=== PATIENT | female | born 1955 | race Caucasian/White ===

== ENCOUNTER → 2020-01-21 14:11 | Outpatient (CLI) | payer BC, SELFPAY ==
--- NOTE | ~2020-01-21 | XR_ITS ---
XR abdomen/kub 1V 01/21/2020 14:38 Indication: Left renal stones Procedure: KUB Comparison: No prior studies for comparison. Findings: There are left renal stones, largest measuring 1.8 cm. Bowel pattern nonobstructive. No acu te osseous abnormality. Lung bases unremarkable. There is a healed left 10th rib fracture. Impression: 1: Left nephrolithiasis. Reviewed, dictated and finalized at location B. NG RUNNING MACHINE TENDER Impression: 1: Left nephrolithiasis.
--- NOTE | ~2020-01-21 | CT_ITS ---
EXAMINATION: CT abdomen pelvis wo con DATE: 01/21/2020 14:40 INDICATION: Nephrolithiasis with left ureteropelvic junction obstruction TECHNIQUE: Computed tomography (CT) of the abdomen and pelvis was performed without intravenous contr ast. Automated exposure control and iterative reconstruction technique were employed. The dose-length product was 490.80 mGy-cm. COMPARISON: KUB dated 01/21/2020 FINDINGS: Lung bases are clear. Heart size is normal. No pericardial or pleural effusion. 12 mm hepatic cyst. G allbladder, spleen, pancreas and bilateral adrenal glands are normal. Bilateral low-attenuation subce ntimeter renal cysts. Bilateral nephrolithiasis with 1 nonobstructing 1 mm stone in the mid right kid jeffery. 1.7 x 1.4 x 1.2 cm obstructing stone at the left ureteropelvic junction with mild to moderate le ft hydronephrosis. There is an additional 5 mm stone at a lower pole calyx of the left kidney. No sto rosendo seen along the normal bilateral ureters. Bowels including the appendix are normal. Bladder is nor mal. The uterus is not identified and has likely been surgically resected. No free intraperitoneal ga s or fluid. No pathologically enlarged abdominal or pelvic lymphadenopathy. Severe spondylosis at the lumbosacral junction. IMPRESSION: 1. Bilateral nephrolithiasis with large obstructing stone at the left ureteropelvic junction with mil d to moderate left hydronephrosis. Reviewed, dictated and finalized at location A. HT ATTENDANT/INFLIGHT SUPERVISOR IMPRESSION: 1. Bilateral nephrolithiasis with large obstructing stone at the left ureterope lvic junction with mild to moderate left hydronephrosis.
== END ==
PROVIDERS: PCP Family Medicine Adolescent Medicine; Visit Provider Urology
DX: N20.2 Calculus of kidney with calculus of ureter (principal)
CPT/HCPCS: 74018; 74176

== ENCOUNTER → 2020-02-26 10:59 | Outpatient (CLI) | payer BC, SELFPAY ==
--- NOTE | ~2020-02-26 | MM_ITS ---
EXAMINATION: MM screening susanna BI w yudi HISTORY: Screening mammogram, family history of breast cancer in her sister. TECHNIQUE: Craniocaudal and mediolateral oblique 3-D tomosynthesis images were obtained and synthetic 2-D images were generated. CAD analysis was submitted and interpreted. COMPARISON: 09/12/2017, 01/07/2016, 06/02/2013 BREAST PARENCHYMAL COMPOSITION: There are scattered areas of fibroglandular density. FINDINGS: There is no evidence of suspicious mass, calcification, or architectural distortion to sugg est malignancy in either breast. There has been no suspicious interval change. IMPRESSION: 1. No mammographic evidence of malignancy. 2. Recommend routine screening mammography in one year. BI-RADS Category 1: Negative Reviewed, dictated and finalized at location A. ITY TENDER CARDING
--- NOTE | ~2020-02-26 | DEXA_ITS ---
Bone Density Report Name: Qi Anderson Age: 65 Sex: Female Ethnicity: White Date of : 1955 Indication: osteopenia; height loss; prior fracture; hysterectomy; postmenopausal Referring Provider: Enedelia, Tresa Paul Study: Bone densitometry was performed. Exam Date: February 26, 2020 Accession number: [id number] Bone Density: Region BMD T-score Z-score Classification AP Spine (L1-L4) 0.863 -1.7 0.0 Osteopenia Femoral Neck (Left) 0.678 -1.5 -0.1 Osteopenia Total Hip (Left) 0.832 -0.9 0.3 Normal Femoral Neck (Right) 0.685 -1.5 0.0 Osteopenia Total Hip (Right) 0.888 -0.4 0.7 Normal Total Hip Mean 0.860 -0.7 0.5 Normal World Health Organization criteria for BMD impression classify patients as: Normal (T-score at or above -1.0), Osteopenia (T-score between -1.0 and -2.5), or Osteoporosis (T-score at or below -2.5). 10-year Fracture Risk(1): Major Osteoporotic Fracture 14% Hip Fracture 1.4% Reported Risk Factors: [place] (), Neck BMD=0.678, BMI=31.3, previous fracture (1) FRAX(R) Version 3.08. Fracture probability calculated for an untreated patient. Fracture probability may be lower if the patient has received treatment. Previous Exams: Region Exam Age BMD T-score BMD Change BMD Change Date g/cm2 vs Baseline vs Previous AP Spine(L1-L4) 02/26/2020 65 0.863 -1.7 -0.015 -0.007 06/02/2013 58 0.870 -1.6 -0.008 0.028* 12/07/2011 56 0.842 -1.9 -0.035* -0.035* 08/28/2005 50 0.877 -1.5 Total Hip(Left) 02/26/2020 65 0.832 -0.9 -0.062* 0.074* 06/02/2013 58 0.758 -1.5 -0.136* -0.004 12/07/2011 56 0.762 -1.5 -0.132* -0.132* 08/28/2005 50 0.894 -0.4 Total Hip(Right) 02/26/2020 65 0.888 -0.4 -0.029* 0.075* 06/02/2013 58 0.813 -1.1 -0.104* -0.013 12/07/2011 56 0.826 -0.9 -0.091* -0.091* 08/28/2005 50 0.917 -0.2 *Denotes significance at 95% confidence level, LSC for AP Spine = 0.022 g/cm2, LSC for Total Hip = 0.027 g/cm2 Clinical Information Provided by Patient: Has had a low trauma fracture Has used the following medications: Diana (i.e. ibandronate) Has the following medical conditions: Hysterectomy Patient maximum height was 65 Menopause Age: 37 No regular weight bearing exercise Drinks caffeinated beverages Onset of menses at age 16 Number of children 2
== END ==
PROVIDERS: PCP Family Medicine Adolescent Medicine; Visit Provider Physician Assistant
DX: Z12.31 Encounter for screening mammogram for malignant neoplasm of breast (principal); Z78.0 Asymptomatic menopausal state; M85.88 Other specified disorders of bone density and structure, other site; M85.852 Other specified disorders of bone density and structure, left thigh; M85.851 Other specified disorders of bone density and structure, right thigh
CPT/HCPCS: 77063; 77067; 77080

== ENCOUNTER 2020-02-27 09:12 | Outpatient (CLI) | payer BC, SELFPAY ==
--- NOTE | 2020-02-27 09:13 | ECG_ITS ---
Measurements Intervals [place] Rate: 90 P: 65 CT: 202 QRS: -13 QRSD: 106 T: 61 QT: 349 QTc: 429 Interpretive Statements SINUS RHYTHM POSSIBLE LEFT ATRIAL ENLARGEMENT INCOMPLETE RIGHT BUNDLE BRANCH BLOCK NONSPECIFIC ST & T-WAVE ABNORMALITY- ANT/HIGH LAT LEADS BORDERLINE ECG Electronically Signed On 02-27-2020 9:38:52 RESIDENT ATHLETIC TRAINER by Drew Russell D.O.
[2020-02-27 10:26] LABS: Partial Thromboplastin Time 28.6 SECONDS (22.3-36.8); Prothrombin Time 13.9 Seconds (11.1-14.7)
== END 2020-02-27 09:13 | disposition home or self-care (01) ==
LOC: ANHSURGERY 09:13
PROVIDERS: PCP Family Medicine Adolescent Medicine; Visit Provider Urology
DX: Z01.818 Encounter for other preprocedural examination (principal); I10 Essential (primary) hypertension; N20.1 Calculus of ureter; I45.10 Unspecified right bundle-branch block
CPT/HCPCS: 36415; 85610; 85730; 87086; 93005

== ENCOUNTER 2020-03-02 01:22 | Outpatient (CLI) | payer BC, SELFPAY ==
[2020-03-02 19:22] LABS: SARS-CoV-2 RNA PCR Negative
== END 2020-03-02 01:23 | disposition home or self-care (01) ==
LOC: ANHCOVIDDT 01:22
PROVIDERS: PCP Family Medicine Adolescent Medicine; Visit Provider Urology
DX: Z01.812 Encounter for preprocedural laboratory examination (principal); Z20.822 Contact with and (suspected) exposure to COVID-19
CPT/HCPCS: C9803; U0003; U0005

== ENCOUNTER 2020-03-05 02:29 | Day surgery (SDC) | payer BC, SELFPAY ==
[2020-02-26 13:54] VITALS: BMI 31.2
--- NOTE | 2020-02-29 08:36 | PM.IMHP ---
H&P: HPI History of Present Illness Date/Time: 02/29/20 08:36 Chief Complaint: Calculus UPJ Narrative: Qi Anderson is a 65 year old female with a large left UPJ stone and recurrent UTI Review of Systems Review of Systems: All systems reviewed & are unremarkable except as noted in HPI and below [facility] Past Medical History Medical History (Updated 02/29/20 @ 08:38 by Kirby Fermin MD) Hyperlipidemia Hypertension SLE (systemic lupus erythematosus) Family History Family History Other Diabetes mellitus Family history of arthritis Hypertension Social History Social History Smoking status: Never smoker Alcohol intake: never Gender identity (if verbalized by the patient): Female Spiritual care concerns: No Meds Home Medications and Allergies Home Medications Medication Instructions Recorded Confirmed Type amlodipine 5 mg PO DAILY 01/07/19 02/26/20 History fenofibrate 160 mg PO QPM 01/07/19 02/26/20 History ibandronate [Boniva] 150 mg PO MONTHLY 01/07/19 02/26/20 History losartan 50 mg PO DAILY 01/07/19 02/26/20 History meloxicam 15 mg PO DAILY 01/07/19 02/26/20 History gsjkrmvl-xataj-kcdux-CF borate 1 tablet PO BID 02/26/20 02/26/20 History [[facility]] trazodone 100 mg PO HS 02/26/20 02/26/20 History trimethoprim 100 mg PO HS 02/26/20 02/26/20 History Allergies Allergy/AdvReac Type Severity Reaction Status Date / Time clomiphene [From Clomid] Allergy Rash Verified 02/26/20 13:35 Exam Const: General: cooperative and healthy appearing HENMT: Head: normal to inspection Eyes: General: appearance normal, both eyes and all related structures Neck: Neck: normal visual inspection Resp: Effort & Inspection: normal respiratory effort and able to speak in complete sentences GI: Inspection: normal to inspection Back/Spine/Pelvis: Back: no CVA tenderness Skin: General skin exam: normal color Neuro: General: patient oriented x3 Extrem: General: normal to inspection Assessment and Plan Assessment and plan (1) Obstruction of left ureteropelvic junction (UPJ) due to stone: Code(s): N20.1 - Calculus of ureter Status: Acute Assessment and Plan: Left EWL with stent (2) Recurrent cystitis: Code(s): N30.90 - Cystitis, unspecified without hematuria Status: Acute
--- NOTE | ~2020-03-05 | XR_ITS ---
EXAMINATION: XR abdomen/kub 1V INDICATION: Left nephrolithiasis TECHNIQUE: Supine views of the abdomen were obtained on 2 radiographs. COMPARISON: 01/21/2020 FINDINGS: A 2.5 cm stone projects in the left renal pelvis. There is a 5 mm stone projecting in the l eft kidney lower pole. No stones are identified in the right kidney, along the expected courses of th e ureters, or within the bladder. There are phleboliths in the pelvis. The bowel gas pattern is ara l. Mild bilateral hip osteoarthritis is noted. IMPRESSION: 1. Stones in the left renal pelvis and left kidney lower pole. Reviewed, dictated and finalized at location A. BATOR MACHINE OPERATOR
[2020-03-05 06:26] VITALS: BP 135/69; PULSE 79; RESP 16; TEMP 36.4; O2SAT 99
[2020-03-05] MEDS: LACTATED RINGERS 1,000 ML 30 ML IV CONT ×2 (06:39→08:26)
--- NOTE | 2020-03-05 06:57 | P.PNAN_ITS ---
Anes - Initial Pre Proc Eval Procedure: Operation Date: 03/05/20 07:30 Proposed Procedures p Left Ureteral Extracorporeal Shock Wave Lithotripsy, Left Ureteral Stent Placement - Kirby Fermin MD Date/Time: 03/05/20 06:57 Surgeon: Kirby Fermin MD Pre Op Diagnosis: Calculus of Ureter Patient Data Age: 65 Gender: F Height: 5 ft 4 in Weight: 81.1 kg Last Vital Signs Temp 36.4 C 03/05/20 06:26 Pulse 79 03/05/20 06:26 Resp 16 03/05/20 06:26 BP 135/69 03/05/20 06:26 Pulse Ox 99 03/05/20 06:26 Allergies Allergy/AdvReac Type Severity Reaction Status Date / Time clomiphene [From Clomid] Allergy Mild Rash Verified 03/05/20 06:04 Home Medications Medication Instructions Recorded Confirmed Type amlodipine 5 mg PO DAILY 01/07/19 03/05/20 History fenofibrate 160 mg PO QPM 01/07/19 03/05/20 History ibandronate [Boniva] 150 mg PO MONTHLY 01/07/19 03/05/20 History losartan 50 mg PO DAILY 01/07/19 03/05/20 History meloxicam 15 mg PO DAILY 01/07/19 03/05/20 History yiqpupwa-vmbkj-lvgcq-CF borate 1 tablet PO BID 02/26/20 03/05/20 History [[facility]] trazodone 100 mg PO HS 02/26/20 03/05/20 History trimethoprim 100 mg PO HS 02/26/20 03/05/20 History Patient hx anesthesia problems: none Family hx anesthesia problems: none PMFSH Past Medical History Medical History Hyperlipidemia Hypertension SLE (systemic lupus erythematosus) Family History Family History Other Diabetes mellitus Family history of arthritis Hypertension Social History Social History Smoking status: Never smoker Alcohol intake: never Living arrangements: with family Gender identity (if verbalized by the patient): Female Spiritual care concerns: No Anes - Eval Final PreProcedure Day of Procedure 03/05/20 06:57 Patient weight: obese Heart: regular rate and rhythm Lungs: clear to auscultation Airway: Mallampati scale class II Neurological: alert and oriented Last oral intake: >/= 8 hours ASA classification: III Emergent: no Anesthetic plan: proceed Anesthesia type and monitoring: general LMA and standard monitoring Informed Consent: The patient's anesthetic plan and its attendant risks and benefits were discussed with the patient/family/POA. Questions were solicited and answers provided to the satisfaction of the patient/family/POA.
--- NOTE | 2020-03-05 07:16 | WPDHPUPDATE1 ---
History and Physical Update Update Date/Time: 03/05/20 07:16 History and Physical has been reviewed, including an updated exam of the patient. There are NO changes in the patient's condition. Risks, benefits, and alternatives have been discussed and questions answered. Patient agrees to proceed with procedure.
[2020-03-05] MEDS: ceFAZolin 2 GM/D5W 50 ML 2 GM/50 ML BAG IVPB (07:24)
[2020-03-05] MEDS: LIDOCAINE HCL 2% GEL UROJET 10 ML PKG MUCOUS MEM (07:30)
[2020-03-05 08:26] VITALS: BP 125/55; PULSE 86; RESP 12; TEMP 36.7; O2SAT 100
--- NOTE | 2020-03-05 08:26 | PM.PROC ---
Procedure Note - Detailed Date of procedure: 03/05/20 Pre-op diagnosis: Calculus of Ureter Post-op diagnosis: same Procedure performed: Cystoscopy with left stent placement Extracorporeal shockwave lithotripsy Description of procedure: She was correctly identified and informed consent was obtained. She is brought to the operating room. She was given general anesthesia. She was placed in a frogleg position. She was prepped and draped in a sterile fashion. Time-out performed. Cystoscopy revealed a normal-appearing bladder. Stone was easily visible on laser printing operator. I placed a guidewire into the kidney. I placed a 4.8 variable length stent. Proximal coil was in the upper pole kidney. Distal coil in the bladder. She was then repositioned for lithotripsy. The stone was targeted. The lithotripsy was completed. There appeared to be fragmentation of the stone. At the conclusion she was awakened and transferred to the PACU in stable condition. She understands her stone is quite large and may require more than 1 procedure. She declined percutaneous nephrolithotomy. Implants: None Anesthesia: GLMA Surgeon: Kirby Fermin MD Estimated blood loss (mL): 0 Drains: Yes (4.8 variable length stent) Packing: No Pathology: none sent Complications: No immediate complications Condition: stable Disposition: PACU
[2020-03-05 08:35] VITALS: BP 115/71; PULSE 73; RESP 12; O2SAT 100
[2020-03-05 08:50] VITALS: BP 132/73; PULSE 70; RESP 12; O2SAT 100
[2020-03-05 09:00] VITALS: BP 134/74; PULSE 88; RESP 12
[2020-03-05 09:30] VITALS: BP 125/72; PULSE 82; RESP 12
== END 2020-03-05 09:40 | disposition home or self-care (01) ==
PROVIDERS: PCP Family Medicine Adolescent Medicine; Visit Provider Urology
PROC: (CPT 50590; principal; 2020-03-05 07:30)
DX: N20.1 Calculus of ureter (principal); N30.90 Cystitis, unspecified without hematuria; I10 Essential (primary) hypertension; E78.5 Hyperlipidemia, unspecified; M32.9 Systemic lupus erythematosus, unspecified
CPT/HCPCS: 50590; 52332; 74018; A9270; C1758; C1769; C2617; J0690; J2250; J2405; J2704; J3010; J7120

== ENCOUNTER → 2020-03-12 14:36 | Outpatient (CLI) | payer BC, SELFPAY ==
--- NOTE | ~2020-03-12 | XR_ITS ---
EXAMINATION: XR abdomen/kub 1V INDICATION: Obstruction of the left ureteropelvic junction due to stones TECHNIQUE: Supine views of the abdomen were obtained on 2 radiographs. COMPARISON: 03/05/2020 FINDINGS: There is a 2 cm stone in the left kidney lower pole which appears to demonstrate decrease i n density and interval fragmentation since the comparison examination. A left internal ureteral stent has been placed in expected position. No definite stones are identified adjacent to the internal ure teral stent. Phleboliths are noted in the pelvis. IMPRESSION: 1. Decrease in size and density of a left kidney stone likely related to interval lithotripsy. Left i nternal ureteral stent in expected position. Reviewed, dictated and finalized at location A. EYOR IMPRESSION: 1. Decrease in size and density of a left kidney stone likely related to interv al lithotripsy. Left internal ureteral stent in expected position.
== END ==
PROVIDERS: PCP Family Medicine Adolescent Medicine; Visit Provider Urology
DX: N20.1 Calculus of ureter (principal)
CPT/HCPCS: 74018

== ENCOUNTER → 2020-03-25 08:12 | Outpatient (CLI) | payer BC, SELFPAY ==
--- NOTE | ~2020-03-25 | XR_ITS ---
XR abdomen/kub 1V DATE: 03/25/2020 08:33 INDICATION: Stone obstructing left ureteropelvic junction TECHNIQUE: AP projection, 2 views COMPARISON: 03/12/2020 KUB FINDINGS: Left internal urinary stent is again noted, unchanged in position since 03/12/2020. There are multiple calcifications overlying the mid and lower pole left kidney, the largest overlying the lower pole measuring up to 1.5 cm approximate maximal dimension. The psoas shadows are intact. No visceromegaly is evident. No evidence of bowel obstruction. IMPRESSION: Left internal urinary stent Left nephrolithiasis Reviewed, dictated and finalized at Location A. Reviewed, dictated and finalized at location A. CORNER MACHINE OPERATOR
== END ==
PROVIDERS: PCP Family Medicine Adolescent Medicine; Visit Provider Urology
DX: N20.1 Calculus of ureter (principal)
CPT/HCPCS: 74018

== ENCOUNTER 2020-07-02 08:01 | Outpatient (CLI) | payer BC, SELFPAY ==
--- NOTE | ~2020-07-02 | US_ITS ---
EXAMINATION: US retroperitoneal comp DATE: 07/02/2020 08:44 INDICATION: Left renal stone TECHNIQUE: Multiple ultrasound grayscale images of the kidneys were obtained. COMPARISON: CT dated 01/21/2020 FINDINGS: The right kidney measures 11.5 x 5.9 x 5.7 cm. The left kidney measures 10.7 x 4.5 x 5.8 cm. The kidn eys demonstrate normal echogenicity. 10 mm and 13 mm anechoic cysts in the right kidney. 10 mm anecho ic cyst at the lower pole of the left kidney. No right-sided hydronephrosis. Mild left hydronephrosis . Echogenic and shadowing stones versus clusters of stones filling 3 calyces at the lower pole of the left kidney and measuring from 1.1 cm to 2.4 cm. The bladder is normal. IMPRESSION: 1. Mild left hydronephrosis with large stones or clusters of smaller stones filling 3 of the calyces at the lower pole of the left kidney. Reviewed, dictated and finalized at location A. IMPRESSION: 1. Mild left hydronephrosis with large stones or clusters of smaller stones fi lling 3 of the calyces at the lower pole of the left kidney.
--- NOTE | ~2020-07-02 | XR_ITS ---
EXAMINATION: XR abdomen/kub 1V DATE: 07/02/2020 08:44 INDICATION: Left kidney stone. TECHNIQUE: A supine view of the abdomen on 2 radiographs was obtained. COMPARISON: CT abdomen and pelvis 01/21/2020 FINDINGS: There are no dilated loops of bowel. There are innumerable overlapping stones in the left k idney. The size of the largest stone is not clear. There are phleboliths in the pelvis. IMPRESSION: 1. Left kidney stones. Reviewed, dictated and finalized at location B. IMPRESSION: 1. Left kidney stones.
== END 2020-07-02 08:02 | disposition home or self-care (01) ==
PROVIDERS: PCP Family Medicine Adolescent Medicine; Visit Provider Urology
DX: N20.0 Calculus of kidney (principal)
CPT/HCPCS: 74018; 76770

== ENCOUNTER → 2020-12-06 07:56 | Outpatient (CLI) | payer BC, SELFPAY ==
--- NOTE | ~2020-12-06 | XR_ITS ---
XR abdomen/kub 1V 12/06/2020 08:41 Indication: Left renal stones Procedure: KUB Comparison: Comparison to multiple prior studies sequentially, with oldest reviewed study dated 03/05. Findings: Bowel gas pattern is nonobstructive with moderate colonic fecal loading. There are punctate radiodensities overlying the left kidney, suspicious for renal stones. No acute osseous abnormality. There is a left pelvic phlebolith. Impression: 1: Possible left nephrolithiasis. Reviewed, dictated and finalized at location B. Impression: 1: Possible left nephrolithiasis.
== END ==
PROVIDERS: PCP Family Medicine Adolescent Medicine; Visit Provider Urology
DX: N20.0 Calculus of kidney (principal)
CPT/HCPCS: 74018

== ENCOUNTER → 2021-08-26 07:21 | Outpatient (CLI) | payer OTHER, SELFPAY ==
--- NOTE | ~2021-08-26 | XR_ITS ---
EXAMINATION: XR abdomen/kub 1V INDICATION: Left-sided kidney stone TECHNIQUE: Supine views of the abdomen were obtained on 2 radiographs. COMPARISON: 12/06/2020 FINDINGS: No definite urolithiasis is identified. A punctate density projecting near the left kidney appears to be associated with the tip of the left 12th rib. There are phleboliths of the pelvis. The bowel gas pattern is normal. IMPRESSION: 1. No urolithiasis identified. Reviewed, dictated and finalized at location B.
== END ==
PROVIDERS: PCP Family Medicine Adolescent Medicine; Visit Provider Urology
DX: N20.0 Calculus of kidney (principal)
CPT/HCPCS: 74018

== ENCOUNTER → 2021-11-01 07:22 | Outpatient (CLI) | payer OTHER, SELFPAY ==
--- NOTE | ~2021-11-01 | MM_ITS ---
EXAMINATION: MM screening susanna BI w yudi HISTORY: Screening mammogram TECHNIQUE: Craniocaudal and mediolateral oblique 3-D tomosynthesis images were obtained and synthetic 2-D images were generated. CAD analysis was submitted and interpreted. COMPARISON: 02/26/2020, 09/12/2017, 12/28/2015 bilateral screening mammogram examinations BREAST PARENCHYMAL COMPOSITION: There are scattered areas of fibroglandular density. FINDINGS: There is no evidence of suspicious mass, calcification, or architectural distortion to sugg est malignancy in either breast. There has been no suspicious interval change. IMPRESSION: 1. No mammographic evidence of malignancy. 2. Recommend routine screening mammography in one year. BI-RADS Category 1: Negative Reviewed, dictated and finalized at location A.
== END ==
PROVIDERS: PCP Family Medicine Adolescent Medicine; Visit Provider Physician Assistant
DX: Z12.31 Encounter for screening mammogram for malignant neoplasm of breast (principal)
CPT/HCPCS: 77063; 77067

== ENCOUNTER → 2022-10-12 10:28 | Outpatient (CLI) | payer OTHER, SELFPAY ==
--- NOTE | ~2022-10-12 | XR_ITS ---
EXAMINATION: XR humerus LT INDICATION: Left shoulder pain TECHNIQUE: Two views of the left humerus are obtained. COMPARISON: None available FINDINGS: Bone alignment is normal. There is no fracture. The soft tissues are unremarkable. There is moderate osteoarthritis of the acromioclavicular joint. IMPRESSION: 1. Moderate acromioclavicular joint osteoarthritis. Reviewed, dictated and finalized at location A.
--- NOTE | ~2022-10-12 | XR_ITS ---
EXAMINATION: XR shoulder LT min 2V INDICATION: Left shoulder pain TECHNIQUE: Four views of the left shoulder are submitted. COMPARISON: None FINDINGS: Normal alignment. No fracture. There is moderate osteoarthritis of the acromioclavicular mariaelena int. Soft tissues are unremarkable. IMPRESSION: 1. Moderate osteoarthritis of the acromioclavicular joint. Reviewed, dictated and finalized at location A.
== END ==
PROVIDERS: PCP Family Medicine Adolescent Medicine; Visit Provider Family Medicine Adolescent Medicine
DX: M19.012 Primary osteoarthritis, left shoulder (principal)
CPT/HCPCS: 73030; 73060

== ENCOUNTER → 2023-01-15 10:31 | Outpatient (CLI) | payer OTHER, SELFPAY ==
--- NOTE | ~2023-01-15 | MM_ITS ---
EXAMINATION: MM screening susanna BI w yudi HISTORY: Screening mammogram TECHNIQUE: Craniocaudal and mediolateral oblique 3-D tomosynthesis images were obtained and synthetic 2-D images were generated. CAD analysis was submitted and interpreted. COMPARISON: 11/01/2021, 02/26/2020, 09/12/2017 bilateral screening mammogram examinations BREAST PARENCHYMAL COMPOSITION: There are scattered areas of fibroglandular density. FINDINGS: There is no evidence of suspicious mass, calcification, or architectural distortion to sugg est malignancy in either breast. There has been no suspicious interval change. IMPRESSION: 1. No mammographic evidence of malignancy. 2. Recommend routine screening mammography in one year. BI-RADS Category 1: Negative Reviewed, dictated and finalized at location A. 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
== END ==
PROVIDERS: PCP Family Medicine Adolescent Medicine; Visit Provider Family Medicine Adolescent Medicine
DX: Z12.31 Encounter for screening mammogram for malignant neoplasm of breast (principal)
CPT/HCPCS: 77063; 77067

== ENCOUNTER → 2023-01-15 10:33 | Outpatient (CLI) | payer OTHER, SELFPAY ==
--- NOTE | ~2023-01-15 | XR_ITS ---
XR abdomen/kub 1V 01/15/2023 11:22 INDICATION: Left kidney stone TECHNIQUE: KUB COMPARISON: None FINDINGS: Bowel gas pattern is normal. There is no evidence of free air, mass, organomegaly, ascites or obstruction. There is a 2 mm stone in the left kidney. Moderate lumbar spondylosis.. The bones a ppear intact. IMPRESSION: 1: Left nephrolithiasis.. Reviewed, dictated and finalized at location B. BORER IMPRESSION: 1: Left nephrolithiasis..
== END ==
PROVIDERS: PCP Urology; Visit Provider Urology
DX: N20.0 Calculus of kidney (principal)
CPT/HCPCS: 74018

== ENCOUNTER 2023-07-17 06:56 | Outpatient (CLI) | payer OTHER, SELFPAY ==
--- NOTE | ~2023-07-17 | XR_ITS ---
Supine and upright views of the abdomen Clinical history: Left renal stone COMPARISON: 01/15/2023 Findings: Bowel gas pattern is nonspecific. No evidence for obstruction or free air. 4 mm left lower pole renal stone noted. Osseous structures are intact. Impression: 4 mm left lower pole renal stone. Reviewed, dictated and finalized at [facility]. Impression: 4 mm left lower pole renal stone.
== END 2023-07-17 06:57 ==
PROVIDERS: PCP Family Medicine Adolescent Medicine; Visit Provider Urology
DX: N20.0 Calculus of kidney (principal)
CPT/HCPCS: 74018

== ENCOUNTER 2024-03-04 08:12 | Outpatient (CLI) | payer OTHER, SELFPAY ==
--- NOTE | ~2024-03-04 | XR_ITS ---
XR abdomen/kub 1V Ordering provider: Jose E Rodrigues MD History: . Kidney stone on L side . Comparison: None. FINDINGS: BOWEL: Nonobstructive bowel gas pattern. ORGANOMEGALY: None. SIGNIFICANT PATHOLOGIC CALCIFICATIONS: Left kidney stone. OTHER: No free air is seen under the diaphragm. Degenerative changes of the spine. Mild bilateral hip osteoarthritic changes. IMPRESSION: NO ACUTE ABDOMINAL FINDINGS. Left kidney stone. Reviewed, dictated and finalized at location A. NTORY ASSISTANT
== END 2024-03-04 08:13 | disposition home or self-care (01) ==
PROVIDERS: PCP Family Medicine Adolescent Medicine; Visit Provider Urology
DX: N20.0 Calculus of kidney (principal)
CPT/HCPCS: 74018

== ENCOUNTER 2024-07-30 09:40 | Outpatient (CLI) | payer OTHER, SELFPAY ==
--- NOTE | ~2024-07-30 | MM_ITS ---
EXAMINATION: MM screening susanna BI w yudi HISTORY: Screening TECHNIQUE: Craniocaudal and mediolateral oblique 3-D tomosynthesis images were obtained and synthetic 2-D images were generated. CAD analysis was submitted and interpreted. COMPARISON: Comparison to multiple prior studies sequentially, with oldest reviewed study dated 09/2015. BREAST PARENCHYMAL COMPOSITION: Not dense: There are scattered areas of fibroglandular density. FINDINGS: There is no evidence of suspicious mass, calcification, or architectural distortion to sugg est malignancy in either breast. There has been no suspicious interval change. IMPRESSION: 1. No mammographic evidence of malignancy. 2. Recommend routine screening mammography in one year. BI-RADS Category 1: Negative Reviewed, dictated and finalized at location B.
== END 2024-07-30 09:41 | disposition home or self-care (01) ==
LOC: MICIMG 09:41
PROVIDERS: PCP Family Medicine Adolescent Medicine; Visit Provider Family Medicine Adolescent Medicine
DX: Z12.31 Encounter for screening mammogram for malignant neoplasm of breast (principal)
CPT/HCPCS: 77063; 77067

== ENCOUNTER 2024-08-19 08:35 | Outpatient (CLI) | payer OTHER, SELFPAY ==
--- NOTE | ~2024-08-19 | DEXA_ITS ---
Bone Density Report Name: TRINIDAD ARMSTRONG Age: 69 Sex: Female Ethnicity: White Date of : 1955 Indication: osteopenia; hysterectomy; Referring Provider: CLAUS GIBSON Study: Bone densitometry was performed. Exam Date: August 19, 2024 Accession number: [id number] Bone Density: Region BMD T-score Z-score Classification AP Spine(L1-L4) 0.885 -1.5 0.5 Osteopenia Femoral Neck (Left) 0.600 -2.2 -0.5 Osteopenia Total Hip (Left) 0.730 -1.7 -0.3 Osteopenia Femoral Neck (Right) 0.683 -1.5 0.2 Osteopenia Total Hip (Right) 0.786 -1.3 0.1 Osteopenia Total Hip Mean 0.758 -1.5 -0.1 Osteopenia World Health Organization criteria for BMD impression classify patients as: Normal (T-score at or above -1.0), Osteopenia (T-score between -1.0 and -2.5), or Osteoporosis (T-score at or below -2.5). 10-year Fracture Risk(1): Major Osteoporotic Fracture 12% Hip Fracture 2.2% Reported Risk Factors: [place] (), Neck BMD=0.600, BMI=31.7 (1) FRAX(R) Version 3.08. Fracture probability calculated for an untreated patient. Fracture probability may be lower if the patient has received treatment. Previous Exams: -- Region Exam Age BMD T-score BMD Change BMD Change Date g/cm2 vs Baseline vs Previous -- AP Spine (L1-L4) 08/19/2024 69 0.885 -1.5 0.9%# 2.6%# 02/26/2020 65 0.863 -1.7 -1.7% -0.8% 06/02/2013 58 0.870 -1.6 -0.9% 3.3%* 12/07/2011 56 0.842 -1.9 -4.0%* -4.0%* 08/28/2005 50 0.877 -1.5 Total Hip(Left) 08/19/2024 69 0.730 -1.7 -18.3%# -12.2%# 02/26/2020 65 0.832 -0.9 -6.9%* 9.8%* 06/02/2013 58 0.758 -1.5 -15.2%* -0.5% 12/07/2011 56 0.762 -1.5 -14.8%* -14.8%* 08/28/2005 50 0.894 -0.4 Total Hip(Right) 08/19/2024 69 0.786 -1.3 -14.3%# -11.5%# 02/26/2020 65 0.888 -0.4 -3.2%* 9.2%* 06/02/2013 58 0.813 -1.1 -11.3%* -1.6% 12/07/2011 56 0.826 -0.9 -9.9%* -9.9%* 08/28/2005 50 0.917 -0.2 -- *Denotes significance at 95% confidence level, LSC for AP Spine = 0.022 g/cm2, LSC for Total Hip = 0.027 g/cm2 # Denotes dissimilar scan types or analysis methods Clinical Information Provided by Patient: Has used the following medications: Diana (i.e. ibandronate) Has the following medical conditions: Hysterectomy Patient maximum height was 65 Menopause Age: 37 No regular weight bearing exercise Does not regularly consume dairy products Drinks caffeinated beverages Onset of menses at age 15 Number of children 2 Impression: The patient has low bone mass, based on the Left Femoral Neck T-score. The patient has an estimated ten-year risk of hip fracture of 2.2% and an estimated ten-year risk of major fracture of 12%, based on the WHO FRAX algorithm. Unable to evaluate interval change due to the use of different scan modes. Discussion: BONE DENSITY IS LOW AT ONE OR MORE SKELETAL SITES. This patient's lowest T-score is low at one or more skeletal sites. It meets the World Health Organization's (WHO) criteria for ?low bone mass? (T-score between -1.0 and -2.5). The patient's 10-year risk of fracture as calculated by FRAX is less than the threshold where pharmacological therapy is recommended by the National Osteoporosis Foundation (NOF). However, all treatment decisions require clinical judgment and consideration of individual patient factors, including patient preferences, comorbidities, previous drug use, risk factors not captured in the FRAX model (e.g., frailty, falls, vitamin D deficiency, increased bone turnover, interval significant decline in bone density) and possible under or overestimation of fracture risk by FRAX. The patient should follow a healthful lifestyle (good nutrition with adequate calcium and vitamin D, and appropriate weight-bearing exercise). Follow-Up: Consider repeating this study in 2 to 3 years to reassess this patient's status, or sooner if there is some new clinical indication. Reported by: DIALLO on 08/19/2024 8:51:00 AM. Reviewed, dictated and finalized at location A.
== END 2024-08-19 08:36 | disposition home or self-care (01) ==
LOC: MICIMG 08:36
PROVIDERS: PCP Family Medicine Adolescent Medicine; Visit Provider Family Medicine Adolescent Medicine
DX: Z78.0 Asymptomatic menopausal state (principal); M85.88 Other specified disorders of bone density and structure, other site; M85.852 Other specified disorders of bone density and structure, left thigh; M85.851 Other specified disorders of bone density and structure, right thigh
CPT/HCPCS: 77080

== ENCOUNTER 2024-09-15 17:36 | Inpatient (IN) | payer OTHER, SELFPAY ==
--- NOTE | ~2024-09-15 | CT_ITS ---
CLINICAL INDICATION: Cough, fever, urinary tract infection and shortness of breath COMPARISON: 01/21/2020. TECHNIQUE: Multiple contiguous axial images of the chest, abdomen and pelvis were performed without t he administration of intravenous contrast The dose-length product (DLP) was 732.54 mGy-cm. Automated exposure control and iterative reconstruction technique were employed. FINDINGS/OBSERVATIONS: LUNG: Left basilar atelectasis. The remainder of the lungs are clear. MEDIASTINUM: Limited evaluation without intravenous contrast. HEART: The heart is of normal size, with a small pericardial effusion. SOFT TISSUES OF THE CHEST: Unremarkable. Liver: The liver demonstrates homogeneous attenuation and is not enlarged. Gallbladder and biliary system: The gallbladder is only minimally distended, and otherwise unremarkable. Pancreas: Limited evaluation of the pancreas secondary to the lack of intravenous contrast. Spleen: The spleen demonstrates homogeneous attenuation and is not enlarged. Kidneys: Global enlargement of the heterogeneous right kidney with moderate right-sided hydroureteronephrosis secondary to a 5 mm calcification within the proximal to mid right ureter. The left kidney and left ureter are unremarkable Adrenal glands: Unremarkable. Gastrointestinal tract: Fecal stasis within the colon. No free fluid within the abdomen or pelvis. Appendix: The air-filled appendix is of normal caliber (axial series, images 193-207). Vasculature: Unremarkable. Lymph nodes: Limited evaluation without intravenous contrast. Pelvic structures: The bladder is decompressed, limiting its evaluation. The uterus is either surgically absent or markedly atrophic. Body wall and musculoskeletal: No umbilical hernia. Age-appropriate degenerative disease within the thoracic and lumbosacral spines. IMPRESSION: Moderate right-sided hydroureteronephrosis secondary to a 5 mm calculus proximal to mid right ureter. Reviewed, dictated and finalized at location A. IMPRESSION: Moderate right-sided hydroureteronephrosis secondary to a 5 mm calculus proxima l to mid right ureter.
--- NOTE | ~2024-09-15 | XR_ITS ---
CHEST RADIOGRAPH, PA AND LATERAL CLINICAL HISTORY: unknown source of infection . COMPARISON: 05/28/2017 TECHNIQUE: PA and lateral views of the chest. FINDINGS The cardiomediastinal silhouette is unremarkable. Trace left basilar atelectasis. The remainder of the lungs are clear. IMPRESSION: Trace left basilar atelectasis, without focal infiltrate or effusion. Reviewed, dictated and finalized at location A.
--- NOTE | ~2024-09-15 | XR_ITS ---
EXAMINATION: XR retrograde pyelo w/stent RT DATE: 09/16/2024 15:40 CDT INDICATION: RIGHT STENT PLACEMENT . TECHNIQUE: 5 fluoroscopic images of the right abdomen and pelvis were obtained during right retrograd e pyelography with stent placement. Fluoroscopy exposure time was 12.4 seconds. Air Kerma 5.06 mGy. D AP 0.20 mGym2. COMPARISON: CT cap 09/07/2024; x-ray abdomen 09/16/2024 FINDINGS/IMPRESSION: Fluoroscopic documentation of right retrograde pyelography with stent placement. Please refer to the operative note for complete procedural details. Reviewed, dictated and finalized at location K.
--- NOTE | ~2024-09-15 | XR_ITS ---
XR abdomen/kub 1V 09/16/2024 01:29 Indication: Kidney stones Procedure: KUB Comparison: Comparison to multiple prior studies sequentially, with oldest reviewed study dated 09/2021. Findings: There is a left renal stone. Bowel gas pattern nonobstructive. Lung bases unremarkable. No acute osseous abnormality. Irregular shaped calcification at the L4-5 level on the right, suspicious for ureteral stone. Impression: 1: Possible right ureteral stone at the L4-5 level. 2: Left nephrolithiasis. Reviewed, dictated and finalized at location B. Impression: 1: Possible right ureteral stone at the L4-5 level. 2: Left nephrolithiasis.
--- OUTSIDE RECORDS SUMMARY | 2024-09-15 17:39 | XMS_ITS | Encounter Summary ---
Author Organization [facility] Address [address] [place] [address] Care Team Providers Care Traffic Ii Manager Name Role Phone Chacorta Valenzuela MD Primary Care Provider +1- [phone] Encounter Details Date Type Department Care Team (Late st Contact Info) Description 11/03/2020 Prep for Procedure [facility] [place] [address] Jose E Rodrigues MD [address] [facility] [place] [address] Social History Tobacco Use Types Packs/Day Years Used Date Smoking Tobacco: Never Smokeless Tobacco: Never Alcohol Use Standard Drinks/Week Comments Never 0 (1 standard drink = 0.6 oz pur e alcohol) Comments No Sex and Gender Information Value Date Recorded Sex Assigned at Not on file Legal Sex Female 12:55 PM CDT Gender Identity Not on file Sexual Orientation Not on file COVID-19 Exposure Response Date Recorded In the last month, have you been in contact with someone who was confirmed or suspected to have Coronavirus / COVID-19? No / Unsure 11/03/2020 5:07 AM CDT documented as of this encounter Functional Status * Calculated C-SSRS Risk Score (Lifetime/Recent) Answer Date of Assessment Author Status No Risk Indicated 11/03/2020 5:58 AM CDT Labadie, Erica la V, RN Active * [place] Suicide Severity Rating Scale (Screener/Recent Self-Report) Question Answer Date of Assessment Author Status 1. Wish to be (Past 1 Month) No 11/03/2020 5:58 AM CDT Mony Nicole RN Act sebastien 2. Non-Specific Active Suicidal Thoughts (Past 1 Month) No 11/03/2020 5:58 AM CDT Mony Nicole RN Act sebastien 6. Suicidal Behavior (Lifetime) No 11/03/2020 5:58 AM CDT Mony Nicole RN Act sebastien documented as of this encounter Plan of Treatment Not on file documented as of this encounter Results * (ABNORMAL) BASIC METABOLIC PANEL (11/01/2020 8:37 AM CDT) [facility] GLUCOSE 98 70 - 99 MG/DL 11/01/2020 9:55 AM CDT [facility] BUN 19(H) 7 - 18 MG/DL 11/01/2020 9:55 AM CDT [facility] CREATININE S/P/B 1.10(H) 0.55 - 1.02 MG/DL 11/01/2020 9:55 AM CDT [facility] SODIUM S/P/B 140 136 - 145 MMOL/L 11/01/2020 9:55 AM CDT [facility] POTASSIUM S/P/B 4.3 3.5 - 5.1 MMOL/L 11/01/2020 9:55 AM CDT [facility] CHLORIDE S/P/B 106 100 - 108 MMOL/L 11/01/2020 9:55 AM CDT [facility] CO2 28.3 21 - 32 MMOL/L 11/01/2020 9:55 AM CDT [facility] CALCIUM S/P/B 9.7 8.5 - 10.1 MG/DL 11/01/2020 9:55 AM CDT [facility] ANION GAP 5.7 5 - 15 MMOL/L 11/01/2020 9:55 AM CDT [facility] BUN CREATININE RATIO 17.3 6 - 26 11/01/2020 9:55 AM CDT [facility] EGFR NON-AFR. AMER. 53(L) >90 ML/MIN/1.7 3 M2 11/01/2020 9:55 AM CDT [facility] EGFR AFR. AMER. 61(L) >90 ML/MIN/1.7 3 M2 11/01/2020 9:55 AM CDT [facility] Comment: NOTE: eGFR is not calculated for patients <18 years of age. This is an estimated GFR (CKD EPI) and should not be used for calculating drug doses. 11/01/2020 8:37 AM CDT Gretchen Llamas [facility] Final R esult [facility] [address] [place] [address], [place] [phone] * (ABNORMAL) CBC W/DIFF AUTOMATED (11/01/2020 8:37 AM CDT) WBC 7.4 4.5 - 11.0 x10'3/uL 11/01/2020 9:36 AM CDT [facility] RBC 4.10(L) 4.20 - 5.40 x10'6/uL 11/01/2020 9:36 AM CDT [facility] HGB 11.6(L) 12.0 - 16.0 G/DL 11/01/2020 9:36 AM CDT [facility] HCT 36.1(L) 38.0 - 48.0 % 11/01/2020 9:36 AM CDT [facility] MCV 88.0 81.0 - 99.0 FL 11/01/2020 9:36 AM CDT [facility] MCH 28.3 27.0 - 31.0 PG 11/01/2020 9:36 AM CDT [facility] MCHC 32.1 32.0 - 36.0 G/DL 11/01/2020 9:36 AM CDT [facility] RDW 12.7 11.5 - 14.5 % 11/01/2020 9:36 AM CDT [facility] PLT 294 130 - 400 x10'3/uL 11/01/2020 9:36 AM CDT [facility] MPV 9.6 9.3 - 12.2 FL 11/01/2020 9:36 AM CDT [facility] DIFFERENTIAL TYPE AUTOMATED DIFFERENTIAL 11/01/2020 9:36 AM CDT [facility] NEUTROPHILS % 58.0 % 11/01/2020 9:36 AM CDT [facility] LYMPHOCYTES % 26.1 % 11/01/2020 9:36 AM CDT [facility] MONOCYTES % 9.8 % 11/01/2020 9:36 AM CDT [facility] EOSINOPHILS 5.0 % 11/01/2020 9:36 AM CDT [facility] BASOPHILS 0.4 % 11/01/2020 9:36 AM CDT [facility] IMMATURE GRANS % 0.7 % 11/02/19 9:36 AM CDT [facility] ABS. NEUTROPHILS TOTAL 4.31 1.80 - 7.70 x10'3/uL 11/01/2020 9:36 AM CDT [facility] ABS. LYMPHOCYTES 1.94 1.00 - 4.80 x10'3/uL 11/01/2020 9:36 AM CDT [facility] ABS. MONOCYTES 0.73 0.24 - 0.86 x10'3/uL 11/01/2020 9:36 AM CDT [facility] ABS. EOSINOPHILS 0.37(H) 0.04 - 0.36 x10'3/uL 11/01/2020 9:36 AM CDT [facility] ABS. BASOPHILS 0.03 0.01 - 0.08 x10'3/uL 11/01/2020 9:36 AM CDT [facility] ABS. IMMATURE GRANULOCYTES 0.05 0.00 - 0.49 x10'3/uL 11/01/2020 9:36 AM CDT [facility] 11/01/2020 8:37 AM CDT us Gretchen Llamas [facility] Final R esult [facility] [address] [place] [address], documented in this encounter Visit Diagnoses Diagnosis Preoperative testing- Primary Preoperative examination, unspecified documented in this encounter Care Teams Traffic Ii Manager Relationship Specialty Start Date End Date Chacorta Valenzuela MD [address] [place] [id number] PCP - General FAMILY PRACTICE 11/01/20 documented as of this encounter
--- OUTSIDE RECORDS SUMMARY | 2024-09-15 17:39 | XMS_ITS | Encounter Summary ---
Author Organization [facility] Address [address] [place] [address] Care Team Providers Care Rn Emergency Room Name Role Phone Unavailable Primary Care Provider Unavailabl e Encounter Details Date Type Department Care Team (Late st Contact Info) Description 12/19/2023 Lab Requisition [facility] - DermPath Lab [address] [place] [id number] Veronika Lancaster PA-C [address] [place] [address] Dermatitis, unspecified Social History Tobacco Use Types Packs/Day Years Used Date Smoking Tobacco: Never Assessed Comments Unknown Sex and Gender Information Value Date Recorded Sex Assigned at Not on file Legal Sex Female 11:40 AM CDT Gender Identity Not on file Sexual Orientation Not on file documented as of this encounter Plan of Treatment Not on file documented as of this encounter Procedures Procedure Name Priority Date/Time Associated Diagnosis Comments IMMUNOFLUORESCENT STUDY DERM Routine 12/19/2023 12:00 AM CDT Dermatitis, unspecified documented in this encounter Results * IMMUNOFLUORESCENT STUDY DERM (12/19/2023 12:00 AM CDT) Case Report Dermatopathol ogy Report Case: [id number] Authorizing Provider: Veronika Lancaster, Collected: 12/19/2023 12:00 AM BETHANIE Ordering Location: [facility] - Received: 12/20/2023 11:58 AM DermPath Lab Pathologist: Susie Crowley MD Specimen: Skin, left distal thigh 4 5:19 PM [facility] Final Diagnosis Specimen A. SKIN, left distal thigh: NO IMMUNOPATHOLO GICAL ABNORMALITY (L98.9) (see fixed tissue results [id number]) 4 5:19 PM [facility]ATH[facility] at [address] [facility] Direct Immunofluorescence Report - Specimen A Specimen A IgA IgM IgG C3 CollV Fibrinogen Epidermis Negative Negative Negative Negative Negative Negative Basement Membrane Negative Negative Negative Negative 2+ Negative Vessels Negative Negative Negative Negative 2+ Negative Interstitium Negative Negative Negative Negative Negative Non specific 4 5:19 PM [facility] Clinical History Acute cutaneous lupus erythematosus 4 5:19 PM [facility] Gross Description Specimen A: Received is one Wilton's media filled container labeled with the patient's name and designated left distal thigh. The specimen consists of a punch biopsy measuring 3x3x3 mm. The specimen is submitted in whole for direct immunofluores cence testing. 5:19 PM [facility]ATH[facility] Microscopic Description Specimen A. SKIN, left distal thigh: Controls were run in parallel. Staining is negative with IgA, IgM, IgG, and C3. Collagen IV stains the basement membrane zone and vessels. Fibrinogen shows non-specific staining. A hematoxylin and eosin stained frozen section shows no significant inflammation. See fixed tissue results. 5:19 PM [facility]ATH[facility] Disclaimer An external and internal positive and negative controls are appropriate for the histochemical , immunohistoch emical and immunofluores cence stain(s) in this case (if any), except where stated explicitly. The performance characteristi cs of the stain(s) cited in this report were developed and its performance characteristi c determined by the Dermatopathol ogy Laboratory at [facility], directed by Dr. Humberto Crowley. These tests need not be, and therefore are not, approved by the [place] Food and Drug Administratio n. The tests are used for clinical purposes. Billing Codes Specimen Charges Stain Charges 95192 [id number] [id number] 07595 72222 1 1 1 1 1 1 4 5:19 PM [facility]ATH[facility] Embedded Images 5:19 PM [facility] Pathology/Cytolog y TISSUE SPECIMEN FROM SKIN / Unknown 12/19/2023 12/20/2023 11:58 AM CDT Veronika Lancaster PA-C LAB - PATHOLOGY/CYTO LOGY ORDERABLES Final Result DERMATOPATHOLOGY LABORATORY [facility] - Department of Dermatology [facility] [address] [place] [address], [address] [phone] documented in this encounter Visit Diagnoses Diagnosis Dermatitis, unspecified documented in this encounter
--- OUTSIDE RECORDS SUMMARY | 2024-09-15 17:39 | XMS_ITS | Encounter Summary ---
Author Organization [facility] Address [address] [place] [address] Care Team Providers Care Customs Broker Name Role Phone Chacorta Valenzuela MD Primary Care Prov ider Jose E Rodrigues MD Unavailable +1- [phone] Encounter Details Date Type Department Care Team (Late st Contact Info) Description 09/20/2020 Telephone [facility] - Interventional Radiology [address] [place] [address] Marycruz Conte RN Social History Tobacco Use Types Packs/Day Years Used Date Smoking Tobacco: Never Smokeless Tobacco: Never AUDIT-C Answer Date Recorded Q1: How often do you have a drink containing alc ohol? Never 09/21/2020 Average Number of Drinks Not on file 021 Q3: How often do you have si x or more drinks on one occasion? Never 09/21/2020 Comments Unknown Sex and Gender Information Value Date Recorded Sex Assigned at Not on file Legal Sex Female 11:53 AM ADMISSIONS EVALUATOR Gender Identity Female 09/14/2020 6:35 AM CDT Sexual Orientation Straight 09/14/2020 6: 35 AM CDT documented as of this encounter Functional Status documented as of this encounter Plan of Treatment Not on file documented as of this encounter Visit Diagnoses Not on filedocumented in this encounter Care Teams Customs Broker Relationship Specialty Start Date End Date Chacorta Valenzuela MD [address] [place] [address] PCP - General Family Medicine 09/07/20 Jose E Rodrigues MD [address] [place] [address] Consulting Physician Urology 09/23/20 documented as of this encounter
--- OUTSIDE RECORDS SUMMARY | 2024-09-15 17:39 | XMS_ITS | Clinical Summary ---
Author Organization [facility] Address [address] [place] [address] Care Team Providers Care Director Hair Name Role Phone Chacorta Valenzuela MD Primary Care Provider +1- [phone] Allergies Active Allergy Reactions Criticality Noted Date Comments Clomiphene Rash Low 10/28/2020 Sulfa Antibiotics Rash Low 10/28/2020 Medications amLODIPine 5 MG tablet Take 5 mg by mouth daily. Active losartan 50 MG tablet Take 50 mg by mouth daily. Active fenofibrate 160 MG tablet Take 160 mg by mouth daily. Active meloxicam 15 MG tablet Take 15 mg by mouth daily. Stopped in August on 2020 Active ibandronate 150 MG tablet Take 150 mg by mouth every 30 (thirty) days. Active oxybutynin 5 MG tablet Take 5 mg by mouth 3 (three) times daily. Active traZODone 100 MG tablet Take 100 mg by mouth nightly at bedtime. Active traMADol 50 MG tablet 09/22/2020 Active Active Problems Problem Noted Date Diagnosed Date Kidney stone on left side 11/03/2020 Immunizations Immunization Administration Dates Next Due PFIZER COVID-19 (TOBAR CAP), MRNA, LNP-S, PF, 30 MCG/0.3 ML CARMINE-SUCROSE, IM 09/27/2021 PFIZER COVID-19 (ORIGINAL FO RMULATION, PURPLE CAP) mRNA, LNP-S, PF, 30 MCG/0.3 ML DOSE 01/12/2021 PFIZER COVID-19 BIVALENT (12 +) mRNA, LNP-S, PF, 30 MCG/0.3 ML DOSE 01/05/2022 Family History Medical History Relation Comments Cancer Brother 1 Cancer Brother 2 Cancer Brother 3 schledoderma Daughter Diabetes Father mesothelioma Father asbestos, weldin g Emphysema Mother Cancer Sister 1 Cancer Sister 2 No Known Problems Son Relation Status Comments Brother 1 Alive Brother 2 Alive Brother 3 Alive Daughter Alive Father Mother Sister 1 Alive Sister 2 Alive Son Alive Social History Tobacco Use Types Packs/Day Years Used Date Smoking Tobacco: Never Smokeless Tobacco: Never Alcohol Use Standard Drinks/Week Comments Never 0 (1 standard drink = 0.6 oz pur e alcohol) Comments No Sex and Gender Information Value Date Recorded Sex Assigned at Not on file Legal Sex Female 12:55 PM CDT Gender Identity Not on file Sexual Orientation Not on file Last Filed Vital Signs Vital Sign Reading Time Taken Comments Blood Pressure 152/79 11/03/2020 12:05 PM CDT Pulse 76 11/03/2020 12:05 PM CDT Temperature 36.2 C (97.2 F) 11/03/2020 12:05 PM CDT Respiratory Rate 18 11/03/2020 12:0 5 PM CDT Oxygen Saturation 99% 11/03/2020 12: 05 PM CDT Inhaled Oxygen Concentration - - Weight 84.8 kg (186 lb 15.2 oz) 11/03/2020 5:55 AM CDT Height 165.1 cm (5' 5) 11/03/2020 5:55 AM CDT Body Mass Index 31.11 11/03/2020 5:55 AM CDT Plan of Treatment Health Maintenance Due Date Last Done Comments Colorectal Cancer Screening Colonoscopy (10 Years) 1955 Hepatitis C 01/02/1974 DTaP, Tdap and Td Vaccines (1 - Tdap) 01/02/1975 Mammogram Screening 1996 Pneumococcal Vaccine: 50+ Years (1 of 1 - PCV) 01/02/2006 Zoster Vaccines (1 of 2) 01/02/2006 Annual Medicare Wellness Visit 01/02/2021 Dexa Scan (General) 01/02/2021 COVID-19 Vaccine ( season) 2023 01/05/2022, 09/27/2021, 01/12/2021, Additional history exists RSV Immunization or 60+ Years (1 - 1-dose 75+ series) 01/02/2031 Meningococcal B Vaccine Aged Out No l onger eligible based on patient's age to complete this topic Meningococcal Vaccine Aged Out No jocelyn allen eligible based on patient's age to complete this topic RSV Immunizations Under 20 Months Aged Out No longer eligible based on patient's age to complete this topic Medical Devices Implanted Type Area Trouble Locater Device Identifier Shelf Expiration Date Model / Serial / Lot Percuflex Plus Ureteral Stent 6f X 24cm Implanted:Qty: 1 on 11/03/2020 by Jose E Rodrigues MD at [facility] Stent Left: Ureter [id number] 06/28/2023 [id number] / / [id number] Insurance [employer] Care Teams Director Hair Relationship Specialty Start Date End Date Chacorta Valenzuela MD [address] [place] [address] PCP - General FAMILY PRACTICE 11/01/20
--- OUTSIDE RECORDS SUMMARY | 2024-09-15 17:39 | XMS_ITS | Clinical Summary ---
Author Organization [facility] Address [address] [place] [address] Care Team Providers Care Platform Operations Director Name Role Phone Unavailable Primary Care Provider Unavailabl e Source Comments [facility],non-owned Affiliates and Associated Physician Practices is amultiple site organization consisting of ambulatory clinics and hospital sitesin [place], [place], [place] and [place]. This disclosure is being madepursuant to the Care Everywhere program and may not contain all information available regarding this patient. Last updated 17.[facility] Social History Tobacco Use Types Packs/Day Years Used Date Smoking Tobacco: Never Assessed Comments Unknown Sex and Gender Information Value Date Recorded Sex Assigned at Not on file Legal Sex Female 11:40 AM CDT Gender Identity Not on file Sexual Orientation Not on file Plan of Treatment Health Maintenance Due Date Last Done Comments BONE DENSITY TESTING 1955 COLOGUARD (AGES 45-75) - COL ON CA SCREENING 1955 COLON MONITORING 1955 COLONOSCOPY - COLON CA SCREENING 1956 CT COLONOGRAPHY - COLON CA SCREENING 1955 Colorectal Cancer Screening 1955 FIT - COLON CA SCREENING 1955 FLEX SIG - COLON CA SCREENING 1955 LIPID TESTING 1955 MAMMOGRAM 1955 MEDICARE AWV 12 MONTHS 1955 HEPATITIS C SCREENING 12/29/1973 DTAP/TDAP/TD VACCINES (1 - Tdap) 01/02/1975 PNEUMOCOCCAL VACCINE 50+ (1 of 1 - PCV) 01/02/2006 ZOSTER VACCINE (1 of 2) 01/02/2006 COVID-19 VACCINE ( - 2023-2 5 season) 2023 DEPRESSION SCREENING 02/20/2024 INFLUENZA VACCINE (#1) 2024 Respiratory Syncytial Virus (RSV) Vaccine Pt: or over 60 yrs (1 - 1-dose 75+ series) 01/02/2031 HEPATITIS B VACCINE Aged Out No longe r eligible based on patient's age to complete this topic HIB VACCINE Aged Out No longer eligi ble based on patient's age to complete this topic HPV VACCINE Aged Out No longer eligi ble based on patient's age to complete this topic MENINGOCOCCAL (Group B) VACC INE SHARED DECISION-MAKING Aged Out No longer eligibl e based on patient's age to complete this topic MENINGOCOCCAL GROUPS A/C/Y/W VACCINE Aged Out No longer eligible b ased on patient's age to complete this topic Insurance [facility] MEDICARE
--- OUTSIDE RECORDS SUMMARY | 2024-09-15 17:39 | XMS_ITS | Encounter Summary ---
Author Organization [facility] Address [address] [place] [address] Care Team Providers Care Analytical Research Program Manager Name Role Phone Unavailable Primary Care Provider Unavailabl e Encounter Details Date Type Department Care Team (Late st Contact Info) Description 12/20/[address] [facility] - DermPath Lab [address] [place] [id number] Marcin Marie MD [facility] DERMATOLOGY [address] [place] [id number] Social History Tobacco Use Types Packs/Day Years [...] Procedure Name Priority Date/Time Associated Diagnosis Comments DERMATOPATHOLOGY Routine 12/19/2023 12:0 0 AM CDT documented in this encounter Results * DERMATOPATHOLOGY (12/19/2023 12:00 AM CDT) Case Report Dermatopathology Report Case: [id number] Authorizing Provider: Marcin Marie MD Collected: 12/19/2023 12:00 AM Ordering Location: [facility] Physician [facility] - Received: 12/20/2023 11:57 AM DermPath Lab Pathologist: Susie Crowley MD Specimen: Skin, left proximal thigh 5:19 PM STATEMENT CLERKS MANAGER DERMATOPATHOLOGY LABORATORY Final Diagnosis Specimen A. SKIN, left proximal thigh: SUPERFICIAL AND DEEP PERIVASCULAR LYMPHOCYTIC INFILTRATE WITH EOSINOPHILS (L27.0) (see microscopic description and comment) (see direct immunofluorescence results [id number]) 4 5:19 PM [facility] DERMATOPATHOLOGY LABORATORY at [address]19 STATEMENT CLERKS MANAGER Clinical History Acute cutaneous lupus erythematosus 4 5:19 PM [facility] DERMATOPATHOLOGY LABORATORY Gross Description Specimen A: Received is one formalin filled container labeled with the patient's name and designated left proximal thigh. The specimen consists of a punch biopsy measuring 4x4x3 mm. Jar 0. 4 5:19 PM [facility] DERMATOPATHOLOGY LABORATORY Microscopic Description Specimen A. SKIN, left proximal thigh: Sections show a superficial and deep perivascular and interstitial infiltrate including lymphocytes and eosinophils. There is focal spongiosis and vacuolar interface changes. See direct immunofluorescence results. COMMENT: These histological findings are often seen in hypersensitivity reactions to an ingested allergen. 5:19 PM [facility] DERMATOPATHOLOGY LABORATORY Disclaimer An external and internal positive and negative controls are appropriate for the histochemical, immunohistochemical and immunofluorescence stain(s) in this case (if any), except where stated explicitly. The performance characteristics of the stain(s) cited in this report were developed and its performance characteristic determined by the Dermatopathology Laboratory at [facility], directed by Dr. Humberto Crowley. These tests need not be, and therefore are not, approved by the [place] Food and Drug Administration. The tests are used for clinical purposes. Billing Codes Specimen Charges Stain Charges 63724 1 4 5:19 PM [facility] DERMATOPATHOLOGY LABORATORY Embedded Images 4 5:19 PM [facility] DERMATOPATHOLOGY LABORATORY Pathology/Cytolog y TISSUE SPECIMEN FROM SKIN / Unknown 12/19/2023 12/20/2023 11:57 AM CDT us Marcin Marie MD LAB - PATHOLOGY/CYTOLOGY GOS[facility]A Final Result DERMATOPATHOLOGY LABORATORY [facility] - Department of Dermatology [address], [address] [phone] documented in this encounter Visit Diagnoses Not on filedocumented in this encounter
--- OUTSIDE RECORDS SUMMARY | 2024-09-15 17:39 | XMS_ITS | Clinical Summary ---
Author Organization [facility] Address [address] [place] [address] Care Team Providers Care Supervisor Dog License Officer Name Role Phone Chacorta Valenzuela MD Primary Care Prov ider Jose E Rodrigues MD Unavailable [phone] Allergies Active Allergy Reactions Criticality Noted Date Comments Clomiphene Citrate Hives Medium 09/07/2020 Medications amLODIPine (NORVASC) 5 mg tablet Take 5 mg by mouth daily Active fenofibrate (TRIGLIDE) 160 mg tablet Take 160 mg by mouth daily with dinner Active losartan (COZAAR) 50 mg tablet Take 50 mg by mouth daily with dinner Active ibandronate (BONIVA) 150 mg tablet Take 150 mg by mouth every 30 (thirty) days Take in AM with glass of water prior to food, don't lie down for 30 minutes. Active traZODone (DESYREL) 100 mg tablet Take 100 mg by mouth nightly Active Active Problems Problem Noted Date Diagnosed Date Nephrolithiasis 09/21/2020 Staghorn renal calculus 07/28/2020 Overview (07/28/2020): Added automatically from request for surgery [id number] Surgical History Surgery Date Site/Laterality Comments HYSTERECTOMY DILATION AND CURETTAGE OF UTERUS SECTION x2 NEPHROURETERAL STENT PLACEMENT NEW ACCESS LEFT Left URETERAL STENT PLACEMENT VIA EXISTING TRACT LEFT 021 Left Medical History Medical History Date Comments Staghorn renal calculus Migraines HTN (hypertension) Obesity BMI 32 BPV (benign positional vertigo) Social History Tobacco Use Types Packs/Day Years Used Date Smoking Tobacco: Never Smokeless Tobacco: Never AUDIT-C Answer Date Recorded Q1: How often do you have a drink containing alc ohol? Never 09/21/2020 Average Number of Drinks Not on file 021 Q3: How often do you have si x or more drinks on one occasion? 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 Gender Identity Female 09/14/2020 6:35 AM CDT Sexual Orientation Straight 09/14/2020 6: 35 AM CDT Obstetrics History Last Filed Vital Signs Vital Sign Reading Time Taken Comments Blood Pressure 151/76 09/23/2020 8:22 AM CDT Pulse 96 09/23/2020 8:22 AM CDT Temperature 36.8 C (98.2 F) 09/23/2020 8:22 AM CDT Respiratory Rate 18 09/23/2020 8:22 AM CDT Oxygen Saturation 98% 09/23/2020 8:22 AM CDT Inhaled Oxygen Concentration - - Weight 85 kg (187 lb 6.3 oz) 09/21/2020 8:04 PM CDT Height 165.1 cm (5' 5) 09/21/2020 8:04 PM CDT Body Mass Index 31.18 09/21/2020 8:04 PM CDT Plan of Treatment Not on file Medical Devices Implanted Type Area Burlapper Device Identifier Shelf Expiration Date Model / Serial / Lot OX [employer] [id number] Amplatz 8.5fr 24cm 6 Sideport Introducer Catheter String - [id number] Implanted:Qty: 1 on 09/22/2020 at [facility] [employer] 09/29/2022 [id number] / [id number] Insurance BL CHOICE PRF PPO [place] Advance Directives For more information, please contact: [phone] Documents on File Type Date Recorded Patient Folder Inspector Expl anation Advance Directives and Livin g Will 09/07/2020 11:04 AM * Full Code (Latest Code Status on File) Date Activated Date Inactivated Comments 09/21/2020 8:02 PM 09/23/2020 3:00 PM Care Teams Supervisor Dog License Officer Relationship Specialty Start Date End Date Chacorta Valenzuela MD [address] [place] [address] PCP - General Family Medicine 09/07/20 Jose E Rodrigues MD [address] [place] [address] Consulting Physician Urology 09/23/20
--- OUTSIDE RECORDS SUMMARY | 2024-09-15 17:39 | XMS_ITS | Continuity of Care Document ---
Author Organization [facility] Address [address] [place] [address] Phone Care Team Providers Care Perianesthesia Nurse Name Role Phone Dinorah Figueroa Unavailable Unavailable Advance Directives Directive Yes / No Effective Date File Name No Information Encounters Encounter Description Practice Location Reason(s) For Visit Diagnoses Date Provider Providers Copied on Encounter [facility], [address], [place], [place], [id number], [place] tel:[phone] [facility] No Information 0-200 0 Carolina Copeland. [address] , [address], [place], [address], [place]. tel:[phone] Family History Family Member Type Diagnosis Age At Onset No Information Payers Payer name Insurance type Covered constitution party ID Authoriza tion(s) [employer] SOI CI [id number] Social History Type Description Quantity Date Captured Comments Sex Female Smoking Status No Information Chief Complaint And Reason For Visit No Information Reason For Referral Reason For Referral No Information History Of Present Illness Encounter Date Complaint History Of Prese nt Illness No Information Functional Status Date Functional Assessmen t No Information Instructions Date Instruction Additional Infor mation No Information Assessments Type Assessment Date No Information Patient Care Teams Name Effective Dates (start - stop) Status Members No Information
--- OUTSIDE RECORDS SUMMARY | 2024-09-15 17:39 | XMS_ITS ---
Author Organization [facility] ([address]) Address [address] [place] [address] Care Team Providers Care Assorter Laundry Name Role Phone Chacorta Carrasco Primary Care Provider Unavail able Marleen Irizarry Unavailable [phone] Marcin Marie Unavailable Unavailable REASON FOR VISIT Rash follow-up Encounters Encounter Location Date Provider Diagnosis [facility] [address] [place] [address] 02/28/2024 Marleen Irizarry Plan Of Treatment No Information Progress Notes * Gibson ARMSTRONGOB:1954 (69 yo F)Acc No.[id number]:02/28/2024 Progress Notes Patient: Qi CARLIN Provider: Philipp Irizarry PA-C :1955 A ge:69 Y S ex:Female Date:02/28/2024 Address:[address] [facility] [address] Pcp:Chacorta Carrasco Subjective: * Chief Complaints: * 1 . Rash follow-up. * Medical History: Objective: * Vitals: Assessment: Plan: * Treatment: * Billing Information: * Visit Code: * Procedure Codes: * Electronic signature of Angel Irizarry PA-C, RUSTS on 09/15/2024 at 05:39 PM CDT Sign off status: Pending * Provider: Philipp Irizarry PA-C Date: 0 02/28/2024 Generated for Martina thorne/Lorenzo/Andrey on: 0 09/15/2024 05:39 PM CDT
--- OUTSIDE RECORDS SUMMARY | 2024-09-15 17:39 | XMS_ITS | Patient Health Record ---
Author Organization [facility] ([address]) Address [address] [place] [address] Care Team Providers Care Solar Sales Manager Name Role Phone Chacorta Carrasco Primary Care Provider Unavail able Marleen Irizarry Unavailable [phone] Marcin Marie Unavailable Unavailable Allergies Allergen (clinical drug ingredient) Drug/Non Drug Allergy documented on EMR Reaction Allergy Type Onset Date Status clomiphene Clomid (uncoded) Rash Allergy Ac tive Substance with sulfonamide structure and antibacterial mechanism of action (substance) Sulfa (uncoded) Rash Allergy Active Reason For Referral Referring Provider First Name Chacorta Referring Provider Last Name Danilo Referred Organization [facility] Referred Provider Marleen Irizarry Referred Address [address] [place] [id number], Referred Provider Specialty Allergy/Immu nology Referral Priority Routine Medications Medication SIG (Take, Route, Frequency, Duration) Notes Start Date End Date Status Meloxicam 15 MG 1 tablet Orally Once a day; Duration: 90 days Active amLODIPine Besylate 5 MG 1 tablet Orally Once a day Active Losartan Potassium 50 MG Oral; Duration: 90 Days Active Fenofibrate 50 MG 2 tablet Orally Once a day; Duration: 90 days Active traZODone HCl 100 MG Oral; Duration: 90 Days Active Immunizations Vaccine Route Administration Date Status Comme nts FluZone Quadrivalent Unknown 11/01/2023 Administered Po rtal Information Social History Tobacco Use: Social History Observation Description Date Details (start date - stop date) Never Smoker NA - NA Tobacco Control (Standard) Question Answer Notes Tobacco use: Nonsmoker AUDIT-C (Standard) Question Answer Notes Did you have a drink containing alcohol in the p ast year? No Points 0 Interpretation Negative Problems Problem Type SNOMED Code ICD Code Onset Dates Problem Status W/U Status Risk Notes Problem Anxiety disorder (129409548) Anxiety disorder, unspecified (F41.9) Active confirmed Problem Chronic allergic conjunctivitis (69028736) Other chronic allergic conjunctivitis (H10.45) Active confirmed Problem Allergic rhinitis caused by pollen (disorder) (83889667) Allergic rhinitis due to pollen (J30.1) Active confirmed Problem Allergic rhinitis (94747180) Other allergic rhinitis (J30.89) Active confirmed Problem Chronic rhinitis (80515821) Chronic rhinitis (J31.0) Active confirmed Problem Uncomplicated mild persistent asthma (169790448) Mild persistent asthma, uncomplicated (J45.30) Active confirmed Problem Uncomplicated moderate persistent asthma (020068418) Moderate persistent asthma, uncomplicated (J45.40) Active confirmed Problem Uncomplicated severe persistent asthma (022516879) Severe persistent asthma, uncomplicated (J45.50) Active confirmed Problem Allergic rhinitis caused by animal hair and dander (590686666178508) Allergic rhinitis due to animal (cat) (dog) hair and dander (J30.81) Active confirmed Vital Signs Respiratory Rate 17 /min 04/10/2024 Oximetry 99 % 04/10/2024 Blood pressure diastolic 85 mm Hg 04/10/2024 Height 65 in 04/10/2024 Blood pressure systolic 136 mm Hg 04/10/2024 Weight 192.4 lbs 04/10/2024 BMI 32.01 kg/m2 04/10/2024 Encounters Encounter Location Date Provider Diagnosis [facility] [address] [place] [address] 01/24/2024 Marleen Aiken [address] [place] [address] 01/24/2024 Marleen Aiken [address] [place] [address] 01/12/2024 Marleen Mace [facility] [address] [place] [address] 04/05/2024 Marleen Mace [facility] [place] [address] 04/05/2024 Marleen Irizarry [facility] [address] [place] [address] 01/24/2024 Marleen Irizarry Rash and other nonspecific skin eruption R21 and Pruritus, unspecified L29.9 [facility] [address] [place] [address] 04/10/2024 Marleen Irizarry Rash and other nonspecific skin eruption R21 and Pruritus, unspecified L29.9 Assessments Encounter Date Diagnosis (ICD Code) Assessment Notes Treatment Notes Treatment Clinical Notes Section Notes 01/24/2024 Rash and other nonspecific skin eruption (ICD-10 - R21) Qi is heres today for evaluation of rash. Has had 3-4 episodes of rash on backs of arms and on tops of legs. She describes it as an itchy purple raised rash made up of bumps. Lasts for days to weeks. Worsened by heat, notable itchy after a shower and when she puts her laptop on her legs. Responds well to topical steroid -Unfortnately she does not have any pictures nor is the rash present today -Dermatology notes and biopsy not available for review but requested. Their office is also closed right now to discuss. I will reach out to Veronika to coordinate care. Her description is inconsistent with IgE mediated food allergy. Description is atypical for urticaria, eczema, and drug allergy but I need to reivew records and see rash. -She is also on Trazadone which needs to be held for testing for several weeks which she cannot do. -Will return for f/u in 1 month once I review records and biopsy 01/24/2024 Pruritus, unspecified (ICD-10 - L29.9) See above 04/10/2024 Rash and other nonspecific skin eruption (ICD-10 - R21) Qi was seen last for evaluation of rash. Has had 3-4 episodes of rash on backs of arms and on tops of legs. She describes it as an itchy raised rash made up of bumps that turn into ring, almost like ringworm. Lasts for days to weeks. Worsened by heat, notable itchy after a shower and when she puts her laptop on her legs. Responds well to topical steroid -Last visit she did not have any pictures nor is the rash present today. Fortunatley the rash returned and she has a round raised lesions on her R forearm. Biopsy reviewed showing perivascular and lymphocytic infiltrate with scattered eosinphils. This is often associated with inflammation, allergic reactions, and autoimmune disorders. There are other causes. The comment says possible ingested allergen. Could be a drug in which stopping meds with her PCP is the only test we have. Patch testing can be done for some meds, topicals, and products. I dont believe in unnecessary food testing given the high false positive and Qi agrees that diet is very routine. She also has never had anaphylaxis. So at this point Im happy to do chemical testing but I would hate to stop her Trazadone for environmental or food testing. -Possible ddx includes numular eczema vs. granuloma annulare -Recommend resuming TAC BID with unscented dye free products and returning to Derm. Contact office if she would like to pursue patch testing 04/10/2024 Pruritus, unspecified (ICD-10 - L29.9) See above 01/24/2024 Other 04/10/2024 Other Plan Of Treatment No Information Insurance Providers Payer Name Payer Address Payer Phone Subscriber Number Group Number Insured Name Patient Relationship to Insured Coverage Start Date Coverage End Date [employer] [address] [address] [place] [address] [id number] Qi Haque Self - patient is the insured 1 Medical (General) History Medical History History ICD Code Essential (primary) hypertension I10 Arthritis due to other bacteria, 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
--- OUTSIDE RECORDS SUMMARY | 2024-09-15 17:39 | XMS_ITS | Referral Summary ---
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 Gender Identity Female 09/14/2020 6:35 AM CDT Sexual Orientation Straight 09/14/2020 6: 35 AM CDT Last Filed Vital Signs Vital Sign Reading [...] on file Medical Devices Implanted Type Area Manager Combination Device Identifier Shelf Expiration Date Model / Serial / Lot [employer] [id number] Amplatz 8.5fr 24cm 6 Sideport Introducer Catheter String - [id number] Implanted:Qty: 1 on 09/22/2020 at [facility] [employer] 09/29/2022 [id number] / / [id number] Insurance BL CHOICE PRF PPO [place] Advance Directives For more information, please contact: [phone] Documents on File Type Date Recorded Patient Electronic Systems Security Assessment Expl anation Advance Directives and Livin g Will 09/07/2020 11:04 AM * Full Code (Latest Code Status on File) Date Activated Date Inactivated Comments 09/21/2020 8:02 PM 09/23/2020 3:00 PM Care Teams Dinkey Brakeman Relationship Specialty Start Date End Date Chacorta Valenzuela MD [address] [place] [address] PCP - General Family Medicine 09/07/20 Jose E Rodrigues MD [address] [place] [address] Consulting Physician Urology 09/23/20
--- OUTSIDE RECORDS SUMMARY | 2024-09-15 17:39 | XMS_ITS | Encounter Summary ---
Author Organization [facility] Address [address] [place] [address] Care Team Providers Care Knife Edger Name Role Phone Chacorta Valenzuela MD Primary Care Prov ider Jose E Rodrigues MD Unavailable [phone]- [phone] Encounter Details Date Type Department Care Team (Late st Contact Info) Description 08/18/2020 Telephone [facility] - Interventional Radiology [facility] [place] [address] Marycruz Conte RN Social History Tobacco Use Types Packs/Day Years Used Date Smoking Tobacco: Never Assessed Comments Unknown Sex and Gender Information Value Date Recorded Sex Assigned at Not on file 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
[2024-09-15 18:18] VITALS: BP 133/58; PULSE 125; RESP 24; TEMP 37.1; O2SAT 97
--- NOTE | 2024-09-15 18:35 | ECG_ITS ---
Test Date: 2024-09-15 20:55:34 Measurements Intervals [facility] Rate: 102 P: 54 NC: 176 QRS: 19 QRSD: 144 T: 0 QT: 335 QTc: 438 Interpretive Statements SINUS TACHYCARDIA INTRAVENTRICULAR CONDUCTION DELAY Electronically Signed On 09-16-2024 17:17:33 CDT by Juan Feliciano D.O
--- NOTE | 2024-09-15 18:36 | ED_ITS ---
HPI - SOB/Dyspnea General Chief Complaint: Shortness of Breath/Dyspnea <Ama Morgan, LEATHER PRODUCTION MACHINE OPERATOR - Last Filed: 09/15/24 18:38> Stated Complaint: sob, carballo since <Ama Morgan LEATHER PRODUCTION MACHINE OPERATOR - Last Filed: 09/15/24 18:38> Time Seen by Provider: 09/15/24 18:15 <Ama Morgan LEATHER PRODUCTION MACHINE OPERATOR - Last Filed: 09/15/24 18:38> Focused HPI: Patient is a 69-year-old female who presents ER with concern for sepsis. She reports she started having symptoms of a UTI on Sunday, 5 days ago. Patient reports she went to urgent care earlier today and they told her she had a UTI. She reports they advised her to come to the ER for further evaluation. She endorses a history of high blood pressure. Patient endorses recent fevers, shortness of breath, and lower abdominal pain. She denies any other pertinent medical history. GENERAL: Ill-appearing, well-nourished, and in mild distress. + diaphorectic HEAD: Normocephalic, atraumatic. CHEST: Clear to auscultation. ?No respiratory distress. HEART: Tachycardia NEURO: ?Alert and oriented x3. Patient screened in triage and initial orders placed.? ?Additional care and disposition to be based upon?diagnostic testing and treatment. <Ama Morgan, LEATHER PRODUCTION MACHINE OPERATOR - Last Filed: 09/15/24 18:38> Focused HPI: Patient is a 69-year-old female who presents ER with concern for sepsis. She reports she started having symptoms of a UTI on Sunday, 5 days ago. Patient reports she went to urgent care earlier today and they told her she had a UTI. She reports they advised her to come to the ER for further evaluation. She endorses a history of high blood pressure. Patient endorses recent fevers, shortness of breath, and lower abdominal pain. She denies any other pertinent medical history. GENERAL: Ill-appearing, well-nourished, and in no acute distress HEAD: Normocephalic, atraumatic. CHEST: Clear to auscultation. ?No respiratory distress. HEART: Tachycardia NEURO: ?Alert and oriented x3. Patient screened in triage and initial orders placed.? ?Additional care and disposition to be based upon?diagnostic testing and treatment. <Malina Nails PA-C - Last Filed: 09/16/24 03:01> History of Present Illness HPI Narrative: per HPI <Camryn Walsh MD - Last Filed: 09/16/24 03:29> Related Data Home Medications: Home Medications ?Medication ?Instructions ?Recorded ?Confirmed ?Last Taken ?Type apple cider vinegar 600 mg capsule mg PO 04/09/23 07/29/24 Unknown History <Ama Morgan APRN - Last Filed: 09/15/24 18:38> Allergies/Adverse Reactions: Allergies Allergy/AdvReac Type Severity Reaction Status Date / Time clomiphene (From Clomid) Allergy Mild Rash Verified 09/15/24 20:50 Sulfa (Sulfonamide Allergy Mild Unknown Verified 09/15/24 20:50 Antibiotics) <Ama Morgan APRN - Last Filed: 09/15/24 18:38> Review of Systems 2 Review of Systems: All systems reviewed & are unremarkable except as noted in HPI and below <Malina Nails PA-C - Last Filed: 09/16/24 03:01> [facility] Past Medical History Medical History: Medical History (Updated 09/16/24 @ 03:01 by Malina Nails PA-C) BMI 32.0-32.9,adult Trochanteric bursitis Left hip pain Chronic right hip pain History of renal calculi (10/2020) Osteopenia Pure hyperglyceridemia Migraine Recurrent cystitis Obstruction of left ureteropelvic junction (UPJ) due to stone Occult blood in stools SLE (systemic lupus erythematosus) Hypertension <Ama Morgan APRN - Last Filed: 09/15/24 18:38> Surgical History Surgical History: Surgical History History of lithotripsy History of X2 History of hysterectomy with bilateral oophorectomy <Ama Morgan APRN - Last Filed: 09/15/24 18:38> Family History Family History: Family History (Updated 06/27/24 @ 09:52 by DINORA Lezama) Sibling Breast cancer Bladder cancer Father Carcinoma of colon Diabetes mellitus Hypertension Mother Cerebrovascular accident Family history of arthritis <Ama Hoang Morgan, LEATHER PRODUCTION MACHINE OPERATOR - Last Filed: 09/15/24 18:38> Social History Social History: Social History (Updated 06/27/24 @ 09:53 by Katie Machuca [facility]) Smoking status: Never smoker Second hand tobacco smoke exposure: Yes Alcohol intake: never Substance use: never Substance use type: does not use Do You Feel Safe in your Home?: Yes Lack of Transportation: No Lack of Food: Never True Current Housing: I Have Housing Concerned About Future Housing: No Difficulty Paying Gas/Electric Bills: No Difficulty Paying for Meds: No Currently Unemployed: No Education: Associate Degree Difficulty w/ Childcare or Family Care: No Living arrangements: with family Occupation/Education: retired 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 HEAD: Normocephalic, atraumatic. EYES: EOMI. ENT: Nares clear, no rhinorrhea or epistaxis. Mucous membranes moist. Oropharynx without tonsillar hypertrophy exudate or other lesions. CHEST: Clear to auscultation. No respiratory distress. No wheezes rales or rhonchi HEART: Regular rate and rhythm. No murmur heard. Normal peripheral pulses. ABDOMEN: Soft, nontender, nondistended, normal active bowel sounds. EXTREMITIES: Normal range of motion. No edema. SKIN: Warm, dry, no rash. NEURO: No focal deficits. Alert and oriented x3. PSYCH: Normal mood and affect <Malina Nails PA-C - Last Filed: 09/16/24 03:01> Course Course Emergency Course: patient updated on her workup and need for admission <DIANA Duvall - Last Filed: 09/16/24 03:01> REGRADER/PA Physician Supervision I agree with midlevel documentation; I performed the medical decision making component of this evaluation. <Camryn Walsh MD - Last Filed: 09/16/24 03:29> Consultations Consultation #1: Spoke with hospitalist about patient and workup who accepts admission < Malina Nails PA-C - Last Filed: 09/16/24 03:01> Date: 09/16/24 <Malina Nails PA-C - Last Filed: 09/16/24 03:01> Consultation #2: Spoke with Dr. Webb who will consult. Patient will remain NPO <Malina Nails PA-C - Last Filed: 09/16/24 03:01> Date: 09/16/24 <Malina Nails PA-C - Last Filed: 09/16/24 03:01> Vital Signs Vital signs: Vital Signs Temperature 98.8 F 09/15/24 18:18 Pulse Rate 125 H 09/15/24 18:18 Respiratory Rate 24 H 09/15/24 18:18 Blood Pressure 133/58 L 09/15/24 18:18 Pulse Oximetry 97 09/15/24 18:18 Oxygen Delivery Room Air 09/15/24 18:18 Temperature 97.8 F 09/15/24 23:52 Pulse Rate 86 09/15/24 23:52 Respiratory Rate 16 09/15/24 23:52 Blood Pressure 141/64 H 09/15/24 23:52 Pulse Oximetry 99 09/15/24 23:52 Oxygen Delivery Room Air 09/15/24 20:48 <Ama Morgan APRN - Last Filed: 09/15/24 18:38> Vital Signs Temperature 98.8 F 09/15/24 18:18 Pulse Rate 125 H 09/15/24 18:18 Respiratory Rate 24 H 09/15/24 18:18 Blood Pressure 133/58 L 09/15/24 18:18 Pulse Oximetry 97 09/15/24 18:18 Oxygen Delivery Room Air 09/15/24 18:18 Temperature 97.8 F 09/15/24 23:52 Pulse Rate 86 09/15/24 23:52 Respiratory Rate 16 09/15/24 23:52 Blood Pressure 141/64 H 09/15/24 23:52 Pulse Oximetry 99 09/15/24 23:52 Oxygen Delivery Room Air 09/15/24 20:48 <Malina Nails PA-C - Last Filed: 09/16/24 03:01> Vital Signs Temperature 98.8 F 09/15/24 18:18 Pulse Rate 125 H 09/15/24 18:18 Respiratory Rate 24 H 09/15/24 18:18 Blood Pressure 133/58 L 09/15/24 18:18 Pulse Oximetry 97 09/15/24 18:18 Oxygen Delivery Room Air 09/15/24 18:18 Temperature 97.8 F 09/15/24 23:52 Pulse Rate 86 09/15/24 23:52 Respiratory Rate 16 09/15/24 23:52 Blood Pressure 141/64 H 09/15/24 23:52 Pulse Oximetry 99 09/15/24 23:52 Oxygen Delivery Room Air 09/15/24 20:48 <Camryn Walsh MD - Last Filed: 09/16/24 03:29> MDM - SOB/Dyspnea MDM Narrative Medical decision making narrative: Patient presents to the emergency department for shortness of breath, cough, dysuria. She is afebrile and nontoxic appearing. Tachycardic upon arrival, this normalized with IV fluids. Her blood pressure is stable. CBC with leukocytosis to 38.4. Shows normocytic anemia with hemoglobin of 10. Metabolic panel with evidence of acute kidney injury. Lactic acid is not elevated. Urine with 3+ leuk esterase, greater than 100 white blood cells, also many squamous epithelial cells. This will be sent for culture. Blood cultures obtained. Patient was given dose of IV Rocephin at the urgent care prior to arrival. Patient was hydrated with IV fluids in the ER. CT chest/ abdomen / pelvis obtained for further evaluation. Shows a 5 mm mid right ureteral stone. Spoke with Dr. Webb who will consult. Patient will remain NPO. Spoke with hospitalist about patient and workup who accepts admission <DIANA Duvall - Last Filed: 09/16/24 03:01> Differential Diagnosis Differential diagnosis: Likely community acquired pneumonia and other (UTI, Pyelonephritis, kidney stone) <Malina Nails PA-C - Last Filed: 09/16/24 03:01> Lab Data Attestation: I reviewed the patient's lab results. <Malina Nails PA-C - Last Filed: 09/16/24 03:01> Result diagrams: 09/15/24 20:55 09/15/24 20:55 <Ama Morgan, LEATHER PRODUCTION MACHINE OPERATOR - Last Filed: 09/15/24 18:38> Labs: Lab Results 09/15/24 09/15/24 09/15/24 Range/Units 20:55 22:45 23:39 WBC 38.4 H (4.5-10.0) K/mm3 RBC 3.53 L (4.2-5.4) M/mm3 Hgb 10.0 L (12.0-15.0) g/dL Hct 31.0 L (37.0-47.0) % MCV 87.8 (80-100) fl MCH 28.3 (26-34) pg MCHC 32.3 (32-36) g/dl RDW 14.6 H (11.5-14.5) % Plt Count 327 (150-375) k/mm3 MPV 9.8 (7.4-10.4) fl Immature Gran % (Auto) 1.7 H (0-0.5) % Neut % (Auto) 92.3 H (45.5-73.1) % Lymph % (Auto) 1.7 L (18.3-44.2) % [place] % (Auto) 3.7 (2.6-8.5) % Eos % (Auto) 0.2 (0-4.4) % Baso % (Auto) 0.4 (0.2-1.2) % Lymph # (Auto) 0.64 L (0.9-3.2) K/mm3 [place] # (Auto) 1.4 H (0.1-0.6) K/mm3 Eos # (Auto) 0.1 (0-0.3) K/mm3 Baso # (Auto) 0.2 H (0.0-0.1) K/mm3 Abs Immat Gran (auto) 0.65 H (0.00-0.031) K/mm3 Absolute Neuts (auto) 35.5 H (1.3-6.7) K/mm3 Absolute Nucleated RBC 0.000 (0.0-0.012) K/mm3 Nucleated RBC % 0.0 (0.0-0.2) % PT 16.5 H (11.1-14.7) Seconds INR 1.3 APTT 34.3 (22.3-36.8) Seconds Sodium 136 L (137-145) mmol/L Potassium 3.9 (3.4-5.0) mmol/L Chloride 106 (98-107) mmol/L Carbon Dioxide 18 L (22-30) mmol/L Anion Gap 12 (4-12) mmol/L BUN 29 H (7-17) mg/dL Creatinine 2.65 H (0.7-1.0) mg/dL Estim Creat Clear Calc 20 ml/min Estimated GFR 18 L (59 - ) Glucose 141 H (65-110) mg/dL Lactic Acid 1.5 (0.7-2.0) mmol/L Calcium 9.7 (8.4-10.2) mg/dL Total Bilirubin 1.0 (0.2-1.3) mg/dL AST 29 (14-36) U/L ALT 16 (6-35) U/L Alkaline Phosphatase 65 (38-126) U/L Troponin I 0.197 H* (0.000-0.034) ng/mL C-Reactive Protein 17.8 H (<1.0) mg/dL Total Protein 7.0 (6.3-8.2) g/dL Albumin 3.5 (3.5-5.1) g/dL Urine Color Dark yellow (Yellow) Urine Appearance Turbid H (Clear) Urine pH 5.0 (5.0-9.0) Ur Specific [place] 1.019 (1.001-1.035) Urine Protein 3+ H (Negative) mg/dL Urine Glucose (UA) Negative (Negative) mg/dL Urine Ketones Trace H (Negative) mg/dL Ur Blood (Man) 3+ H (Negative) Urine Nitrate Negative (Negative) Urine Bilirubin 2+ H (Negative) Urine Urobilinogen 1.0 (<2.0) mg/dL Add Ur Microanalysis Reviewed Leukocyte Esterase Rfl 3+ H (Negative) SUZETTE/UL Urine RBC >100 H (0-2) /hpf Urine WBC >100 H (0-3) /hpf Urine WBC Clumps Present H (None) /HPF Ur Squamous Epith Cells Many H (Few) /hpf Urine Bacteria Rare /hpf Urine Casts >20 Influenza A (RT-PCR) Negative (Negative) Influenza B (RT-PCR) Negative (Negative) RSV (RT-PCR) Negative (Negative) SARS-CoV-2 RNA (RT-PCR) Negative (Negative) 09/15/24 Range/Units 23:57 WBC (4.5-10.0) K/mm3 RBC (4.2-5.4) M/mm3 Hgb (12.0-15.0) g/dL Hct (37.0-47.0) % MCV (80-100) fl MCH (26-34) pg MCHC (32-36) g/dl RDW (11.5-14.5) % Plt Count (150-375) k/mm3 MPV (7.4-10.4) fl Immature Gran % (Auto) (0-0.5) % Neut % (Auto) (45.5-73.1) % Lymph % (Auto) (18.3-44.2) % [place] % (Auto) (2.6-8.5) % Eos % (Auto) (0-4.4) % Baso % (Auto) (0.2-1.2) % Lymph # (Auto) (0.9-3.2) K/mm3 [place] # (Auto) (0.1-0.6) K/mm3 Eos # (Auto) (0-0.3) K/mm3 Baso # (Auto) (0.0-0.1) K/mm3 Abs Immat Gran (auto) (0.00-0.031) K/mm3 Absolute Neuts (auto) (1.3-6.7) K/mm3 Absolute Nucleated RBC (0.0-0.012) K/mm3 Nucleated RBC % (0.0-0.2) % PT (11.1-14.7) Seconds INR APTT (22.3-36.8) Seconds Sodium (137-145) mmol/L Potassium (3.4-5.0) mmol/L Chloride (98-107) mmol/L Carbon Dioxide (22-30) mmol/L Anion Gap (4-12) mmol/L BUN (7-17) mg/dL Creatinine (0.7-1.0) mg/dL Estim Creat Clear Calc ml/min Estimated GFR (59 - ) Glucose (65-110) mg/dL Lactic Acid (0.7-2.0) mmol/L Calcium (8.4-10.2) mg/dL Total Bilirubin (0.2-1.3) mg/dL AST (14-36) U/L ALT (6-35) U/L Alkaline Phosphatase (38-126) U/L Troponin I 0.122 H* D (0.000-0.034) ng/mL C-Reactive Protein (<1.0) mg/dL Total Protein (6.3-8.2) g/dL Albumin (3.5-5.1) g/dL Urine Color (Yellow) Urine Appearance (Clear) Urine pH (5.0-9.0) Ur Specific [place] (1.001-1.035) Urine Protein (Negative) mg/dL Urine Glucose (UA) (Negative) mg/dL Urine Ketones (Negative) mg/dL Ur Blood (Man) (Negative) Urine Nitrate (Negative) Urine Bilirubin (Negative) Urine Urobilinogen (<2.0) mg/dL Add Ur Microanalysis Leukocyte Esterase Rfl (Negative) SUZETTE/UL Urine RBC (0-2) /hpf Urine WBC (0-3) /hpf Urine WBC Clumps (None) /HPF Ur Squamous Epith Cells (Few) /hpf Urine Bacteria /hpf Urine Casts Influenza A (RT-PCR) (Negative) Influenza B (RT-PCR) (Negative) RSV (RT-PCR) (Negative) SARS-CoV-2 RNA (RT-PCR) (Negative) <Ama Morgan, LEATHER PRODUCTION MACHINE OPERATOR - Last Filed: 09/15/24 18:38> Lab Results 09/15/24 09/15/24 09/15/24 Range/Units 20:55 22:45 23:39 WBC 38.4 H (4.5-10.0) K/mm3 RBC 3.53 L (4.2-5.4) M/mm3 Hgb 10.0 L (12.0-15.0) g/dL Hct 31.0 L (37.0-47.0) % MCV 87.8 (80-100) fl MCH 28.3 (26-34) pg MCHC 32.3 (32-36) g/dl RDW 14.6 H (11.5-14.5) % Plt Count 327 (150-375) k/mm3 MPV 9.8 (7.4-10.4) fl Immature Gran % (Auto) 1.7 H (0-0.5) % Neut % (Auto) 92.3 H (45.5-73.1) % Lymph % (Auto) 1.7 L (18.3-44.2) % [place] % (Auto) 3.7 (2.6-8.5) % Eos % (Auto) 0.2 (0-4.4) % Baso % (Auto) 0.4 (0.2-1.2) % Lymph # (Auto) 0.64 L (0.9-3.2) K/mm3 [place] # (Auto) 1.4 H (0.1-0.6) K/mm3 Eos # (Auto) 0.1 (0-0.3) K/mm3 Baso # (Auto) 0.2 H (0.0-0.1) K/mm3 Abs Immat Gran (auto) 0.65 H (0.00-0.031) K/mm3 Absolute Neuts (auto) 35.5 H (1.3-6.7) K/mm3 Absolute Nucleated RBC 0.000 (0.0-0.012) K/mm3 Nucleated RBC % 0.0 (0.0-0.2) % PT 16.5 H (11.1-14.7) Seconds INR 1.3 APTT 34.3 (22.3-36.8) Seconds Sodium 136 L (137-145) mmol/L Potassium 3.9 (3.4-5.0) mmol/L Chloride 106 (98-107) mmol/L Carbon Dioxide 18 L (22-30) mmol/L Anion Gap 12 (4-12) mmol/L BUN 29 H (7-17) mg/dL Creatinine 2.65 H (0.7-1.0) mg/dL Estim Creat Clear Calc 20 ml/min Estimated GFR 18 L (59 - ) Glucose 141 H (65-110) mg/dL Lactic Acid 1.5 (0.7-2.0) mmol/L Calcium 9.7 (8.4-10.2) mg/dL Total Bilirubin 1.0 (0.2-1.3) mg/dL AST 29 (14-36) U/L ALT 16 (6-35) U/L Alkaline Phosphatase 65 (38-126) U/L Troponin I 0.197 H* (0.000-0.034) ng/mL C-Reactive Protein 17.8 H (<1.0) mg/dL Total Protein 7.0 (6.3-8.2) g/dL Albumin 3.5 (3.5-5.1) g/dL Urine Color Dark yellow (Yellow) Urine Appearance Turbid H (Clear) Urine pH 5.0 (5.0-9.0) Ur Specific [place] 1.019 (1.001-1.035) Urine Protein 3+ H (Negative) mg/dL Urine Glucose (UA) Negative (Negative) mg/dL Urine Ketones Trace H (Negative) mg/dL Ur Blood (Man) 3+ H (Negative) Urine Nitrate Negative (Negative) Urine Bilirubin 2+ H (Negative) Urine Urobilinogen 1.0 (<2.0) mg/dL Add Ur Microanalysis Reviewed Leukocyte Esterase Rfl 3+ H (Negative) SUZETTE/UL Urine RBC >100 H (0-2) /hpf Urine WBC >100 H (0-3) /hpf Urine WBC Clumps Present H (None) /HPF Ur Squamous Epith Cells Many H (Few) /hpf Urine Bacteria Rare /hpf Urine Casts >20 Influenza A (RT-PCR) Negative (Negative) Influenza B (RT-PCR) Negative (Negative) RSV (RT-PCR) Negative (Negative) SARS-CoV-2 RNA (RT-PCR) Negative (Negative) 09/15/24 Range/Units 23:57 WBC (4.5-10.0) K/mm3 RBC (4.2-5.4) M/mm3 Hgb (12.0-15.0) g/dL Hct (37.0-47.0) % MCV (80-100) fl MCH (26-34) pg MCHC (32-36) g/dl RDW (11.5-14.5) % Plt Count (150-375) k/mm3 MPV (7.4-10.4) fl Immature Gran % (Auto) (0-0.5) % Neut % (Auto) (45.5-73.1) % Lymph % (Auto) (18.3-44.2) % [place] % (Auto) (2.6-8.5) % Eos % (Auto) (0-4.4) % Baso % (Auto) (0.2-1.2) % Lymph # (Auto) (0.9-3.2) K/mm3 [place] # (Auto) (0.1-0.6) K/mm3 Eos # (Auto) (0-0.3) K/mm3 Baso # (Auto) (0.0-0.1) K/mm3 Abs Immat Gran (auto) (0.00-0.031) K/mm3 Absolute Neuts (auto) (1.3-6.7) K/mm3 Absolute Nucleated RBC (0.0-0.012) K/mm3 Nucleated RBC % (0.0-0.2) % PT (11.1-14.7) Seconds INR APTT (22.3-36.8) Seconds Sodium (137-145) mmol/L Potassium (3.4-5.0) mmol/L Chloride (98-107) mmol/L Carbon Dioxide (22-30) mmol/L Anion Gap (4-12) mmol/L BUN (7-17) mg/dL Creatinine (0.7-1.0) mg/dL Estim Creat Clear Calc ml/min Estimated GFR (59 - ) Glucose (65-110) mg/dL Lactic Acid (0.7-2.0) mmol/L Calcium (8.4-10.2) mg/dL Total Bilirubin (0.2-1.3) mg/dL AST (14-36) U/L ALT (6-35) U/L Alkaline Phosphatase (38-126) U/L Troponin I 0.122 H* D (0.000-0.034) ng/mL C-Reactive Protein (<1.0) mg/dL Total Protein (6.3-8.2) g/dL Albumin (3.5-5.1) g/dL Urine Color (Yellow) Urine Appearance (Clear) Urine pH (5.0-9.0) Ur Specific [place] (1.001-1.035) Urine Protein (Negative) mg/dL Urine Glucose (UA) (Negative) mg/dL Urine Ketones (Negative) mg/dL Ur Blood (Man) (Negative) Urine Nitrate (Negative) Urine Bilirubin (Negative) Urine Urobilinogen (<2.0) mg/dL Add Ur Microanalysis Leukocyte Esterase Rfl (Negative) SUZETTE/UL Urine RBC (0-2) /hpf Urine WBC (0-3) /hpf Urine WBC Clumps (None) /HPF Ur Squamous Epith Cells (Few) /hpf Urine Bacteria /hpf Urine Casts Influenza A (RT-PCR) (Negative) Influenza B (RT-PCR) (Negative) RSV (RT-PCR) (Negative) SARS-CoV-2 RNA (RT-PCR) (Negative) <Malina Nails PA-C - Last Filed: 09/16/24 03:01> Lab Results 09/15/24 09/15/24 09/15/24 Range/Units 20:55 22:45 23:39 WBC 38.4 H (4.5-10.0) K/mm3 RBC 3.53 L (4.2-5.4) M/mm3 Hgb 10.0 L (12.0-15.0) g/dL Hct 31.0 L (37.0-47.0) % MCV 87.8 (80-100) fl MCH 28.3 (26-34) pg MCHC 32.3 (32-36) g/dl RDW 14.6 H (11.5-14.5) % Plt Count 327 (150-375) k/mm3 MPV 9.8 (7.4-10.4) fl Immature Gran % (Auto) 1.7 H (0-0.5) % Neut % (Auto) 92.3 H (45.5-73.1) % Lymph % (Auto) 1.7 L (18.3-44.2) % [place] % (Auto) 3.7 (2.6-8.5) % Eos % (Auto) 0.2 (0-4.4) % Baso % (Auto) 0.4 (0.2-1.2) % Lymph # (Auto) 0.64 L (0.9-3.2) K/mm3 [place] # (Auto) 1.4 H (0.1-0.6) K/mm3 Eos # (Auto) 0.1 (0-0.3) K/mm3 Baso # (Auto) 0.2 H (0.0-0.1) K/mm3 Abs Immat Gran (auto) 0.65 H (0.00-0.031) K/mm3 Absolute Neuts (auto) 35.5 H (1.3-6.7) K/mm3 Absolute Nucleated RBC 0.000 (0.0-0.012) K/mm3 Nucleated RBC % 0.0 (0.0-0.2) % PT 16.5 H (11.1-14.7) Seconds INR 1.3 APTT 34.3 (22.3-36.8) Seconds Sodium 136 L (137-145) mmol/L Potassium 3.9 (3.4-5.0) mmol/L Chloride 106 (98-107) mmol/L Carbon Dioxide 18 L (22-30) mmol/L Anion Gap 12 (4-12) mmol/L BUN 29 H (7-17) mg/dL Creatinine 2.65 H (0.7-1.0) mg/dL Estim Creat Clear Calc 20 ml/min Estimated GFR 18 L (59 - ) Glucose 141 H (65-110) mg/dL Lactic Acid 1.5 (0.7-2.0) mmol/L Calcium 9.7 (8.4-10.2) mg/dL Total Bilirubin 1.0 (0.2-1.3) mg/dL AST 29 (14-36) U/L ALT 16 (6-35) U/L Alkaline Phosphatase 65 (38-126) U/L Troponin I 0.197 H* (0.000-0.034) ng/mL C-Reactive Protein 17.8 H (<1.0) mg/dL Total Protein 7.0 (6.3-8.2) g/dL Albumin 3.5 (3.5-5.1) g/dL Urine Color Dark yellow (Yellow) Urine Appearance Turbid H (Clear) Urine pH 5.0 (5.0-9.0) Ur Specific [place] 1.019 (1.001-1.035) Urine Protein 3+ H (Negative) mg/dL Urine Glucose (UA) Negative (Negative) mg/dL Urine Ketones Trace H (Negative) mg/dL Ur Blood (Man) 3+ H (Negative) Urine Nitrate Negative (Negative) Urine Bilirubin 2+ H (Negative) Urine Urobilinogen 1.0 (<2.0) mg/dL Add Ur Microanalysis Reviewed Leukocyte Esterase Rfl 3+ H (Negative) SUZETTE/UL Urine RBC >100 H (0-2) /hpf Urine WBC >100 H (0-3) /hpf Urine WBC Clumps Present H (None) /HPF Ur Squamous Epith Cells Many H (Few) /hpf Urine Bacteria Rare /hpf Urine Casts >20 Influenza A (RT-PCR) Negative (Negative) Influenza B (RT-PCR) Negative (Negative) RSV (RT-PCR) Negative (Negative) SARS-CoV-2 RNA (RT-PCR) Negative (Negative) 09/15/24 Range/Units 23:57 WBC (4.5-10.0) K/mm3 RBC (4.2-5.4) M/mm3 Hgb (12.0-15.0) g/dL Hct (37.0-47.0) % MCV (80-100) fl MCH (26-34) pg MCHC (32-36) g/dl RDW (11.5-14.5) % Plt Count (150-375) k/mm3 MPV (7.4-10.4) fl Immature Gran % (Auto) (0-0.5) % Neut % (Auto) (45.5-73.1) % Lymph % (Auto) (18.3-44.2) % [place] % (Auto) (2.6-8.5) % Eos % (Auto) (0-4.4) % Baso % (Auto) (0.2-1.2) % Lymph # (Auto) (0.9-3.2) K/mm3 [place] # (Auto) (0.1-0.6) K/mm3 Eos # (Auto) (0-0.3) K/mm3 Baso # (Auto) (0.0-0.1) K/mm3 Abs Immat Gran (auto) (0.00-0.031) K/mm3 Absolute Neuts (auto) (1.3-6.7) K/mm3 Absolute Nucleated RBC (0.0-0.012) K/mm3 Nucleated RBC % (0.0-0.2) % PT (11.1-14.7) Seconds INR APTT (22.3-36.8) Seconds Sodium (137-145) mmol/L Potassium (3.4-5.0) mmol/L Chloride (98-107) mmol/L Carbon Dioxide (22-30) mmol/L Anion Gap (4-12) mmol/L BUN (7-17) mg/dL Creatinine (0.7-1.0) mg/dL Estim Creat Clear Calc ml/min Estimated GFR (59 - ) Glucose (65-110) mg/dL Lactic Acid (0.7-2.0) mmol/L Calcium (8.4-10.2) mg/dL Total Bilirubin (0.2-1.3) mg/dL AST (14-36) U/L ALT (6-35) U/L Alkaline Phosphatase (38-126) U/L Troponin I 0.122 H* D (0.000-0.034) ng/mL C-Reactive Protein (<1.0) mg/dL Total Protein (6.3-8.2) g/dL Albumin (3.5-5.1) g/dL Urine Color (Yellow) Urine Appearance (Clear) Urine pH (5.0-9.0) Ur Specific [place] (1.001-1.035) Urine Protein (Negative) mg/dL Urine Glucose (UA) (Negative) mg/dL Urine Ketones (Negative) mg/dL Ur Blood (Man) (Negative) Urine Nitrate (Negative) Urine Bilirubin (Negative) Urine Urobilinogen (<2.0) mg/dL Add Ur Microanalysis Leukocyte Esterase Rfl (Negative) SUZETTE/UL Urine RBC (0-2) /hpf Urine WBC (0-3) /hpf Urine WBC Clumps (None) /HPF Ur Squamous Epith Cells (Few) /hpf Urine Bacteria /hpf Urine Casts Influenza A (RT-PCR) (Negative) Influenza B (RT-PCR) (Negative) RSV (RT-PCR) (Negative) SARS-CoV-2 RNA (RT-PCR) (Negative) <Camryn Walsh MD - Last Filed: 09/16/24 03:29> Imaging Data Radiologist's impression: ITS Impressions Chest X-Ray 09/15/24 19:08 IMPRESSION: Trace left basilar atelectasis, without focal infiltrate or effusion. Chest/Abdomen/Pelvis CT 09/15/24 22:26 IMPRESSION: Moderate right-sided hydroureteronephrosis secondary to a 5 mm calculus proximal to mid right ureter. <Malina Nails PA-C - Last Filed: 09/16/24 03:01> Critical Care Time Critical Care Time Critical Care Time: No <Malina Nails PA-C - Last Filed: 09/16/24 03:01> Discharge Plan Discharge Clinical Impression: Ureterolithiasis, Acute UTI, Acute kidney injury <Ama Morgan APRN - Last Filed: 09/15/24 18:38> Patient Disposition: Still a Patient <Ama Morgan APRN - Last Filed: 09/15/24 18:38> Condition: Stable <Ama Morgan APRN - Last Filed: 09/15/24 18:38>
[2024-09-15 20:44] VITALS: BP 108/66; PULSE 102; RESP 17; TEMP 37.1; O2SAT 97
[2024-09-15 20:48] VITALS: BP 108/66; PULSE 100; RESP 17; TEMP 37.1; O2SAT 100; O2SAT 99
[2024-09-15 21:01] LABS: Hematocrit 31.0 % (37.0-47.0); Hemoglobin 10.0 g/dL (12.0-15.0); Immature Granulocyte Percent A 1.7 % (0-0.5); Lymphocytes Absolute Auto 0.64 K/mm3 (0.9-3.2); Mean Corpuscular HGB Conc 32.3 g/dl (32-36); Mean Corpuscular Hemoglobin 28.3 pg (26-34); Mean Corpuscular Volume 87.8 fl (80-100); Nucleated Red Blood Cells Absolute Auto 0.000 K/mm3 (0.0-0.012); Nucleated Red Blood Cells Perc 0.0 % (0.0-0.2); Platelet Count Result 327 k/mm3 (150-375); Red Blood Count 3.53 M/mm3 (4.2-5.4); White Blood Count 38.4 K/mm3 (4.5-10.0)
[2024-09-15 21:14] LABS: INR 1.3; Prothrombin Time 16.5 Seconds (11.1-14.7)
[2024-09-15 21:15] LABS: Partial Thromboplastin Time 34.3 Seconds (22.3-36.8)
[2024-09-15 21:23] LABS: Alanine Aminotransferase 16 U/L (6-35); Albumin Level 3.5 g/dL (3.5-5.1); Alkaline Phosphatase 65 U/L (38-126); Anion Gap 12 mmol/L (4-12); Aspartate Amino Transferase 29 U/L (14-36); Bilirubin,Total 1.0 mg/dL (0.2-1.3); Blood Urea Nitrogen 29 mg/dL (7-17); Calcium 9.7 mg/dL (8.4-10.2); Carbon Dioxide 18 mmol/L (22-30); Chloride 106 mmol/L (98-107); Estimated CRCL calculation 20 ml/min; Estimated Glomerular Filt Rate 18; Glucose 141 mg/dL (65-110); Potassium 3.9 mmol/L (3.4-5.0); Sodium 136 mmol/L (137-145); Total Protein 7.0 g/dL (6.3-8.2)
[2024-09-15 21:35] LABS: CRP 17.8 mg/dL (<1.0); Troponin I 0.197 ng/mL (0.000-0.034)
--- NOTE | 2024-09-15 22:08 | PC.NURSE ---
ok to hold on this rocephin dose as pt [facility] [place]
[2024-09-15] MEDS: SODIUM CHLORIDE 0.9% IV 1,000 ML 999 ML IV CONT (22:15)
--- NOTE | 2024-09-15 22:54 | PC.NURSE ---
pt updated that the urine she provided was not enough. Pt will attempt to try again after she receives a little bit more of her fluids she currently has infusing.
--- OUTSIDE RECORDS SUMMARY | 2024-09-15 22:54 | XMS_ITS | Referral Summary ---
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 Gender Identity Female 09/14/2020 6:35 AM CDT [...] on file Medical Devices Implanted Type Area Fisheries Technical Officer Device Identifier Shelf Expiration Date Model / Serial / Lot [employer] [id number] Amplatz 8.5fr 24cm 6 Sideport Introducer Catheter String - [id number] Implanted:Qty: 1 on 09/22/2020 at [facility] [employer] 09/29/2022 [id number] / / [id number] Insurance [place] CHOICE PRF [place]PO [place] Advance Directives For more information, please contact: [phone] Documents on File Type Date Recorded Patient Hoop Maker Expl anation Advance Directives and Livin g Will 09/07/2020 11:04 AM * Full Code (Latest Code Status on File) Date Activated Date Inactivated Comments 09/21/2020 8:02 PM 09/23/2020 3:00 PM Care Teams Tax Collector Relationship Specialty Start Date End Date Chacorta Valenzuela MD [address] [place] [address] PCP - General Family Medicine 09/07/20 Jose E Rodrigues MD [address] [place] [address] Consulting Physician Urology 09/23/20
--- OUTSIDE RECORDS SUMMARY | 2024-09-15 22:54 | XMS_ITS | Clinical Summary ---
Author Organization [facility] Need Address [address] [place] [address] Care Team Providers Care Oil Field Equipment Mechanic Supervisor Name Role Phone Unavailable Primary Care Provider Unavailabl e Source Comments [facility] Need,non-owned Affiliates and Associated Physician Practices is amultiple site organization consisting of ambulatory clinics and hospital sitesin [place], [place], [place] and [place]. This disclosure is being madepursuant to the Care Everywhere program and may not contain all information available regarding this patient. Last updated 17.[facility] Need Social History Tobacco Use Types Packs/Day Years [...] this topic Insurance [facility] MEDICARE
--- OUTSIDE RECORDS SUMMARY | 2024-09-15 22:54 | XMS_ITS | Encounter Summary ---
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
--- OUTSIDE RECORDS SUMMARY | 2024-09-15 22:54 | XMS_ITS | Encounter Summary ---
Author Organization [facility] Address [address] [facility] [place] [address] Care Team Providers Care Phlebotomy Support Tech Name Role Phone Unavailable Primary Care Provider Unavailabl e Encounter Details Date Type Department Care Team (Late st Contact Info) Description 12/19/2023 Lab Requisition [facility] - DermPath Lab [address] [place] [id number] Veronika Lancaster PA-C [address] [place] [address] Dermatitis, unspecified Social History Tobacco [...] CDT) Case Report Dermatopathol ogy Report Case: [id number] Authorizing Provider: Veronika Lancaster, Collected: 12/19/2023 12:00 AM BETHANIE Ordering Location: [facility] - Received: 12/20/2023 11:58 AM DermPath Lab Pathologist: Susie Crowley MD Specimen: Skin, left distal thigh 4 5:19 PM [facility] Final Diagnosis Specimen A. SKIN, left distal thigh: NO IMMUNOPATHOLO GICAL ABNORMALITY (L98.9) (see fixed tissue results [id number]) 4 5:19 PM [facility] DERMATOPATHOLOGY LABORATORY at [address] [facility] Direct Immunofluorescence Report - Specimen A Specimen A IgA IgM IgG C3 CollV Fibrinogen Epidermis Negative Negative Negative Negative Negative Negative Basement Membrane Negative Negative Negative Negative 2+ Negative Vessels Negative Negative Negative Negative 2+ Negative Interstitium Negative Negative Negative Negative Negative Non specific 4 5:19 PM [facility] DERMATOPATHOLOGY LABORATORY Clinical History Acute cutaneous lupus erythematosus 4 5:19 PM [facility] DERMATOPATHOLOGY LABORATORY Gross Description Specimen A: Received is one Iwlton's media filled container labeled with the patient's name and designated left distal thigh. The specimen consists of a punch biopsy measuring 3x3x3 mm. The specimen is submitted in whole for direct immunofluores cence testing. 5:19 PM [facility] DERMATOPATHOLOGY LABORATORY Microscopic Description Specimen A. SKIN, left distal thigh: Controls were run in parallel. Staining is negative with IgA, IgM, IgG, and C3. Collagen IV stains the basement membrane zone and vessels. Fibrinogen shows non-specific staining. A hematoxylin and eosin stained frozen section shows no significant inflammation. See fixed tissue results. 5:19 PM [facility] DERMATOPATHOLOGY LABORATORY Disclaimer An external and internal positive and negative controls are appropriate for the histochemical , immunohistoch emical and immunofluores cence stain(s) in this case (if any), except where stated explicitly. The performance characteristi cs of the stain(s) cited in this report were developed and its performance characteristi c determined by the Dermatopathol ogy Laboratory at [facility], directed by Dr. Humberto Crowley. These tests need not be, and therefore are not, approved by the [place] Food and Drug Administratio n. The tests are used for clinical purposes. Billing Codes Specimen Charges Stain Charges 01353 98291 28075 81817 04903 00955 1 1 1 1 1 1 4 5:19 PM [facility] DERMATOPATHOLOGY LABORATORY Embedded Images 5:19 PM [facility] DERMATOPATHOLOGY LABORATORY Pathology/Cytolog y TISSUE SPECIMEN FROM SKIN / Unknown 12/19/2023 12/20/2023 11:58 AM CDT Veronika Lancaster PA-C LAB - PATHOLOGY/CYTO LOGY ORDERABLES Final Result DERMATOPATHOLOGY LABORATORY [facility] - Department of Dermatology [facility] Specialized Medicine [address] [place] [address], [address] [phone] documented in this encounter Visit Diagnoses Diagnosis Dermatitis, unspecified documented in this encounter
--- OUTSIDE RECORDS SUMMARY | 2024-09-15 22:54 | XMS_ITS | Encounter Summary ---
Author Organization [facility] Address [address] [place] [address] Care Team Providers Care Ob Gyn Physician Assistant Name Role Phone Unavailable Primary Care Provider Unavailabl e Encounter Details Date Type Department Care Team (Late st Contact Info) Description 12/20/2023 Lab Requisition [facility] - DermPath Lab [address] [place] [id number] Marcin Marie MD [facility] DERMATOLOGY [address] [place] [address] Social History Tobacco Use Types Packs/Day [...] AM CDT) Case Report Dermatopathology Report Case: [id number] Authorizing Provider: Marcin Marie MD Collected: 12/19/2023 12:00 AM Ordering Location: [facility] Physician [facility] - Received: 12/20/2023 11:57 AM DermPath Lab Pathologist: Susie Crowley MD Specimen: Skin, left proximal thigh 5:19 PM STAFF PSYCHOLOGIST DERMATOPATHOLOGY LABORATORY Final Diagnosis Specimen A. SKIN, left proximal thigh: SUPERFICIAL AND DEEP PERIVASCULAR LYMPHOCYTIC INFILTRATE WITH EOSINOPHILS (L27.0) (see microscopic description and comment) (see direct immunofluorescence results [id number]) 4 5:19 PM [facility] DERMATOPATHOLOGY LABORATORY at [address] STAFF PSYCHOLOGIST Clinical History Acute cutaneous lupus erythematosus 4 5:19 PM [facility] DERMATOPATHOLOGY LABORATORY Gross Description Specimen A: Received is one formalin filled container labeled with the patient's name and designated left proximal thigh. The specimen consists of a punch biopsy measuring 4x4x3 mm. Jar 0. 4 5:19 PM [facility] DERMATOPATHOLOGY LABORATORY Microscopic Description Specimen A. SKIN, left proximal thigh: Sections show a superficial and deep perivascular and interstitial infiltrate including lymphocytes and eosinophils. There is focal spongiosis and vacuolar interface changes. See direct immunofluorescence results. COMMENT: These histological findings are often seen in hypersensitivity reactions to an ingested allergen. 5:19 PM [facility] DERMATOPATHOLOGY LABORATORY Disclaimer An external and internal positive and negative controls are appropriate for the histochemical, immunohistochemical and immunofluorescence stain(s) in this case (if any), except where stated explicitly. The performance characteristics of the stain(s) cited in this report were developed and its performance characteristic determined by the Dermatopathology Laboratory at [facility], directed by Dr. Humberto Crowley. These tests need not be, and therefore are not, approved by the [place] Food and Drug Administration. The tests are used for clinical purposes. Billing Codes Specimen Charges Stain Charges 63658 1 4 5:19 PM [facility] DERMATOPATHOLOGY LABORATORY Embedded Images 4 5:19 PM [facility] DERMATOPATHOLOGY LABORATORY Pathology/Cytolog y TISSUE SPECIMEN FROM SKIN / Unknown 12/19/2023 12/20/2023 11:57 AM CDT us Marcin Marie MD LAB - PATHOLOGY/CYTOLOGY GOSIA MORA Final Result DERMATOPATHOLOGY LABORATORY [facility] - Department of Dermatology [address], [address] [phone] documented in this encounter Visit Diagnoses Not on filedocumented in this encounter
--- OUTSIDE RECORDS SUMMARY | 2024-09-15 22:54 | XMS_ITS | Encounter Summary ---
Author Organization [facility] Address [address] [place] [address] Care Team Providers Care Elementary Instructional Coach Name Role Phone Chacorta Valenzuela MD Primary Care Provider +1- [phone] Encounter Details Date Type Department Care Team (Late st Contact Info) Description 11/03/2020 Prep for Procedure [facility] [place] [address] Jose E Rodrigues MD [address] [facility] [place] [address] Social History Tobacco Use Types Packs/Day Years [...] Labadie, Erica la V, RN Active * Iva Suicide Severity Rating Scale (Screener/Recent Self-Report) Question [...] BASIC METABOLIC PANEL (11/01/2020 8:37 AM CDT) [facility] GLUCOSE 98 70 - 99 MG/DL 11/01/2020 9:55 AM CDT [facility] BUN 19(H) 7 - 18 MG/DL 11/01/2020 9:55 AM CDT [facility] CREATININE S/P/B 1.10(H) 0.55 - 1.02 MG/DL 11/01/2020 9:55 AM CDT [facility] SODIUM S/P/B 140 136 - 145 MMOL/L 11/01/2020 9:55 AM CDT [facility] POTASSIUM S/P/B 4.3 3.5 - 5.1 MMOL/L 11/01/2020 9:55 AM CDT [facility] CHLORIDE S/P/B 106 100 - 108 MMOL/L 11/01/2020 9:55 AM CDT [facility] CO2 28.3 21 - 32 MMOL/L 11/01/2020 9:55 AM CDT [facility] CALCIUM S/P/B 9.7 8.5 - 10.1 MG/DL 11/01/2020 9:55 AM CDT [facility] ANION GAP 5.7 5 - 15 MMOL/L 11/01/2020 9:55 AM CDT [facility] BUN CREATININE RATIO 17.3 6 - 26 11/01/2020 9:55 AM CDT [facility] EGFR NON-AFR. AMER. 53(L) >90 ML/MIN/1.7 3 M2 11/01/2020 9:55 AM CDT [facility] EGFR AFR. AMER. 61(L) >90 ML/MIN/1.7 3 M2 11/01/2020 9:55 AM CDT [facility] Comment: NOTE: eGFR is not calculated for patients <18 years of age. This is an estimated GFR (CKD EPI) and should not be used for calculating drug doses. 11/01/2020 8:37 AM CDT Gretchen Llamas [facility] Final R esult [facility] [address] [place] [address], [place] [phone] * (ABNORMAL) CBC W/DIFF AUTOMATED (11/01/2020 8:37 AM CDT) WBC 7.4 4.5 - 11.0 x10'3/uL 11/01/2020 9:36 AM CDT [facility] RBC 4.10(L) 4.20 - 5.40 x10'6/uL 11/01/2020 9:36 AM CDT [facility] HGB 11.6(L) 12.0 - 16.0 G/DL 11/01/2020 9:36 AM CDT [facility] HCT 36.1(L) 38.0 - 48.0 % 11/01/2020 9:36 AM CDT [facility] MCV 88.0 81.0 - 99.0 FL 11/01/2020 9:36 AM CDT [facility] MCH 28.3 27.0 - 31.0 PG 11/01/2020 9:36 AM CDT [facility] MCHC 32.1 32.0 - 36.0 G/DL 11/01/2020 9:36 AM CDT [facility] RDW 12.7 11.5 - 14.5 % 11/01/2020 9:36 AM CDT [facility] PLT 294 130 - 400 x10'3/uL 11/01/2020 9:36 AM CDT [facility] MPV 9.6 9.3 - 12.2 FL 11/01/2020 9:36 AM CDT [facility] DIFFERENTIAL TYPE AUTOMATED DIFFERENTIAL 11/01/2020 9:36 AM CDT [facility] NEUTROPHILS % 58.0 % 11/01/2020 9:36 AM CDT [facility] LYMPHOCYTES % 26.1 % 11/01/2020 9:36 AM CDT [facility] MONOCYTES % 9.8 % 11/01/2020 9:36 AM CDT [facility] EOSINOPHILS 5.0 % 11/01/2020 9:36 AM CDT [facility] BASOPHILS 0.4 % 11/01/2020 9:36 AM CDT [facility] IMMATURE GRANS % 0.7 % 11/02/19 9:36 AM CDT [facility] ABS. NEUTROPHILS TOTAL 4.31 1.80 - 7.70 x10'3/uL 11/01/2020 9:36 AM CDT [facility] ABS. LYMPHOCYTES 1.94 1.00 - 4.80 x10'3/uL 11/01/2020 9:36 AM CDT [facility] ABS. MONOCYTES 0.73 0.24 - 0.86 x10'3/uL 11/01/2020 9:36 AM CDT [facility] ABS. EOSINOPHILS 0.37(H) 0.04 - 0.36 x10'3/uL 11/01/2020 9:36 AM CDT [facility] ABS. BASOPHILS 0.03 0.01 - 0.08 x10'3/uL 11/01/2020 9:36 AM CDT [facility] ABS. IMMATURE GRANULOCYTES 0.05 0.00 - 0.49 x10'3/uL 11/01/2020 9:36 AM CDT [facility] 11/01/2020 8:37 AM CDT us Gretchen Llamas [facility] Final R esult [facility] [address] [place] [address], documented in this encounter Visit Diagnoses Diagnosis Preoperative testing- Primary Preoperative examination, unspecified documented in this encounter Care Teams Elementary Instructional Coach Relationship Specialty Start Date End Date Chacorta Valenzuela MD [address] [place] [address] PCP - General FAMILY PRACTICE 11/01/20 documented as of this encounter
--- OUTSIDE RECORDS SUMMARY | 2024-09-15 22:54 | XMS_ITS | Continuity of Care Document ---
Author Organization [facility] Address [address] [place] [address] Phone Care Team Providers Care Luggage Repairer Name Role Phone Dinorah Figueroa Unavailable Unavailable Advance Directives Directive Yes / No Effective Date File Name No Information Encounters Encounter Description Practice Location Reason(s) For Visit Diagnoses Date Provider Providers Copied on Encounter [facility], [address], [place], [place], [id number], [place] tel:[phone] [facility] No Information 0-[address] Carolina Copeland. [address] , [address], [place], [address], [place]. tel:[phone] Family History Family Member Type Diagnosis Age At Onset No Information Payers Payer name Insurance type Covered democrat ID Authoriza tion(s) [employer] SOI CI [id number] Social History Type Description Quantity Date Captured [...]
--- OUTSIDE RECORDS SUMMARY | 2024-09-15 22:54 | XMS_ITS | Clinical Summary ---
Author Organization [facility] Address [address] [place] [address] Care Team Providers Care Correctional Food Service Supervisor Name Role Phone Chacorta Valenzuela MD Primary Care Provider [phone]- [phone] Allergies Active Allergy Reactions Criticality Noted Date [...] this topic Medical Devices Implanted Type Area Facility Supervisor Device Identifier Shelf Expiration Date Model / Serial / Lot Percuflex Plus Ureteral Stent 6f X 24cm Implanted:Qty: 1 on 11/03/2020 by Jose E Rodrigues MD at [facility] Stent Left: Ureter [id number] 06/28/2023 [id number] / / [id number] Insurance [employer] Care Teams Correctional Food Service Supervisor Relationship Specialty Start Date End Date Chacorta Valenzuela MD [address] [place] [address] PCP - General FAMILY PRACTICE 11/01/20
--- OUTSIDE RECORDS SUMMARY | 2024-09-15 22:54 | XMS_ITS | Clinical Summary ---
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 Gender Identity Female 09/14/2020 6:35 AM CDT [...] on file Medical Devices Implanted Type Area Fund Development Manager Device Identifier Shelf Expiration Date Model / Serial / Lot [employer] [id number] Amplatz 8.5fr 24cm 6 Sideport Introducer Catheter String - [id number] Implanted:Qty: 1 on 09/22/2020 at [facility] [employer] 09/29/2022 [id number] / [id number] Insurance BL CHOICE PRF PPO [place] Advance Directives For more information, please contact: [phone] Documents on File Type Date Recorded Patient Network Intelligence Analyst Expl anation Advance Directives and Livin g Will 09/07/2020 11:04 AM * Full Code (Latest Code Status on File) Date Activated Date Inactivated Comments 09/21/2020 8:02 PM 09/23/2020 3:00 PM Care Teams Plane Captain Relationship Specialty Start Date End Date Chacorta Valenzuela MD [address] [place] [address] PCP - General Family Medicine 09/07/20 Jose E Rodrigues MD [address] [place] [address] Consulting Physician Urology 09/23/20
--- OUTSIDE RECORDS SUMMARY | 2024-09-15 22:54 | XMS_ITS | Encounter Summary ---
Author Organization [facility] Healthcare Address [address] [place] [address] Care Team Providers Care Refrigeration Mechanic Helper Name Role Phone Chacorta Valenzuela MD Primary Care Prov ider Jose E Rodrigues MD Unavailable +1- [phone] Encounter Details Date Type Department Care Team (Late st Contact Info) Description 08/18/2020 Telephone [facility] - Interventional Radiology [facility] [place] [address] Marycruz Conte RN Social History Tobacco Use Types Packs/Day Years Used Date Smoking Tobacco: Never Assessed Comments Unknown Sex and Gender Information Value Date Recorded Sex Assigned at Not on file 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
[2024-09-15 23:33] LABS: Influenza A QL RT-PCR Negative (Negative); Influenza B QL RT-PCR Negative (Negative); RSV RNA, RT-PCR Negative (Negative); SARS-CoV-2 RNA PCR Negative (Negative)
[2024-09-15 23:52] VITALS: BP 141/64; PULSE 86; RESP 16; TEMP 36.6; O2SAT 99
[2024-09-16] VITALS (67 sets, daily range): BP systolic 98–146; BP diastolic 52–73; PULSE 77–110; RESP 10–24; TEMP 36.6–37.6; O2SAT 96–100; BMI 29.1
--- NOTE | 2024-09-16 00:02 | ECG_ITS ---
Test Date: 2024-09-16 00:06:16 Measurements Intervals Zenia Rate: 87 P: 63 SC: 208 QRS: 21 QRSD: 133 T: 14 QT: 388 QTc: 468 Interpretive Statements SINUS RHYTHM INTRAVENTRICULAR CONDUCTION DELAY Electronically Signed On 09-16-2024 17:19:01 CDT by Juan Feliciano D.O
[2024-09-16 00:21] LABS: Add Urine Microscopic? YES; Appearance Urine Turbid (Clear); Glucose Urine UA Negative (Negative); Leukocyte Esterase Ur 3+ LEU/UL (Negative); Need Manual Microscopic Reviewed; Nitrate Urine Negative (Negative); Non Pathogenic Casts >20; Specific Grav Ur 1.019 (1.001-1.035)
[2024-09-16 00:59] LABS: Troponin I 0.122 ng/mL (0.000-0.034)
[2024-09-16] MEDS: METOCLOPRAMIDE HCL INJ 10 MG/2 ML VIAL IV PUSH (01:39)
[2024-09-16] MEDS: SODIUM CHLORIDE 0.9% IV 200 ML 999 ML (01:40)
[2024-09-16] MEDS: SODIUM CHLORIDE 0.9% IV 1,000 ML 999 ML IV CONT (01:54)
[2024-09-16] MEDS: SODIUM CHLORIDE 0.9% IV 1,000 ML 125 ML IV CONT ×3 (02:57→23:20)
[2024-09-16 06:01] LABS: Hematocrit 24.0 % (37.0-47.0); Hemoglobin 7.7 g/dL (12.0-15.0); Immature Granulocyte Percent A 1.1 % (0-0.5); Lymphocytes Absolute Auto 1.48 K/mm3 (0.9-3.2); Mean Corpuscular HGB Conc 32.1 g/dl (32-36); Mean Corpuscular Hemoglobin 28.7 pg (26-34); Mean Corpuscular Volume 89.6 fl (80-100); Nucleated Red Blood Cells Absolute Auto 0.000 K/mm3 (0.0-0.012); Nucleated Red Blood Cells Perc 0.0 % (0.0-0.2); Platelet Count Result 220 k/mm3 (150-375); Red Blood Count 2.68 M/mm3 (4.2-5.4); White Blood Count 25.0 K/mm3 (4.5-10.0)
[2024-09-16 06:28] LABS: Alanine Aminotransferase 12 U/L (6-35); Albumin Level 2.6 g/dL (3.5-5.1); Alkaline Phosphatase 53 U/L (38-126); Anion Gap 7 mmol/L (4-12); Aspartate Amino Transferase 43 U/L (14-36); Bilirubin,Total 0.5 mg/dL (0.2-1.3); Blood Urea Nitrogen 32 mg/dL (7-17); Calcium 8.2 mg/dL (8.4-10.2); Carbon Dioxide 21 mmol/L (22-30); Chloride 110 mmol/L (98-107); Estimated CRCL calculation 20 ml/min; Estimated Glomerular Filt Rate 18; Glucose 99 mg/dL (65-110); Magnesium 1.8 mg/dL (1.6-2.3); Potassium 3.9 mmol/L (3.4-5.0); Sodium 138 mmol/L (137-145); Total Protein 5.4 g/dL (6.3-8.2)
[2024-09-16 06:46] LABS: Procalcitonin > 100.0 ng/mL
--- NOTE | 2024-09-16 07:48 | P.CONUR_ITS ---
Assessment and Plan Assessment and plan (1) Right ureteral calculus: Code(s): N20.1 - Calculus of ureter Status: Acute Assessment and Plan: Patient is admitted to the medicine service given her elevated white count and tachycardia earlier. She is hemodynamically stable at this time. Given the possibility of UTI will proceed with cystoscopy right retrograde, right stent placement today. The stone will need to be addressed at a later point in time Urology Consult Note HPI Date Seen: 09/16/24 Time Seen: 07:48 Requesting Physician: Nadia Watson MD Primary Care Provider: Chacorta Valenzuela MD Consult Narrative Reason for consult: Right ureteral calculus 5 mm with UTI Narrative: Qi Anderson is a 69 year old female who has a history of stones requiring PCNL in the past. She now most recently over the past week had symptoms of a UTI was treated with antibiotics. She was feeling worse and presented to the emergency room actually with some respiratory issues and some tachycardia. Evaluation revealed a 5 mm right ureteral calculus with some mild hydronephrosis. Urinalysis had leukocyte esterase positive and white cells but rare bacteria. Surprisingly she has been asymptomatic otherwise. When I received a call from the emergency room they felt patient was hemodynamically stable. She is currently in the emergency room at the time of my evaluation. She is resting fairly comfortably. Afebrile. White count however was elevated at 38,000 eight thousand in his down in the 20,000 retention today. Review of Systems 2 Review of Systems: All systems reviewed & are unremarkable except as noted in HPI and below PMFSH Past Medical History Medical History BMI 32.0-32.9,adult Trochanteric bursitis Left hip pain Chronic right hip pain History of renal calculi (10/2020) Osteopenia Pure hyperglyceridemia Migraine Recurrent cystitis Obstruction of left ureteropelvic junction (UPJ) due to stone Occult blood in stools SLE (systemic lupus erythematosus) Hypertension Surgical History Surgical History History of lithotripsy History of X2 History of hysterectomy with bilateral oophorectomy Family History Family History Sibling Breast cancer Bladder cancer Father Carcinoma of colon Diabetes mellitus Hypertension Mother Cerebrovascular accident Family history of arthritis Social History Social History Smoking status: Never smoker Second hand tobacco smoke exposure: Yes Alcohol intake: never Substance use: never Substance use type: does not use Do You Feel Safe in your Home?: Yes Lack of Transportation: No Lack of Food: Never True Current Housing: I Have Housing Concerned About Future Housing: No Difficulty Paying Gas/Electric Bills: No Difficulty Paying for Meds: No Currently Unemployed: No Education: Associate Degree Difficulty w/ Childcare or Family Care: No Living arrangements: with family Occupation/Education: retired 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 Gender identity (if verbalized by the patient): Female Sexual Orientation (if Verbalized by the Patient): Straight or Heterosexual Spiritual care concerns: No Agree to blood products: Yes Meds Home Medications and Allergies Home Medications ?Medication ?Instructions ?Recorded ?Confirmed ?Type apple cider vinegar 600 mg capsule mg PO 04/09/23 07/29/24 History fenofibrate 160 mg tablet 160 mg PO QPM #90 tabs 10/26/23 07/29/24 Rx meloxicam 15 mg tablet 15 mg PO DAILY #90 tabs 10/26/23 07/29/24 Rx trazodone 100 mg tablet 100 mg PO HS #90 tabs 10/26/23 07/29/24 Rx losartan 100 mg tablet 100 mg PO DAILY #90 tabs 05/30/24 07/29/24 Rx verapamil 120 mg 24 hr 120 mg PO DAILY #90 caps 07/04/24 07/29/24 Rx capsule,extended release Allergies Allergy/AdvReac Type Severity Reaction Status Date / Time clomiphene (From Clomid) Allergy Mild Rash Verified 09/15/24 20:50 Sulfa (Sulfonamide Allergy Mild Unknown Verified 09/15/24 20:50 Antibiotics) Vital Signs Vital Signs - 24 hr 09/15/24 18:18 09/15/24 20:44 09/15/24 20:48 Temperature 37.1 C 37.1 C Pulse Rate 125 H 102 H Respiratory Rate 24 H 17 Blood Pressure 133/58 L 108/66 Pulse Oximetry 97 97 99 Oxygen Delivery Room Air Room Air Room Air 09/15/24 20:48 09/15/24 23:52 09/16/24 00:01 Temperature 37.1 C 36.6 C Pulse Rate 100 86 91 Respiratory Rate 17 16 21 H Blood Pressure 108/66 141/64 H 138/65 Pulse Oximetry 100 99 98 Oxygen Delivery 09/16/24 00:13 09/16/24 00:15 09/16/24 00:16 Temperature Pulse Rate 89 91 90 Respiratory Rate 20 20 19 Blood Pressure 134/62 Pulse Oximetry 97 98 97 Oxygen Delivery 09/16/24 00:30 09/16/24 00:31 09/16/24 00:46 Temperature Pulse Rate 88 89 85 Respiratory Rate 19 19 16 Blood Pressure 123/58 L 128/56 L Pulse Oximetry 97 97 97 Oxygen Delivery 09/16/24 00:47 09/16/24 01:00 09/16/24 01:01 Temperature Pulse Rate 87 88 86 Respiratory Rate 18 17 24 H Blood Pressure 116/68 Pulse Oximetry 97 98 97 Oxygen Delivery 09/16/24 01:41 09/16/24 01:45 09/16/24 01:46 Temperature Pulse Rate 86 86 86 Respiratory Rate 21 H 17 18 Blood Pressure 131/64 Pulse Oximetry 97 98 98 Oxygen Delivery 09/16/24 02:00 09/16/24 02:01 09/16/24 02:15 Temperature Pulse Rate 90 88 87 Respiratory Rate 16 17 15 Blood Pressure 139/55 L Pulse Oximetry 97 96 96 Oxygen Delivery 09/16/24 02:16 09/16/24 03:15 09/16/24 03:37 Temperature Pulse Rate 86 85 83 Respiratory Rate 15 16 14 Blood Pressure 128/56 L Pulse Oximetry 96 98 97 Oxygen Delivery 09/16/24 03:45 09/16/24 03:46 09/16/24 04:00 Temperature Pulse Rate 84 82 82 Respiratory Rate 15 14 16 Blood Pressure 135/60 Pulse Oximetry 96 98 97 Oxygen Delivery 09/16/24 04:01 09/16/24 04:16 09/16/24 04:17 Temperature Pulse Rate 82 82 81 Respiratory Rate 14 16 16 Blood Pressure 137/58 L 130/58 L Pulse Oximetry 97 97 97 Oxygen Delivery 09/16/24 04:30 09/16/24 04:31 09/16/24 04:45 Temperature Pulse Rate 82 78 82 Respiratory Rate 14 16 14 Blood Pressure 127/54 L Pulse Oximetry 96 97 97 Oxygen Delivery 09/16/24 04:46 09/16/24 05:02 09/16/24 05:24 Temperature Pulse Rate 79 78 80 Respiratory Rate 15 12 15 Blood Pressure 130/60 Pulse Oximetry 98 98 98 Oxygen Delivery 09/16/24 05:30 09/16/24 05:32 09/16/24 05:45 Temperature Pulse Rate 80 79 83 Respiratory Rate 12 12 16 Blood Pressure 135/62 Pulse Oximetry 98 100 99 Oxygen Delivery 09/16/24 05:46 09/16/24 06:00 09/16/24 06:01 Temperature Pulse Rate 84 81 83 Respiratory Rate 17 16 15 Blood Pressure 120/63 123/61 Pulse Oximetry 99 98 100 Oxygen Delivery 09/16/24 06:15 09/16/24 06:16 09/16/24 06:30 Temperature Pulse Rate 80 79 81 Respiratory Rate 13 13 12 Blood Pressure 108/55 L Pulse Oximetry 99 100 98 Oxygen Delivery 09/16/24 06:31 09/16/24 06:48 09/16/24 07:00 Temperature Pulse Rate 80 78 80 Respiratory Rate 13 13 12 Blood Pressure 105/54 L Pulse Oximetry 98 98 98 Oxygen Delivery 09/16/24 07:01 09/16/24 07:15 09/16/24 07:16 Temperature Pulse Rate 77 82 85 Respiratory Rate 13 13 15 Blood Pressure 98/55 L 116/52 L Pulse Oximetry 98 97 98 Oxygen Delivery 09/16/24 07:30 09/16/24 07:31 Temperature Pulse Rate 80 80 Respiratory Rate 12 10 L Blood Pressure 99/53 L Pulse Oximetry 97 99 Oxygen Delivery Exam 2 Const: General: cooperative, comfortable and no acute distress Resp: Effort & Inspection: normal respiratory effort Cardio: Rate: regular rate Rhythm: regular rhythm Results Labs 09/16/24 05:42 09/16/24 05:42 Labs: Short CBC 09/15/24 09/16/24 Range/Units 20:55 05:42 WBC 38.4 H 25.0 H (4.5-10.0) K/mm3 Hgb 10.0 L 7.7 L (12.0-15.0) g/dL Hct 31.0 L 24.0 L (37.0-47.0) % Plt Count 327 220 (150-375) k/mm3 BMP 09/15/24 09/16/24 20:55 05:42 Sodium 136 L 138 Potassium 3.9 3.9 Chloride 106 110 H Carbon Dioxide 18 L 21 L BUN 29 H 32 H Creatinine 2.65 H 2.61 H Glucose 141 H 99 Calcium 9.7 8.2 L Cardiac Enzymes 09/15/24 09/15/24 Range/Units 20:55 23:57 Troponin I 0.197 H* 0.122 H* D (0.000-0.034) ng/mL Liver Function 09/15/24 09/16/24 Range/Units 20:55 05:42 Total Bilirubin 1.0 0.5 (0.2-1.3) mg/dL AST 29 43 H (14-36) U/L ALT 16 12 (6-35) U/L Alkaline Phosphatase 65 53 (38-126) U/L Albumin 3.5 2.6 L (3.5-5.1) g/dL Urine 09/15/24 Range/Units 23:39 Urine Color Dark yellow (Yellow) Urine Appearance Turbid H (Clear) Urine pH 5.0 (5.0-9.0) Ur Specific [place] 1.019 (1.001-1.035) Urine Protein 3+ H (Negative) mg/dL Urine Glucose (UA) Negative (Negative) mg/dL
--- NOTE | 2024-09-16 07:52 | WPDHPUPDATE1 ---
History and Physical Update Update Date/Time: 09/16/24 07:52 History and Physical has been reviewed, including an updated exam of the patient. There are NO changes in the patient's condition. Risks, benefits, and alternatives have been discussed and questions answered. Patient agrees to proceed with procedure.
--- NOTE | 2024-09-16 08:41 | PC.NURSE ---
This patient, Qi Anderson, was admitted to IMU status, and placed in Intensive Care Unit-4. Patient/family oriented to hospital policies and general routines including ID bracelet, bed and alarms, visiting hours, pain management, procedures, bathroom and other care routines, personal items, smoking policy, room service/diet, and visiting hours. Valuables list has been completed. Information on how to activate the Rapid Response Team has been discussed. Patient/Family are encouraged to report perceived risks to care and to ask questions if they do not understand what they are told or what they should do.
--- NOTE | 2024-09-16 10:56 | P.HP_ITS ---
H&P: HPI History of Present Illness Date/Time: 09/16/24 10:56 Chief Complaint: Fever Narrative: this is a 69-year-old female who presented to the ER with fever and chills. On and off since last week. She also reports mild cough nonproductive. She started getting short of breath yesterday and hence presented to the Urgent Care. Urgent Care she was told she has UTI was sent to ER for evaluation. She denies any abdominal pain nausea vomiting. In the ED she was tachycardic with normal blood pressure. Tachycardia improved with IV fluids. Laboratory studies showed WBC of 38.4 hemoglobin of 10 platelet count of 327. Chemistry showed a sodium of 136 potassium 3.9 chloride 106 bicarbonate 18 BUN 29 creatinine of 2.65 blood glucose 141 lactate was normal at 1.5 troponin was elevated 0.197 CRP 17.8 urinalysis suggestive of UTI influenza RSV COVID swab was negative procalcitonin elevated at more than 100. Repeat troponin 0.1122 see received a dose of ceftriaxone in the ER. Chest x-ray showed trace left basilar atelectasis without focal infiltrate or effusion. Chest abdomen pelvis CT showed moderate right-sided hydro ureter nephrosis secondary to 5 mm calculus proximal to mid right ureter. She is admitted for further treatment. Review of Systems Review of Systems: - CONSTITUTIONAL: Denies weight loss, re ports fever and chills. - HEENT: Denies changes in vision and he aring - RESPIRATORY: Reports SOB and cough. - CV: Denies palpitations and CP. - GI: Denies abdominal pain, nausea, vom iting and diarrhea. - : reports dysuria and urinary frequ ency. - MSK: Denies myalgia and joint pain. - SKIN: Denies rash and pruritus. - NEUROLOGICAL: Denies headache and sync ope. - PSYCHIATRIC: Denies recent changes in mood. Denies anxiety and depression. [facility] Past Medical History Medical History BMI 32.0-32.9,adult Trochanteric bursitis Left hip pain Chronic right hip pain History of renal calculi (10/2020) Osteopenia Pure hyperglyceridemia Migraine Recurrent cystitis Obstruction of left ureteropelvic junction (UPJ) due to stone Occult blood in stools SLE (systemic lupus erythematosus) Hypertension Surgical History Surgical History History of lithotripsy History of X2 History of hysterectomy with bilateral oophorectomy Family History Family History Sibling Breast cancer Bladder cancer Father Carcinoma of colon Diabetes mellitus Hypertension Mother Cerebrovascular accident Family history of arthritis Social History Social History Smoking status: Never smoker Second hand tobacco smoke exposure: Yes Alcohol intake: never Substance use: never Substance use type: does not use Do You Feel Safe in your Home?: Yes Lack of Transportation: No Lack of Food: Never True Current Housing: I Have Housing Concerned About Future Housing: No Difficulty Paying Gas/Electric Bills: No Difficulty Paying for Meds: No Currently Unemployed: No Education: Associate Degree Difficulty w/ Childcare or Family Care: No Living arrangements: with family Occupation/Education: retired 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 Gender identity (if verbalized by the patient): Female Sexual Orientation (if Verbalized by the Patient): Straight or Heterosexual Spiritual care concerns: No Agree to blood products: Yes Meds Home Medications and Allergies Home Medications ?Medication ?Instructions ?Recorded ?Confirmed ?Type apple cider vinegar 600 mg capsule 600 mg PO DAILY 04/09/23 09/16/24 History fenofibrate 160 mg tablet 160 mg PO QPM #90 tabs 10/26/23 09/16/24 Rx meloxicam 15 mg tablet 15 mg PO DAILY #90 tabs 10/26/23 09/16/24 Rx trazodone 100 mg tablet 100 mg PO HS #90 tabs 10/26/23 09/16/24 Rx losartan 100 mg tablet 100 mg PO DAILY #90 tabs 05/30/24 09/16/24 Rx verapamil 120 mg 24 hr 120 mg PO DAILY #90 caps 07/04/24 09/16/24 Rx capsule,extended release Allergies Allergy/AdvReac Type Severity Reaction Status Date / Time clomiphene (From Clomid) Allergy Mild Rash Verified 09/15/24 20:50 Sulfa (Sulfonamide Allergy Mild Unknown Verified 09/15/24 20:50 Antibiotics) Vital Signs Vital Signs - 24 hr 09/15/24 18:18 09/15/24 20:44 09/15/24 20:48 Temperature 98.8 F 98.8 F Pulse Rate 125 H 102 H Respiratory Rate 24 H 17 Blood Pressure 133/58 L 108/66 Pulse Oximetry 97 97 99 Oxygen Delivery Room Air Room Air Room Air 09/15/24 20:48 09/15/24 23:52 09/16/24 00:01 Temperature 98.8 F 97.8 F Pulse Rate 100 86 91 Respiratory Rate 17 16 21 H Blood Pressure 108/66 141/64 H 138/65 Pulse Oximetry 100 99 98 Oxygen Delivery 09/16/24 00:13 09/16/24 00:15 09/16/24 00:16 Temperature Pulse Rate 89 91 90 Respiratory Rate 20 20 19 Blood Pressure 134/62 Pulse Oximetry 97 98 97 Oxygen Delivery 09/16/24 00:30 09/16/24 00:31 09/16/24 00:46 Temperature Pulse Rate 88 89 85 Respiratory Rate 19 19 16 Blood Pressure 123/58 L 128/56 L Pulse Oximetry 97 97 97 Oxygen Delivery 09/16/24 00:47 09/16/24 01:00 09/16/24 01:01 Temperature Pulse Rate 87 88 86 Respiratory Rate 18 17 24 H Blood Pressure 116/68 Pulse Oximetry 97 98 97 Oxygen Delivery 09/16/24 01:41 09/16/24 01:45 09/16/24 01:46 Temperature Pulse Rate 86 86 86 Respiratory Rate 21 H 17 18 Blood Pressure 131/64 Pulse Oximetry 97 98 98 Oxygen Delivery 09/16/24 02:00 09/16/24 02:01 09/16/24 02:15 Temperature Pulse Rate 90 88 87 Respiratory Rate 16 17 15 Blood Pressure 139/55 L Pulse Oximetry 97 96 96 Oxygen Delivery 09/16/24 02:16 09/16/24 03:15 09/16/24 03:37 Temperature Pulse Rate 86 85 83 Respiratory Rate 15 16 14 Blood Pressure 128/56 L Pulse Oximetry 96 98 97 Oxygen Delivery 09/16/24 03:45 09/16/24 03:46 09/16/24 04:00 Temperature Pulse Rate 84 82 82 Respiratory Rate 15 14 16 Blood Pressure 135/60 Pulse Oximetry 96 98 97 Oxygen Delivery 09/16/24 04:01 09/16/24 04:16 09/16/24 04:17 Temperature Pulse Rate 82 82 81 Respiratory Rate 14 16 16 Blood Pressure 137/58 L 130/58 L Pulse Oximetry 97 97 97 Oxygen Delivery 09/16/24 04:30 09/16/24 04:31 09/16/24 04:45 Temperature Pulse Rate 82 78 82 Respiratory Rate 14 16 14 Blood Pressure 127/54 L Pulse Oximetry 96 97 97 Oxygen Delivery 09/16/24 04:46 09/16/24 05:02 09/16/24 05:24 Temperature Pulse Rate 79 78 80 Respiratory Rate 15 12 15 Blood Pressure 130/60 Pulse Oximetry 98 98 98 Oxygen Delivery 09/16/24 05:30 09/16/24 05:32 09/16/24 05:45 Temperature Pulse Rate 80 79 83 Respiratory Rate 12 12 16 Blood Pressure 135/62 Pulse Oximetry 98 100 99 Oxygen Delivery 09/16/24 05:46 09/16/24 06:00 09/16/24 06:01 Temperature Pulse Rate 84 81 83 Respiratory Rate 17 16 15 Blood Pressure 120/63 123/61 Pulse Oximetry 99 98 100 Oxygen Delivery 09/16/24 06:15 09/16/24 06:16 09/16/24 06:30 Temperature Pulse Rate 80 79 81 Respiratory Rate 13 13 12 Blood Pressure 108/55 L Pulse Oximetry 99 100 98 Oxygen Delivery 09/16/24 06:31 09/16/24 06:48 09/16/24 07:00 Temperature Pulse Rate 80 78 80 Respiratory Rate 13 13 12 Blood Pressure 105/54 L Pulse Oximetry 98 98 98 Oxygen Delivery 09/16/24 07:01 09/16/24 07:15 09/16/24 07:16 Temperature Pulse Rate 77 82 85 Respiratory Rate 13 13 15 Blood Pressure 98/55 L 116/52 L Pulse Oximetry 98 97 98 Oxygen Delivery 09/16/24 07:30 09/16/24 07:31 Temperature Pulse Rate 80 80 Respiratory Rate 12 10 L Blood Pressure 99/53 L Pulse Oximetry 97 99 Oxygen Delivery Exam Narrative: GENERAL: Well-appearing, well-nourished, and in no acute distress. HEAD: Normocephalic, atraumatic. EYES: EOMI. ENT: Nares clear, no rhinorrhea or epistaxis. Mucous membranes moist. CHEST: Clear to auscultation. No respiratory distress. No wheezes rales or rhonchi HEART: Regular rate and rhythm. No murmur heard. Normal peripheral pulses. ABDOMEN: Soft, nontender, nondistended, normal active bowel sounds. EXTREMITIES: Normal range of motion. No edema. SKIN: Warm, dry, no rash. NEURO: No focal deficits. Alert and oriented x3. PSYCH: Normal mood and affect H&P: Results Labs Labs: Short CBC 09/15/24 09/16/24 Range/Units 20:55 05:42 WBC 38.4 H 25.0 H (4.5-10.0) K/mm3 Hgb 10.0 L 7.7 L (12.0-15.0) g/dL Hct 31.0 L 24.0 L (37.0-47.0) % Plt Count 327 220 (150-375) k/mm3 BMP 09/15/24 09/16/24 20:55 05:42 Sodium 136 L 138 Potassium 3.9 3.9 Chloride 106 110 H Carbon Dioxide 18 L 21 L BUN 29 H 32 H Creatinine 2.65 H 2.61 H Glucose 141 H 99 Calcium 9.7 8.2 L Cardiac Enzymes 09/15/24 09/15/24 Range/Units 20:55 23:57 Troponin I 0.197 H* 0.122 H* D (0.000-0.034) ng/mL Liver Function 09/15/24 09/16/24 Range/Units 20:55 05:42 Total Bilirubin 1.0 0.5 (0.2-1.3) mg/dL AST 29 43 H (14-36) U/L ALT 16 12 (6-35) U/L Alkaline Phosphatase 65 53 (38-126) U/L Albumin 3.5 2.6 L (3.5-5.1) g/dL Urine 09/15/24 Range/Units 23:39 Urine Color Dark yellow (Yellow) Urine Appearance Turbid H (Clear) Urine pH 5.0 (5.0-9.0) Ur Specific [place] 1.019 (1.001-1.035) Urine Protein 3+ H (Negative) mg/dL Urine Glucose (UA) Negative (Negative) mg/dL Assessment and Plan Assessment and plan (1) Hypertension: Code(s): I10 - Essential (primary) hypertension Status: Acute (2) Acute kidney injury: Code(s): N17.9 - Acute kidney failure, unspecified Status: Acute (3) Right ureteral calculus: Code(s): N20.1 - Calculus of ureter Status: Acute (4) Acute UTI: Code(s): N39.0 - Urinary tract infection, site not specified Status: Acute (5) Sepsis: Code(s): A41.9 - Sepsis, unspecified organism Status: Acute Plan this is a 69-year-old female who presented to the ER with fever and chills. On and off since last week. She also reports mild cough nonproductive. She started getting short of breath yesterday and hence presented to the Urgent Care. Urgent Care she was told she has UTI was sent to ER for evaluation. She denies any abdominal pain nausea vomiting. In the ED she was tachycardic with normal blood pressure. Tachycardia improved with IV fluids. Laboratory studies showed WBC of 38.4 hemoglobin of 10 platelet count of 327. Chemistry showed a sodium of 136 potassium 3.9 chloride 106 bicarbonate 18 BUN 29 creatinine of 2.65 blood glucose 141 lactate was normal at 1.5 troponin was elevated 0.197 CRP 17.8 urinalysis suggestive of UTI influenza RSV COVID swab was negative procalcitonin elevated at more than 100. Repeat troponin 0.1122 see received a dose of ceftriaxone in the ER. Chest x-ray showed trace left basilar atelectasis without focal infiltrate or effusion. Chest abdomen pelvis CT showed moderate right-sided hydro ureter nephrosis secondary to 5 mm calculus proximal to mid right ureter. She is admitted for further treatment. Sepsis UTI Obstructive uropathy with right hydroureteronephrosis related to 5 mm ureter calculus in right mid ureter. Urology has been consulted and plan for stent placement PRO creatinine of 2.6. Baseline creatinine 1 continue IV hydration History of kidney stones in the past Hypertension SLE DVT prophylaxis Lovenox Code status full code
[2024-09-16] MEDS: cefTRIAXone 2 GM in SODIUM CHLORIDE 0.9% IV 50 ML 100 ML IVPB (12:50)
--- NOTE | 2024-09-16 14:48 | PC.NURSE ---
Patient to OR via stretcher
--- NOTE | 2024-09-16 15:02 | WPDANESEPPF ---
Anes - Initial Pre Proc Eval Procedure: Operation Date: 09/16/24 14:30 Proposed Procedures p Cystoscopy, Right Retrograde Pyelogram, Right Stent Placement - Ricardo Webb MD Date/Time: 09/16/24 15:02 Surgeon: Nadia Watson MD Pre Op Diagnosis: UTI, Kidney stone, Elevated troponin Patient Data Age: 69 Gender: F Height: 1.65 m Weight: 79.5 kg Last Vital Signs Temp 36.9 C 09/16/24 11:50 Pulse 84 09/16/24 14:00 Resp 18 09/16/24 11:50 BP 133/69 09/16/24 11:50 Pulse Ox 100 09/16/24 11:50 O2 Del Method Room Air 09/15/24 20:48 Allergies Allergy/AdvReac Type Severity Reaction Status Date / Time clomiphene (From Clomid) Allergy Mild Rash Verified 09/15/24 20:50 Sulfa (Sulfonamide Allergy Mild Unknown Verified 09/15/24 20:50 Antibiotics) Home Medications ?Medication ?Instructions ?Recorded ?Confirmed ?Type apple cider vinegar 600 mg capsule 600 mg PO DAILY 04/09/23 09/16/24 History fenofibrate 160 mg tablet 160 mg PO QPM #90 tabs 10/26/23 09/16/24 Rx meloxicam 15 mg tablet 15 mg PO DAILY #90 tabs 10/26/23 09/16/24 Rx trazodone 100 mg tablet 100 mg PO HS #90 tabs 10/26/23 09/16/24 Rx losartan 100 mg tablet 100 mg PO DAILY #90 tabs 05/30/24 09/16/24 Rx verapamil 120 mg 24 hr 120 mg PO DAILY #90 caps 07/04/24 09/16/24 Rx capsule,extended release Laboratory Tests 09/15/24 09/15/24 09/15/24 20:55 22:45 23:39 WBC 38.4 H K/mm3 (4.5-10.0) RBC 3.53 L M/mm3 (4.2-5.4) Hgb 10.0 L g/dL (12.0-15.0) Hct 31.0 L % (37.0-47.0) MCV 87.8 fl (80-100) MCH 28.3 pg (26-34) MCHC 32.3 g/dl (32-36) RDW 14.6 H % (11.5-14.5) Plt Count 327 k/mm3 (150-375) MPV 9.8 fl (7.4-10.4) Immature Gran % (Auto) 1.7 H % (0-0.5) Neut % (Auto) 92.3 H % (45.5-73.1) Lymph % (Auto) 1.7 L % (18.3-44.2) [place] % (Auto) 3.7 % (2.6-8.5) Eos % (Auto) 0.2 % (0-4.4) Baso % (Auto) 0.4 % (0.2-1.2) Lymph # (Auto) 0.64 L K/mm3 (0.9-3.2) [place] # (Auto) 1.4 H K/mm3 (0.1-0.6) Eos # (Auto) 0.1 K/mm3 (0-0.3) Baso # (Auto) 0.2 H K/mm3 (0.0-0.1) Abs Immat Gran (auto) 0.65 H K/mm3 (0.00-0.031) Absolute Neuts (auto) 35.5 H K/mm3 (1.3-6.7) Absolute Nucleated RBC 0.000 K/mm3 (0.0-0.012) Nucleated RBC % 0.0 % (0.0-0.2) PT 16.5 H Seconds (11.1-14.7) INR 1.3 APTT 34.3 Seconds (22.3-36.8) Sodium 136 L mmol/L (137-145) Potassium 3.9 mmol/L (3.4-5.0) Chloride 106 mmol/L (98-107) Carbon Dioxide 18 L mmol/L (22-30) Anion Gap 12 mmol/L (4-12) BUN 29 H mg/dL (7-17) Creatinine 2.65 H mg/dL (0.7-1.0) Estim Creat Clear Calc 20 ml/min Estimated GFR 18 L (59 - ) Glucose 141 H mg/dL (65-110) Lactic Acid 1.5 mmol/L (0.7-2.0) Calcium 9.7 mg/dL (8.4-10.2) Magnesium Total Bilirubin 1.0 mg/dL (0.2-1.3) AST 29 U/L (14-36) ALT 16 U/L (6-35) Alkaline Phosphatase 65 U/L (38-126) Troponin I 0.197 H* ng/mL (0.000-0.034) C-Reactive Protein 17.8 H mg/dL (<1.0) Total Protein 7.0 g/dL (6.3-8.2) Albumin 3.5 g/dL (3.5-5.1) Procalcitonin Urine Color Dark yellow (Yellow) Urine Appearance Turbid H (Clear) Urine pH 5.0 (5.0-9.0) Ur Specific [place] 1.019 (1.001-1.035) Urine Protein 3+ H mg/dL (Negative) Urine Glucose (UA) Negative mg/dL (Negative) Urine Ketones Trace H mg/dL (Negative) Ur Blood (Man) 3+ H (Negative) Urine Nitrate Negative (Negative) Urine Bilirubin 2+ H (Negative) Urine Urobilinogen 1.0 mg/dL (<2.0) Add Ur Microanalysis Reviewed Leukocyte Esterase Rfl 3+ H SUZETTE/UL (Negative) Urine RBC >100 H /hpf (0-2) Urine WBC >100 H /hpf (0-3) Urine WBC Clumps Present H /HPF (None) Ur Squamous Epith Cells Many H /hpf (Few) Urine Bacteria Rare /hpf Urine Casts >20 Influenza A (RT-PCR) Negative (Negative) Influenza B (RT-PCR) Negative (Negative) RSV (RT-PCR) Negative (Negative) SARS-CoV-2 RNA (RT-PCR) Negative (Negative) 09/15/24 09/16/24 09/16/24 23:57 05:42 05:43 WBC 25.0 H K/mm3 (4.5-10.0) RBC 2.68 L M/mm3 (4.2-5.4) Hgb 7.7 L g/dL (12.0-15.0) Hct 24.0 L % (37.0-47.0) MCV 89.6 fl (80-100) MCH 28.7 pg (26-34) MCHC 32.1 g/dl (32-36) RDW 14.8 H % (11.5-14.5) Plt Count 220 k/mm3 (150-375) MPV 10.0 fl (7.4-10.4) Immature Gran % (Auto) 1.1 H % (0-0.5) Neut % (Auto) 87.8 H % (45.5-73.1) Lymph % (Auto) 5.9 L % (18.3-44.2) [place] % (Auto) 4.8 % (2.6-8.5) Eos % (Auto) 0.2 % (0-4.4) Baso % (Auto) 0.2 % (0.2-1.2) Lymph # (Auto) 1.48 K/mm3 (0.9-3.2) [place] # (Auto) 1.2 H K/mm3 (0.1-0.6) Eos # (Auto) 0.0 K/mm3 (0-0.3) Baso # (Auto) 0.0 K/mm3 (0.0-0.1) Abs Immat Gran (auto) 0.28 H K/mm3 (0.00-0.031) Absolute Neuts (auto) 21.9 H K/mm3 (1.3-6.7) Absolute Nucleated RBC 0.000 K/mm3 (0.0-0.012) Nucleated RBC % 0.0 % (0.0-0.2) PT INR APTT Sodium 138 mmol/L (137-145) Potassium 3.9 mmol/L (3.4-5.0) Chloride 110 H mmol/L (98-107) Carbon Dioxide 21 L mmol/L (22-30) Anion Gap 7 mmol/L (4-12) BUN 32 H mg/dL (7-17) Creatinine 2.61 H mg/dL (0.7-1.0) Estim Creat Clear Calc 20 ml/min Estimated GFR 18 L (59 - ) Glucose 99 mg/dL (65-110) Lactic Acid Calcium 8.2 L mg/dL (8.4-10.2) Magnesium 1.8 mg/dL (1.6-2.3) Total Bilirubin 0.5 mg/dL (0.2-1.3) AST 43 H U/L (14-36) ALT 12 U/L (6-35) Alkaline Phosphatase 53 U/L (38-126) Troponin I 0.122 H* D ng/mL (0.000-0.034) C-Reactive Protein Total Protein 5.4 L g/dL (6.3-8.2) Albumin 2.6 L g/dL (3.5-5.1) Procalcitonin > 100.0 ng/mL Urine Color Urine Appearance Urine pH Ur Specific [place] Urine Protein Urine Glucose (UA) Urine Ketones Ur Blood (Man) Urine Nitrate Urine Bilirubin Urine Urobilinogen Add Ur Microanalysis Leukocyte Esterase Rfl Urine RBC Urine WBC Urine WBC Clumps Ur Squamous Epith Cells Urine Bacteria Urine Casts Influenza A (RT-PCR) Influenza B (RT-PCR) RSV (RT-PCR) SARS-CoV-2 RNA (RT-PCR) Patient hx anesthesia problems: none Family hx anesthesia problems: none Results Review: All pre-operative results and documents have been reviewed as part of the pre-operative evaluation. [facility] Past Medical History Medical History BMI 32.0-32.9,adult Trochanteric bursitis Left hip pain Chronic right hip pain History of renal calculi (10/2020) Osteopenia Pure hyperglyceridemia Migraine Recurrent cystitis Obstruction of left ureteropelvic junction (UPJ) due to stone Occult blood in stools SLE (systemic lupus erythematosus) Hypertension Surgical History Surgical History History of lithotripsy History of X2 History of hysterectomy with bilateral oophorectomy Family History Family History Sibling Breast cancer Bladder cancer Father Carcinoma of colon Diabetes mellitus Hypertension Mother Cerebrovascular accident Family history of arthritis Social History Social History Smoking status: Never smoker Second hand tobacco smoke exposure: Yes Alcohol intake: never Substance use: never Substance use type: does not use Do You Feel Safe in your Home?: Yes Lack of Transportation: No Lack of Food: Never True Current Housing: I Have Housing Concerned About Future Housing: No Difficulty Paying Gas/Electric Bills: No Difficulty Paying for Meds: No Currently Unemployed: No Education: Associate Degree Difficulty w/ Childcare or Family Care: No Living arrangements: with family Occupation/Education: retired 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 Gender identity (if verbalized by the patient): Female Sexual Orientation (if Verbalized by the Patient): Straight or Heterosexual Spiritual care concerns: No Agree to blood products: Yes Anes - Eval Final PreProcedure Day of Procedure 09/16/24 15:02 Patient weight: overweight Heart: regular rate and rhythm Lungs: clear to auscultation Airway: Mallampati scale class III Neurological: alert and oriented Last oral intake: >/= 8 hours ASA classification: III Emergent: no Anesthetic plan: proceed Anesthesia type and monitoring: general LMA and standard monitoring Results Review: All pre-operative results and documents have been reviewed as part of the pre-operative evaluation. Informed Consent: The patient's anesthetic plan and its attendant risks and benefits were discussed with the patient/family/POA. Questions were solicited and answers provided to the satisfaction of the patient/family/POA.
[2024-09-16] MEDS: LACTATED RINGERS 1,000 ML 30 ML IV CONT (15:05)
[2024-09-16] MEDS: LIDOCAINE 2% GEL UROJET 10 ML PKG MUCOUS MEM (15:35)
--- NOTE | 2024-09-16 15:46 | W.PM.PROC2 ---
Procedure Note - Detailed Date of Procedure 09/16/24 Pre-op Diagnosis UTI, right ureteral calculus Elevated troponin Post-op Diagnosis Same Procedure Performed Cystoscopy, right retrograde, right ureteral stent placement 4.8 [place] contour Surgeon Ricardo Webb MD Anesthesia General Description of Procedure Patient was taken the operative suite correctly identified. Once anesthesia was obtained she was placed in dorsal lithotomy position and prepped and draped usual stellar fashion. Nineteen Barb[place] scope inserted in the bladder. There were no tumors noted. The right ureteral orifice was cannulated with a ureteral catheter and a pyelogram was performed. The stone appeared to be in the mid ureter the contrast made its way into the kidney. Sensor wire was advanced up to the kidney. 4.8 [place] contour stent was then placed with the proximal end coiled in the renal pelvis and the distal end in the bladder. Bladder was drained. 2% viscous lidocaine was inserted into the urethra patient is taken recovery stable condition. Plan will be for her to get over the UTI address the stone later point time. Most likely will need repeat ureteroscopy with stone extraction possible laser stent placement. This completes dictation. Please send a copy of op note to my office Estimated Blood Loss 0 Urine Output 400 Drains Yes Packing No Pathology None sent Complications No immediate complications Condition Stable Disposition PACU
--- NOTE | 2024-09-16 17:14 | PC.NURSE ---
returned from surgery. Urinated without issues.
[2024-09-16] MEDS: FENOFIBRATE NANOCRYSTALLIZED 145 MG TABLET PO (17:19)
[2024-09-17] VITALS (8 sets, daily range): BP systolic 138–164; BP diastolic 65–79; PULSE 90–105; RESP 16–18; TEMP 36.8–37.1; O2SAT 94–100
[2024-09-17 03:52] LABS: Hematocrit 25.3 % (37.0-47.0); Hemoglobin 8.1 g/dL (12.0-15.0); Immature Granulocyte Percent A 1.5 % (0-0.5); Lymphocytes Absolute Auto 1.12 K/mm3 (0.9-3.2); Mean Corpuscular HGB Conc 32.0 g/dl (32-36); Mean Corpuscular Hemoglobin 28.6 pg (26-34); Mean Corpuscular Volume 89.4 fl (80-100); Nucleated Red Blood Cells Absolute Auto 0.000 K/mm3 (0.0-0.012); Nucleated Red Blood Cells Perc 0.0 % (0.0-0.2); Platelet Count Result 248 k/mm3 (150-375); Red Blood Count 2.83 M/mm3 (4.2-5.4); White Blood Count 17.7 K/mm3 (4.5-10.0)
[2024-09-17 04:03] LABS: Alanine Aminotransferase 11 U/L (6-35); Albumin Level 2.5 g/dL (3.5-5.1); Alkaline Phosphatase 57 U/L (38-126); Anion Gap 4 mmol/L (4-12); Aspartate Amino Transferase 20 U/L (14-36); Bilirubin,Total 0.3 mg/dL (0.2-1.3); Blood Urea Nitrogen 29 mg/dL (7-17); Calcium 8.3 mg/dL (8.4-10.2); Carbon Dioxide 21 mmol/L (22-30); Chloride 110 mmol/L (98-107); Estimated CRCL calculation 29 ml/min; Estimated Glomerular Filt Rate 29; Glucose 81 mg/dL (65-110); Magnesium 1.8 mg/dL (1.6-2.3); Potassium 3.7 mmol/L (3.4-5.0); Sodium 135 mmol/L (137-145); Total Protein 5.0 g/dL (6.3-8.2)
[2024-09-17] MEDS: SODIUM CHLORIDE 0.9% IV 1,000 ML 125 ML IV CONT (06:15)
--- NOTE | 2024-09-17 09:09 | P.PNIM_ITS ---
Progress Note: A&P Assessment and Plan (1) Sepsis: Code(s): A41.9 - Sepsis, unspecified organism Status: Acute Assessment and Plan: Secondary to UTI with obstructing stone. Blood and urine culture sent and pending Continue IV Rocephin WBC improving Monitor (2) Acute UTI: Code(s): N39.0 - Urinary tract infection, site not specified Status: Acute (3) Right ureteral calculus: Code(s): N20.1 - Calculus of ureter Status: Acute Assessment and Plan: Status post cystoscopy and stenting by Urology. (4) Hypertension: Code(s): I10 - Essential (primary) hypertension Status: Acute Assessment and Plan: Resume verapamil but and short-acting foam. Hold losartan for now until renal function improves (5) Acute kidney injury: Code(s): N17.9 - Acute kidney failure, unspecified Status: Acute Assessment and Plan: Secondary to kidney stone and sepsis. Improving with IV fluids. Decrease of IV fluids to 75 mL and change to LR (6) Atelectasis: Code(s): J98.11 - Atelectasis Status: Acute Assessment and Plan: Will order incentive spirometry (7) Electrolyte abnormality: Code(s): E87.8 - Other disorders of electrolyte and fluid balance, not elsewhere classified Status: Acute Assessment and Plan: Replace low potassium (8) Elevated troponin: Code(s): R79.89 - Other specified abnormal findings of blood chemistry Status: Acute Assessment and Plan: Likely secondary to stress from sepsis. EKG reviewed. Patient denies any chest pain. Check echocardiogram. Plan Transfer to medical floor DVT prophylaxis Lovenox Code status full code Subjective Date/time seen: 09/17/24 Overnight events reviewed. Afebrile On room air Good urine output. Tolerating p.o. diet. Blood pressure slightly elevated. Denies any new complaints. States she feels better than yesterday. She still has some dry cough. Denies any chest pain abdominal pain nausea vomiting headache dizziness lightheadedness chills rigors or fever. All other systems were reviewed and were negative Review of Systems Review of Systems: All systems reviewed & are unremarkable except as noted in HPI and below (HPI) Exam Narrative: GENERAL: Well-appearing, well-nourished, and in no acute distress. HEAD: Normocephalic, atraumatic. EYES: EOMI. ENT: Nares clear, no rhinorrhea or epistaxis. Mucous membranes moist. CHEST: Clear to auscultation. No respiratory distress. No wheezes rales or rhonchi HEART: Regular rate and rhythm. No murmur heard. Normal peripheral pulses. ABDOMEN: Soft, nontender, nondistended, normal active bowel sounds. EXTREMITIES: Normal range of motion. No edema. SKIN: Warm, dry, no rash. NEURO: No focal deficits. Alert and oriented x3. PSYCH: Normal mood and affect Objective Data Vital Signs Vital Signs: Vital Signs - 24 hr 09/16/24 10:00 09/16/24 11:50 09/16/24 12:00 Temperature 36.9 C Pulse Rate 83 81 84 Respiratory Rate 18 Blood Pressure 133/69 Pulse Oximetry 100 Oxygen Delivery Oxygen Flow Rate 09/16/24 14:00 09/16/24 15:03 09/16/24 15:50 Temperature 37.6 C H 37.0 C Pulse Rate 84 90 96 Respiratory Rate 16 12 Blood Pressure 146/70 H 99/56 L Pulse Oximetry 99 100 Oxygen Delivery Room Air Simple Face Mask Oxygen Flow Rate 6 09/16/24 16:05 09/16/24 16:20 09/16/24 16:35 Temperature Pulse Rate 96 92 90 Respiratory Rate 12 14 14 Blood Pressure 114/57 L 124/61 120/62 Pulse Oximetry 100 99 97 Oxygen Delivery Simple Face Mask Room Air Room Air Oxygen Flow Rate 6 09/16/24 16:50 09/16/24 17:00 09/16/24 17:21 Temperature 37.1 C 36.7 C Pulse Rate 88 87 83 Respiratory Rate 12 12 12 Blood Pressure 118/62 120/61 140/66 Pulse Oximetry 97 97 97 Oxygen Delivery Room Air Room Air Oxygen Flow Rate 09/16/24 17:30 09/16/24 18:00 09/16/24 18:00 Temperature Pulse Rate 86 86 90 Respiratory Rate 11 L 17 Blood Pressure 117/60 118/73 Pulse Oximetry 97 100 Oxygen Delivery Oxygen Flow Rate 09/16/24 20:00 09/16/24 20:00 09/16/24 20:18 Temperature 36.8 C Pulse Rate 93 93 93 Respiratory Rate 15 15 Blood Pressure 117/65 Pulse Oximetry 96 96 Oxygen Delivery Room Air Oxygen Flow Rate 09/16/24 22:00 09/16/24 23:28 09/16/24 23:30 Temperature 36.6 C Pulse Rate 98 110 H 108 H Respiratory Rate 17 17 Blood Pressure 134/66 Pulse Oximetry 96 96 Oxygen Delivery Room Air Oxygen Flow Rate 09/17/24 00:00 09/17/24 02:00 09/17/24 03:45 Temperature Pulse Rate 93 90 97 Respiratory Rate 17 Blood Pressure Pulse Oximetry 97 Oxygen Delivery Room Air Oxygen Flow Rate 09/17/24 04:00 09/17/24 04:00 09/17/24 06:00 Temperature 36.8 C Pulse Rate 99 100 105 H Respiratory Rate 17 Blood Pressure 138/65 Pulse Oximetry 97 Oxygen Delivery Oxygen Flow Rate 09/17/24 08:00 Temperature 37.0 C Pulse Rate 98 Respiratory Rate 17 Blood Pressure 140/70 Pulse Oximetry 94 Oxygen Delivery Oxygen Flow Rate Intake/Output Intake/Output: Intake & Output 09/14/24 09/15/24 09/16/24 09/17/24 23:59 23:59 23:59 23:59 Intake Total 1000 3592.5 1132.6 Output Total 1500 700 Balance 1000 2092.5 432.6 Meds/Results Medications: Active Medications Generic Name Dose Route Start Last Admin Trade Name Freq PRN Reason Stop Dose Admin Fenofibrate 145 mg 09/16/24 18:00 09/16/24 17:19 Fenofibrate Nanocrystallized 145 Mg Tablet PO 145 mg QPM MICHELE Administration Ceftriaxone Sodium 2 gm/ 50 mls @ 100 mls/hr 09/16/24 12:00 09/16/24 13:25 Sodium Chloride IVPB Infused Q24H MICHELE Infusion Lactated Ringer's 1,000 mls @ 75 mls/hr 09/17/24 08:40 Lr - Lactated Ringers Iv IV CONT .[id number] MICHELE Perflutren Lipid Microsphere 0 ml 09/17/24 08:36 Perflutren Lipid Microspheres 1.5 Ml Vial Diluted To 10 Ml Total Volume IV PUSH 09/20/24 08:37 ONCE PRN adequate visualization Protocol Trazodone HCl 100 mg 09/16/24 21:00 09/16/24 20:35 Trazodone Hcl 50 Mg Tablet PO 100 mg HS MICHELE Administration Verapamil HCl 40 mg 09/17/24 14:00 Verapamil Hcl 40 Mg Tablet PO Q8HR [facility] Radiology Results: ITS Impressions Chest X-Ray 09/15/24 19:08 IMPRESSION: Trace left basilar atelectasis, without focal infiltrate or effusion. Chest/Abdomen/Pelvis CT 09/15/24 22:26 IMPRESSION: Moderate right-sided hydroureteronephrosis secondary to a 5 mm calculus proximal to mid right ureter. Abdomen X-Ray 09/16/24 07:27 Impression: 1: Possible right ureteral stone at the L4-5 level. 2: Left nephrolithiasis. Labs Labs: Laboratory Results - last 24 hr 09/17/24 03:26 WBC 17.7 H RBC 2.83 L Hgb 8.1 L Hct 25.3 L MCV 89.4 MCH 28.6 MCHC 32.0 RDW 15.3 H Plt Count 248 MPV 10.2 Immature Gran % (Auto) 1.5 H Neut % (Auto) 85.8 H Lymph % (Auto) 6.3 L [place] % (Auto) 4.7 Eos % (Auto) 1.5 Baso % (Auto) 0.2 Lymph # (Auto) 1.12 [place] # (Auto) 0.8 H Eos # (Auto) 0.3 Baso # (Auto) 0.0 Abs Immat Gran (auto) 0.26 H Absolute Neuts (auto) 15.2 H Absolute Nucleated RBC 0.000 Nucleated RBC % 0.0 Sodium 135 L Potassium 3.7 Chloride 110 H Carbon Dioxide 21 L Anion Gap 4 BUN 29 H Creatinine 1.76 H Estim Creat Clear Calc 29 Estimated GFR 29 L Glucose 81 Calcium 8.3 L Magnesium 1.8 Total Bilirubin 0.3 AST 20 ALT 11 Alkaline Phosphatase 57 Total Protein 5.0 L Albumin 2.5 L
[2024-09-17] MEDS: POTASSIUM CHLORIDE 20 MEQ ER TABLET 40 MEQ PO (09:11)
[2024-09-17] MEDS: LACTATED RINGERS 1,000 ML 75 ML IV CONT ×2 (09:49→23:45)
--- NOTE | 2024-09-17 11:09 | PC.NURSE ---
This patient, Qi Anderson, was transferred to [facility] on 09/17/24 at 1045. Personal belongings sent with patient. Appropriate documentation sent with patient.
--- NOTE | 2024-09-17 11:34 | PC.NURSE ---
This patient, Qi Anderson, was received from ICU 4 on 09/17/24 at 1134. Patient/family oriented to unit policies and routines.
[2024-09-17] MEDS: cefTRIAXone 2 GM in SODIUM CHLORIDE 0.9% IV 100 ML 200 ML IVPB (12:56)
[2024-09-17] MEDS: VERAPAMIL HCL 40 MG TABLET PO ×2 (15:37→21:56)
[2024-09-17] MEDS: FENOFIBRATE NANOCRYSTALLIZED 145 MG TABLET PO (17:38)
--- NOTE | 2024-09-17 18:11 | P.PNUR_ITS ---
Progress Note: A&P Assessment and Plan (1) Right ureteral calculus: Code(s): N20.1 - Calculus of ureter Status: Acute Assessment and Plan: 69y old POD1 Cystoscopy, right retrograde, right ureteral stent placement 4.8 [place] contour. -wbc 17.7 today from 38.4 -cr 1.76 today from 2.65 -urine culture still pending. culture driven antibiotic therapy per primary service. -Discussed stone management after resolution of infection. Also discussed stent and stent removal later after the stone has been removed. Patient voiced understanding. Subjective Subjective Date/Time Seen: 09/17/24 18:11 Interval history: patient reports she feels better. she is showing great improvement in her cr and wbc. Review of Systems Review of Systems: All systems reviewed & are unremarkable except as noted in HPI and below Exam Const: General: cooperative, comfortable and no acute distress Resp: Effort & Inspection: normal respiratory effort Cardio: Rate: regular rate Rhythm: regular rhythm Objective Data Vital Signs Vital Signs: Vital Signs - 24 hr 09/16/24 20:00 09/16/24 20:00 09/16/24 20:18 Temperature 98.2 F Pulse Rate 93 93 93 Respiratory Rate 15 15 Blood Pressure 117/65 Pulse Oximetry 96 96 Oxygen Delivery Room Air 09/16/24 22:00 09/16/24 23:28 09/16/24 23:30 Temperature 98 F Pulse Rate 98 110 H 108 H Respiratory Rate 17 17 Blood Pressure 134/66 Pulse Oximetry 96 96 Oxygen Delivery Room Air 09/17/24 00:00 09/17/24 02:00 09/17/24 03:45 Temperature Pulse Rate 93 90 97 Respiratory Rate 17 Blood Pressure Pulse Oximetry 97 Oxygen Delivery Room Air 09/17/24 04:00 09/17/24 04:00 09/17/24 06:00 Temperature 98.2 F Pulse Rate 99 100 105 H Respiratory Rate 17 Blood Pressure 138/65 Pulse Oximetry 97 Oxygen Delivery 09/17/24 08:00 09/17/24 08:00 09/17/24 08:00 Temperature 98.6 F Pulse Rate 98 96 Respiratory Rate 17 Blood Pressure 140/70 Pulse Oximetry 94 Oxygen Delivery Room Air 09/17/24 15:42 Temperature 98.3 F Pulse Rate 104 H Respiratory Rate 18 Blood Pressure 164/75 H Pulse Oximetry 98 Oxygen Delivery Intake/Output Intake/Output: Intake & Output 09/14/24 09/15/24 09/16/24 09/17/24 23:59 23:59 23:59 23:59 Intake Total 1000 3592.5 1602.6 Output Total 1500 900 Balance 1000 2092.5 702.6 Meds/Results Medications: Active Medications Generic Name Dose Route Start Last Admin Trade Name Freq PRN Reason Stop Dose Admin Fenofibrate 145 mg 09/16/24 18:00 09/17/24 17:38 Fenofibrate Nanocrystallized 145 Mg Tablet PO 145 mg QPM MICHELE Administration Lactated Ringer's 1,000 mls @ 75 mls/hr 09/17/24 08:40 09/17/24 09:49 Lr - Lactated Ringers Iv IV CONT 75 mls/hr .[id number] MICHELE Administration Ceftriaxone Sodium 2 gm/ 100 mls @ 200 mls/hr 09/17/24 13:00 09/17/24 13:26 Sodium Chloride IVPB Infused Q24H MICHELE Infusion Perflutren Lipid Microsphere 0 ml 09/17/24 08:36 Perflutren Lipid Microspheres 1.5 Ml Vial Diluted To 10 Ml Total Volume IV PUSH 09/20/24 08:37 ONCE PRN adequate visualization Protocol Trazodone HCl 100 mg 09/16/24 21:00 09/16/24 20:35 Trazodone Hcl 50 Mg Tablet PO 100 mg HS MICHELE Administration Verapamil HCl 40 mg 09/17/24 14:00 09/17/24 15:37 Verapamil Hcl 40 Mg Tablet PO 40 mg Q8HR MICHELE Administration Radiology Results: ITS Impressions Chest X-Ray 09/15/24 19:08 IMPRESSION: Trace left basilar atelectasis, without focal infiltrate or effusion. Chest/Abdomen/Pelvis CT 09/15/24 22:26 IMPRESSION: Moderate right-sided hydroureteronephrosis secondary to a 5 mm calculus proximal to mid right ureter. Abdomen X-Ray 09/16/24 07:27 Impression: 1: Possible right ureteral stone at the L4-5 level. 2: Left nephrolithiasis. Labs Labs: Laboratory Results - last 24 hr 09/17/24 03:26 WBC 17.7 H RBC 2.83 L Hgb 8.1 L Hct 25.3 L MCV 89.4 MCH 28.6 MCHC 32.0 RDW 15.3 H Plt Count 248 MPV 10.2 Immature Gran % (Auto) 1.5 H Neut % (Auto) 85.8 H Lymph % (Auto) 6.3 L [place] % (Auto) 4.7 Eos % (Auto) 1.5 Baso % (Auto) 0.2 Lymph # (Auto) 1.12 [place] # (Auto) 0.8 H Eos # (Auto) 0.3 Baso # (Auto) 0.0 Abs Immat Gran (auto) 0.26 H Absolute Neuts (auto) 15.2 H Absolute Nucleated RBC 0.000 Nucleated RBC % 0.0 Sodium 135 L Potassium 3.7 Chloride 110 H Carbon Dioxide 21 L Anion Gap 4 BUN 29 H Creatinine 1.76 H Estim Creat Clear Calc 29 Estimated GFR 29 L Glucose 81 Calcium 8.3 L Magnesium 1.8 Total Bilirubin 0.3 AST 20 ALT 11 Alkaline Phosphatase 57 Total Protein 5.0 L Albumin 2.5 L
--- NOTE | 2024-09-18 | ECHO_ITS ---
Patient Info Name: Qi Anderson Age: 69 years : 1955 Gender: Female Ht: 65 in Wt: 179 lbs BSA: 1.95 m2 HR: 80 bpm BP: 169 / 86 mmHg Technical Quality: Good Exam Date: 09/18/2024 9:27 AM Patient Status: I Admit Date: 09/16/2024 Exam Type: CA echo doppler color flow Complete two-dimensional, color flow and Doppler transthoracic echocardiogram is performed. Staff Referring Physician: Ricardo Webb MD Livestock Caretaker: Aurelia Castellanos Attending Provider: Nadia Watson Summary 1. Complete two-dimensional, color flow and Doppler transthoracic echocardiogram is performed. 2. Left ventricular chamber dimension is normal. 3. Left ventricular systolic function is normal, estimated at 60-65. 4. There is mild concentric increased left ventricular wall thickness. 5. The left ventricular diastolic function is grade I diastolic dysfunction. 6. There is mild mitral valve regurgitation. 7. There is trace pulmonic regurgitation. 8. Dilated inferior vena cava with >50% collapse upon inspiration consistent with elevated right atrial pressure, 10 mmHg. Left Ventricle Tissue doppler was not performed. Left ventricular chamber dimension is normal. Left ventricular systolic function is normal, estimated at 60-65. There is mild concentric increased left ventricular wall thickness. The left ventricular diastolic function is grade I diastolic dysfunction. Right Ventricle Right ventricular chamber dimension is normal. Right ventricular systolic function is normal. Left Atria Left atrial chamber dimension is normal. Right Atria Right atrial chamber dimension is normal. Aortic Valve The aortic valve is trileaflet. There is no aortic valve stenosis. There is no aortic valve regurgitation. Pulmonic Valve There is trace pulmonic regurgitation. Mitral Valve There is no mitral valve stenosis. There is mild mitral valve regurgitation. Tricuspid Valve There is no tricuspid valve regurgitation. Pericardium/Pleural There is no pericardial effusion. Inferior Vena Cava Dilated inferior vena cava with >50% collapse upon inspiration consistent with elevated right atrial pressure, 10 mmHg. Aorta The aortic root size at the sinus of Valsalva is normal. Left Ventricular Outflow Tract Name Value Normal LVOT 2D LVOT Diameter 2.0 cm LVOT Doppler LVOT Peak Velocity 126 cm/s LVOT Peak Gradient 6 mmHg LVOT Mean Gradient 3 mmHg LVOT VTI 24 cm LVOT Stroke Volume 76 ml LVOT CO 6.1 l/min LVOT CI 3.1 l/min/m2 Pulmonic Valve Name Value Normal RVOT Doppler RVOT Peak Velocity 97 cm/s RVOT Peak Gradient 4 mmHg PV Doppler PV Peak Velocity 109 cm/s PV Peak Gradient 5 mmHg PV Regurgitation Doppler FL Peak End Diastolic Velocity 141 cm/s Mitral Valve Name Value Normal MV Diastolic Function MV E Peak Velocity 79 cm/s MV A Peak Velocity 111 cm/s MV E/A 0.7 MV Decel Time (PW) 253 ms Tricuspid Valve Name Value Normal Estimated PAP/RSVP RA Pressure 10 mmHg <=5 Aortic Valve Name Value Normal AV Doppler AV Peak Velocity 155 cm/s AV Peak Gradient 10 mmHg AV Area (Cont Eq Sid) 2.6 cm2 AV DI (Sid) 0.81 AV Regurgitation 2D LVOT Area 3.2 cm2 Ventricles Name Value Normal LV Dimensions 2D/MM IVS Diastolic Thickness (2D) 1.3 cm 0.6-1.0 LVID Diastole (2D) 4.1 cm 3.8-5.2 LVIW Diastolic Thickness (2D) 1.0 cm 0.6-0.9 LVID Systole (2D) 2.9 cm 2.2-3.5 LVOT Diameter 2.0 cm LV Mass (2D Cubed) 162.52 g 67.00-162.00 LV Mass Index (2D Cubed) 83 g/m2 43-95 Relative Wall Thickness (2D) 0.50 <=0.42 LV Fractional Shortening/Ejection Fraction 2D/MM LV Fractional Shortening (2D) 30 % 27-45 LV EF (2D Teichholz) 57 % LV Diastolic Volume (4C MOD) 103 ml LV EF (4C MOD) 59 % LV Diastolic Volume (2C MOD) 108 ml LV EF (2C MOD) 60 % LV Diastolic Volume (BP MOD) 107 ml 46-106 LV Diastolic Volume Index (BP MOD) 55 ml/m2 29-61 LV Systolic Volume (BP MOD) 43 ml 14-42 LV Systolic Volume Index (BP MOD) 22 ml/m2 8-24 LV EF (BP MOD) 60 % 54-74 LV Diastolic Length (4C) 8.6 cm LV Systolic Length (4C) 7.5 cm LV Stroke Volume (4C MOD) 61 ml Atria Name Value Normal LA Dimensions LA Volume (4C A-L) 44 ml LA Volume (BP A-L) 41 ml RA Dimensions RA Systolic Major [place] Length (4C) 4.9 cm 2.2-2.8 RA Area (4C) 10.1 cm2 <=18.0 Report Signatures
[2024-09-18 04:59] VITALS: BP 169/86; PULSE 94; RESP 17; TEMP 36.7; O2SAT 96
[2024-09-18] MEDS: VERAPAMIL HCL 40 MG TABLET PO ×2 (05:33→12:44)
[2024-09-18 06:21] LABS: Hematocrit 24.6 % (37.0-47.0); Hemoglobin 8.0 g/dL (12.0-15.0); Mean Corpuscular HGB Conc 32.5 g/dl (32-36); Mean Corpuscular Hemoglobin 28.8 pg (26-34); Mean Corpuscular Volume 88.5 fl (80-100); Platelet Count Result 273 k/mm3 (150-375); Red Blood Count 2.78 M/mm3 (4.2-5.4); White Blood Count 8.6 K/mm3 (4.5-10.0)
[2024-09-18 07:11] LABS: Alanine Aminotransferase 12 U/L (6-35); Albumin Level 2.8 g/dL (3.5-5.1); Alkaline Phosphatase 60 U/L (38-126); Anion Gap 7 mmol/L (4-12); Aspartate Amino Transferase 25 U/L (14-36); Bilirubin,Total 0.3 mg/dL (0.2-1.3); Blood Urea Nitrogen 18 mg/dL (7-17); Calcium 9.0 mg/dL (8.4-10.2); Carbon Dioxide 21 mmol/L (22-30); Chloride 111 mmol/L (98-107); Estimated CRCL calculation 40 ml/min; Estimated Glomerular Filt Rate 42; Glucose 85 mg/dL (65-110); Magnesium 1.9 mg/dL (1.6-2.3); Potassium 4.0 mmol/L (3.4-5.0); Sodium 139 mmol/L (137-145); Total Protein 5.8 g/dL (6.3-8.2)
[2024-09-18] MEDS: cefTRIAXone 2 GM in SODIUM CHLORIDE 0.9% IV 100 ML 200 ML IVPB (12:43)
[2024-09-18 14:00] VITALS: BP 164/95; PULSE 90; RESP 18; TEMP 36.7; O2SAT 98
--- NOTE | 2024-09-18 15:56 | PM.DS ---
DS: Admitting Diagnosis Discharge Date 09/18/24 Admitting Diagnosis Fever DS: Discharge Diagnosis Discharge Diagnosis (1) Sepsis: Code(s): A41.9 - Sepsis, unspecified organism Status: Acute (2) Acute UTI: Code(s): N39.0 - Urinary tract infection, site not specified Status: Acute (3) Right ureteral calculus: Code(s): N20.1 - Calculus of ureter Status: Acute (4) Acute kidney injury: Code(s): N17.9 - Acute kidney failure, unspecified Status: Acute (5) Hypertension: Code(s): I10 - Essential (primary) hypertension Status: Acute (6) Atelectasis: Code(s): J98.11 - Atelectasis Status: Acute (7) Electrolyte abnormality: Code(s): E87.8 - Other disorders of electrolyte and fluid balance, not elsewhere classified Status: Acute (8) Elevated troponin: Code(s): R79.89 - Other specified abnormal findings of blood chemistry Status: Acute DS: Summary Hospital Course Reason for hospitalization: 69yo female with SLE, HTN and renal stones who presented to the ER with fever and chills. Please see H&P for details. Hospital Course: In the ED, patient was tachycardic with normal blood pressure. Tachycardia improved with IV fluids. WBC 38.4K, bicarbonate 18, BUN 29, creatinine of 2.65, and lactate was normal at 1.5. Troponin was elevated 0.197 with repeat trending down. CRP 17.8. UA was suggestive of UTI. Influenza, RSV, and COVID swab was negative. PCT was >100. She was started on ceftriaxone in the ER. CXR showed trace left basilar atelectasis without focal infiltrate or effusion. CT chest/abdomen/pelvis showed moderate right-sided hydroureteronephrosis secondary to 5 mm calculus proximal to mid right ureter. She was admitted to the ICU. Sepsis secondary to UTI with obstructing stone. Urology consulted and she underwent cystoscopy with right ureteral stent placement on 09/16/24. She tolerated the procedure well. Her WBC normalized. Cr dropped to 1.3. BCx remained no growth to date. UCx was pending. Echo showing EF 60%, mild LVH with grade I diastolic dysfunction and mild valve disease. Elevated Rt atrial pressure noted felt related to fluid resuscitation. EKG showing sinus tachycardia (102) with IVCD. Repeat EKG showed similar findings. Elevated Troponin related secondary to stress from sepsis. Plan for patient to followup with Cardiology after discharge. She feels much better. She is up ambulating to the bathroom and is asking for discharge. Discharge instructions were discusses in detail and all questions answered. She overall did well and was able to be discharged home on 09/18/24. Status at Discharge Cognitive/behavioral status at discharge: stable Time Spent with Patient Time attestation: Total time spent providing and/or coordinating discharge services: 35 minutes Time spent: Greater than 30 minutes Exam Narrative: AF 98.0 169/86 84 17 96% ra Gen - NARD Chest - CTA bilaterally, nml RR CV - RRR S1/S2 Abd - Soft, NT/ND, Positive BS Ext - trace pedal edema Psych - Nml mood and affect Skin - Warm and dry DS: Data Data Completed and Pending Labs on day of discharge: Labs from last 24 hours 09/18/24 05:00 WBC 8.6 RBC 2.78 L Hgb 8.0 L Hct 24.6 L MCV 88.5 MCH 28.8 MCHC 32.5 RDW 15.3 H Plt Count 273 MPV 10.3 Sodium 139 Potassium 4.0 Chloride 111 H Carbon Dioxide 21 L Anion Gap 7 BUN 18 H D Creatinine 1.26 H Estim Creat Clear Calc 40 Estimated GFR 42 L Glucose 85 Calcium 9.0 Magnesium 1.9 Total Bilirubin 0.3 AST 25 ALT 12 Alkaline Phosphatase 60 Total Protein 5.8 L Albumin 2.8 L Preliminary micro results at discharge 09/15/24 22:49 Blood Culture - Preliminary Blood 09/15/24 22:47 Blood Culture - Preliminary Blood Discharge Plan Discharge Attending physician on discharge: David Montalvo Consulting providers: Ricardo Webb Discharging Clinician: David Montalvo Anticipated Discharge Date/Time: 09/18/24 16:10 Patient Disposition: Home Activity: as tolerated Diet: heart healthy Discharge Instructions: Check blood pressure 1 to 2 times a day. Record and bring into your doctor for review. Call your doctor if your blood pressure is greater than 180/110. Please complete your antibiotic course even if you are starting to feel well. Contact your doctor or call 911 and come to the Emergency Room if you have fevers, abdominal/back pain or other worrisome symptoms. Avoid NSAIDs (ibuprofen, naproxen, Aleve). Tylenol is safe to take. Follow-up with your primary care provider in 1-2 weeks. Please call for appointment. Follow-up with Cardiology in 2-3 weeks. Please call for an appointment. Follow-up with Urology in 3-4 weeks. Please call for an appointment. Thank you for using [facility] for your health care needs. Patient Instructions: Antibiotic Form, Kidney Stones (GEN) Patient Language: Nigerien Stand Alone Forms: General Discharge Information Follow-up/Referrals: Drew Russell DO [Physician] - Call for Appointment (Elevated Troponin when hospitalized for sepsis) Ricardo Webb MD [Physician] - Call for Appointment Chacorta Valenzuela MD [Primary Care Provider] - Call for Appointment Discharge Medications: New amoxicillin-pot clavulanate 875-125 mg tablet 1 tablet PO Q12H Qty: 8 0RF Continued apple cider vinegar 600 mg capsule 600 mg PO DAILY losartan 100 mg tablet 100 mg PO DAILY Qty: 90 3RF trazodone 100 mg tablet 100 mg PO HS Qty: 90 3RF fenofibrate 160 mg tablet 160 mg PO QPM Qty: 90 3RF verapamil 120 mg capsule,ext rel. pellets 24 hr 120 mg PO DAILY Qty: 90 1RF Held meloxicam 15 mg tablet 15 mg PO DAILY Qty: 90 2RF Hold Instructions: Resume in 2-3 days Date of admission: 09/16/24 10:59 Primary Care Provider: Chacorta Valenzuela Admitting Provider: Nadia Watson Attending physician on admission: Nadia Watson Condition: Stable Hospitalist MIPS Heart Failure (Exclusion) Patient has history of Heart Transplant or Left Ventricular Assistive Device?: No IF YES, STOP HERE Heart Failure (Qualifier) Patient has current or prior documentation of LVEF less than or equal to 40%, or mod/servere depressed LVSF?: No IF NO, STOP HERE
[2024-09-18] MEDS: FENOFIBRATE NANOCRYSTALLIZED 145 MG TABLET PO (16:31)
--- NOTE | 2024-09-22 10:01 | PC.NURSE ---
Blood cx show no growth. Dr. Katia gordon.
== END 2024-09-18 16:55 | disposition home or self-care (01) | DRG 854 ==
LOC: ANHED 09-16 01:23 → ANHIMU 09-16 02:27 → ANHICU 09-16 07:38 → ANH3MEDSUR 09-17 11:08
PROVIDERS: Internal Medicine; Registered Nurse; Urology; Admitting Provider General Practice; Emergency Provider Physician Assistant; PCP Family Medicine Adolescent Medicine; Visit Provider Internal Medicine
PROC: 0T768DZ Dilation of Right Ureter with Intraluminal Device, Via Natural or Artificial Opening Endoscopic (ICD-10-PCS; CPT 52352; principal; 2024-09-16 14:30)
DX: A41.9 Sepsis, unspecified organism (principal); J98.11 Atelectasis; N13.6 Pyonephrosis; N17.9 Acute kidney failure, unspecified; I10 Essential (primary) hypertension; E87.8 Other disorders of electrolyte and fluid balance, not elsewhere classified; R79.89 Other specified abnormal findings of blood chemistry; M85.80 Other specified disorders of bone density and structure, unspecified site; M32.9 Systemic lupus erythematosus, unspecified; Z20.822 Contact with and (suspected) exposure to COVID-19; Z87.442 Personal history of urinary calculi
CPT/HCPCS: 36415; 71046; 71250; 74018; 74176; 74420; 80053; 81001; 83605; 83735; 84145; 84484; 85025; 85027; 85610; 85730; 86140; 87040; 87637; 93005; 93306; 96361; 96365; 96366; 96375; 99285; A9270; C1758; C1769; C2617; G0378; J0696; J1200; J2250; J2270; J2704; J2765; J7030; J7120; Q9966